=== PATIENT | male | born 1970 | race Caucasian/White ===

== ENCOUNTER 2017-01-24 04:00 | Emergency (ER) | payer MEDICARE ==
--- NOTE | 2017-01-24 04:51 | ER Document Report ---
ED Extremity Problem, Lower - General Chief Complaint: Knee Pain Stated Complaint: FALL/LEFT KNEE PAIN Time Seen by Provider: 01/24/17 04:47 Mode of Arrival: Wheelchair Information source: Patient Notes: 46 yo obese diabetic male slipped and fell 3 times on his left knee yesterday. Increased swelling and pain but able to walk on it. Hx gout in toe. No fever or generalized pain. Xray has been done and is negative. TRAVEL OUTSIDE OF THE [place] IN LAST 30 DAYS: No - Related Data Allergies/Adverse Reactions: Iodinated Contrast Media - Oral and [IV Dye, Iodine Containing] Allergy ( Verified 01/24/17 06:25) Anaphylaxis iodine Allergy (Verified 01/24/17 06:25) Shellfish * [Shellfish] Allergy (Verified 01/24/17 06:25) Past Medical History - General Information source: Patient - Social History Smoking Status: Current Every Day Smoker Frequency of alcohol use: None Drug Abuse: None Lives with: Spouse/Significant other Family History: Reviewed & Not Pertinent Patient has suicidal ideation: No Patient has homicidal ideation: No - Past Medical History Cardiac Medical History: Reports: Hx Atrial Fibrillation, Hx Congestive Heart Failure, Hx Coronary Artery Disease, Hx Heart Attack - 2013, Hx Hypercholesterolemia, Hx Hypertension Pulmonary Medical History: Denies: Hx Tuberculosis Neurological Medical History: Reports: Hx Migraine Endocrine Medical History: Reports: Hx Diabetes Mellitus Type 2 Renal/ Medical History: Reports: Hx Kidney Stones. Denies: Hx Peritoneal Dialysis Musculoskeltal Medical History: Reports Hx Arthritis, Reports Hx Musculoskeletal Deformity, Reports Hx Musculoskeletal Trauma Psychiatric Medical History: Reports: Hx Depression Traumatic Medical History: Reports: Hx Fractures Past Surgical History: Reports: Hx Cardiac Catheterization - x 10-12, Hx Cardiac Surgery - pacer/defib; stents x 2, Hx Internal Defibrillator, Hx Orthopedic Surgery - L knee x2; R knee x13, Hx Pacemaker - Immunizations Immunizations up to date: Yes Hx Diphtheria, Pertussis, Tetanus Vaccination: Yes Hx Pneumococcal Vaccination: 07/26/12 Review of Systems - Review of Systems Constitutional: No symptoms reported EENT: No symptoms reported Cardiovascular: No symptoms reported Respiratory: No symptoms reported Gastrointestinal: No symptoms reported Genitourinary: No symptoms reported Male Genitourinary: No symptoms reported Musculoskeletal: See HPI Skin: No symptoms reported Hematologic/Lymphatic: No symptoms reported Neurological/Psychological: No symptoms reported Physical Exam - Vital signs Vitals: Temp Pulse Resp BP Pulse Ox 98.5 F 102 H 16 126/87 H 97 01/24/17 04:03 01/24/17 04:03 01/24/17 04:03 01/24/17 04:03 01/24/17 04:03 Interpretation: Normal - General General appearance: Appears well, Alert - HEENT Head: Normocephalic, Atraumatic Eyes: Normal Pupils: PERRL Neck: Supple - Respiratory Respiratory status: No respiratory distress Chest status: Nontender Breath sounds: Normal Chest palpation: Normal - Cardiovascular Rhythm: Regular Heart sounds: Normal auscultation Murmur: No - Abdominal Inspection: Normal Distension: No distension Bowel sounds: Normal Tenderness: Nontender Organomegaly: No organomegaly - Back Back: Normal, Nontender - Extremities General upper extremity: Normal inspection, Nontender, Normal color, Normal ROM , Normal temperature General lower extremity: Normal inspection, Nontender, Normal color, Normal ROM , Normal temperature, Normal weight bearing. No: Ike's sign Knee: Tender - mild anterior left knee erythema, Joint effusion, Pain with ROM, Patellar tendon intact. No: Tender joint line, Unable to bear weight - Neurological Neuro grossly intact: Yes Cognition: Normal Orientation: AAOx4 [place] Coma Scale Eye Opening: Spontaneous [place] Coma Scale Verbal: Oriented [place] Coma Scale Motor: Obeys Commands [place] Coma Scale Total: 15 Speech: Normal Motor strength normal: LUE, RUE, LLE, RLE Sensory: Normal - Psychological Associated symptoms: Normal affect, Normal mood - Skin Skin Temperature: Warm Skin Moisture: Dry Skin Color: Normal Course - Re-evaluation Re-evalutation: 01/24/17 06:30 xray shows effusion, arthritis. - Vital Signs Vital signs: Temp Pulse Resp BP Pulse Ox 98.2 F 90 18 105/60 93 01/24/17 06:36 01/24/17 06:36 01/24/17 06:36 01/24/17 06:36 01/24/17 06:36 - Laboratory Result Diagrams: 01/24/17 05:30 01/24/17 05:30 Laboratory results interpreted by me: 01/24/17 01/24/17 05:30 05:30 WBC 14.8 H RDW 14.4 H Seg Neutrophils % 84.6 H Lymphocytes % 6.2 L Absolute Neutrophils 12.5 H Chloride 95 L Glucose 290 H Uric Acid 8.8 H Calcium 10.3 H Procedures - Immobilization Left Knee Time completed: 06:50 Pre-Proc Neuro Vasc Exam: Normal Immobilizer type: Chavez wrap Performed by: RN Post-Proc Neuro Vasc Exam: Normal Alignment checked and good: Yes Discharge - Discharge Clinical Impression: Swelling of left knee joint, Traumatic joint effusion, knee arthritis Gout Qualifiers: Gout site: knee Gout etiology: unspecified cause Chronicity: acute Laterality: left Qualified Code(s): M10.9 - Gout, unspecified Condition: Good Disposition: HOME, SELF-CARE Instructions: Use of Crutches ([facility]), Oral Narcotic Medication ([facility]), Gout ([facility]) , Gout Diet ([facility]), Knee Effusion ([facility]) Additional Instructions: elevate chavez wrap anti inflammatory medication pain medication see orthopedic doctor for follow up to er if worse watch your glucose closely Prescriptions: Oxycodone HCl/Acetaminophen [Percocet 5-325 mg Tablet] 1 - 2 tab PO ASDIR PRN # 15 tablet PRN Reason: Prednisone [Deltasone 10 mg Tablet] 10 mg PO ASDIR PRN #21 tablet PRN Reason: Referrals: RICHARD CARBALLO MD [ACTIVE STAFF] - Follow up as needed
[2017-01-24] MEDS ORDERED: OXYCODONE-ACETAMINOPHEN 5-325 MG TABLET PO ONE (04:52)
[2017-01-24] MEDS ORDERED: ONDANSETRON 4 MG TAB.RAPDIS PO ONE (04:52)
--- NOTE | 2017-01-24 05:42 | RADIOLOGY REPORT (SQ) ---
EXAM DESCRIPTION: KNEE LEFT 4 VIEW COMPLETED DATE/TIME: 01/24/2017 5:24 am REASON FOR STUDY: fall . The entire knee is swollen, pain worse medially. COMPARISON: Left knee x-ray 05/16/2012, 05/13/2010 NUMBER OF VIEWS: Four views. TECHNIQUE: AP, lateral, and both oblique radiographic images acquired of the left knee. LIMITATIONS: None. FINDINGS: MINERALIZATION: Normal. BONES: No acute fracture or dislocation. Tricompartmental degenerative changes are noted, worse at t he patellofemoral compartment. Postsurgical changes at the proximal tibia. JOINT: Moderate joint effusion. SOFT TISSUES: Soft tissue swelling at the medial aspect of the knee. No radiopaque foreign body. IMPRESSION: Soft tissue swelling and moderate joint effusion. No radiographic evidence for acute fr acture. Degenerative changes. TECHNICAL DOCUMENTATION: JOB ID: [id number] [employer]- All Rights Reserved
[2017-01-24 06:03] LABS: ABSOLUTE BASOPHILS # (AUTO) 0.1 10^3/uL (0.0-0.2); ABSOLUTE EOSINOPHILS # (AUTO) 0.1 10^3/uL (0.0-0.6); ABSOLUTE LYMPHOCYTES (AUTO) 0.9 10^3/uL (0.5-4.7); ABSOLUTE MONOCYTES (AUTO) 1.2 10^3/uL (0.1-1.4); ABSOLUTE NEUT (AUTO) 12.5 10^3/uL (1.7-8.2); BASOPHILS % (AUTO) 0.6 % (0-2); EOSINOPHILS % (AUTO) 0.4 % (0-6); HEMATOCRIT 47.5 % (37.9-51.0); HEMOGLOBIN 16.1 g/dL (13.5-17.0); HGB HCT DIFFERENCE 0.8; LYMPHOCYTES % (AUTO) 6.2 % (13-45); MEAN CORPUSCULAR HGB CONC 33.9 g/dL (32.0-36.0); MEAN CORPUSCULAR VOLUME 91 fl (80-97); MONOCYTES % (AUTO) 8.2 % (3-13); RED BLOOD COUNT 5.19 10^6/uL (4.35-5.55); RED CELL DISTRIBUTION WIDTH 14.4 % (11.5-14.0); SEGMENTED NEUTROPHILS % (AUTO) 84.6 % (42-78); WHITE BLOOD COUNT 14.8 10^3/uL (4.0-10.5)
[2017-01-24 06:14] LABS: ALANINE AMINOTRANSFERASE 28 U/L (21-72); ALBUMIN 4.7 g/dL (3.5-5.0); ALKALINE PHOSPHATASE 101 U/L (38-126); ANION GAP 18 (5-19); ASPARTATE AMINO TRANSFERASE 19 U/L (17-59); BILIRUBIN,DIRECT 0.3 mg/dL (0.0-0.4); BILIRUBIN,TOTAL 1.3 mg/dL (0.2-1.3); BLOOD UREA NITROGEN 15 mg/dL (7-20); CALCIUM 10.3 mg/dL (8.4-10.2); CARBON DIOXIDE 24 mmol/L (22-30); CHLORIDE 95 mmol/L (98-107); CREATININE RESULT 1.05 mg/dL (0.52-1.25); GLUCOSE 290 mg/dL (75-110); POTASSIUM 3.8 mmol/L (3.6-5.0); SODIUM 137.2 mmol/L (137-145); URIC ACID 8.8 mg/dL (3.5-8.5)
[2017-01-24] MEDS ORDERED: METHYLPREDNISOLONE INJ 125 MG/2 ML SDV IV ONE (06:27)
[2017-01-24 06:43] VITALS: BP 105/60
== END 2017-01-24 06:50 | disposition home or self-care (01) ==
LOC: ER 04:00
DX: M25.462 Effusion, left knee (principal); M17.12 Unilateral primary osteoarthritis, left knee; M10.9 Gout, unspecified; M25.562 Pain in left knee; W01.0XXA Fall on same level from slipping, tripping and stumbling without subsequent striking against object, initial encounter; F17.200 Nicotine dependence, unspecified, uncomplicated; E66.9 Obesity, unspecified; I48.91 Unspecified atrial fibrillation; I50.9 Heart failure, unspecified; I25.10 Atherosclerotic heart disease of native coronary artery without angina pectoris; I11.0 Hypertensive heart disease with heart failure; E78.00 Pure hypercholesterolemia, unspecified; Z91.013 Allergy to seafood; Z87.442 Personal history of urinary calculi; Z11.9 Encounter for screening for infectious and parasitic diseases, unspecified; Z95.810 Presence of automatic (implantable) cardiac defibrillator; I25.2 Old myocardial infarction
CPT/HCPCS: 99283; 96374; 36415; 87040; 84550; 85025; 80053; 73562; A9270 ×2; J2930; S0119

== ENCOUNTER 2017-05-17 18:17 | Emergency (ER) | payer MEDICARE ==
--- NOTE | 2017-05-17 18:24 | ER Document Report ---
ED Extremity Problem, Upper - General Stated Complaint: LEFT ARM PAIN AND SWELLING Time Seen by Provider: 05/17/17 18:18 Mode of Arrival: Wheelchair Information source: Patient TRAVEL OUTSIDE OF THE [place] IN LAST 30 DAYS: No - HPI Patient complains to provider of: Pain, Swelling, Left Onset: Yesterday Recent injury: No Quality of pain: Achy, Pressure Severity of pain: Moderate Pain Level: 3 Associated symptoms: Short of breath Exacerbated by: Movement Relieved by: Nothing Notes: Patient is a 47-year-old male who was sent to the emergency room by cardiothoracic surgery at [facility] for complaints of left arm swelling, patient has a history of coronary artery disease and diabetes, as well as gout, and is currently on the heart transplant wait list, Dr. Bowen the plumbing mechanic requested that upon arrival patient be transferred to [facility] for evaluation of his left upper extremity swelling because of concern of a possible DVT, patient reports that his symptoms started sometime yesterday, he saw his primary care provider who thought his symptoms were likely related to gout and he was started on tramadol, this is not touching his pain at all, patient does take Coumadin 7.5 mg daily with 11 mg on Tuesdays and , he denies any chest pain or shortness of breath, no injury or trauma - Related Data Allergies/Adverse Reactions: Iodinated Contrast- Oral and IV Dye [IV Dye, Iodine Containing] Allergy ( Verified 01/24/17 06:25) Anaphylaxis iodine Allergy (Verified 01/24/17 06:25) Shellfish * [Shellfish] Allergy (Verified 01/24/17 06:25) Home Medications: Current Home Medications Alprazolam 1 tab PO DAILY PRN 05/17/17 [History] Aspirin 1 tab PO DAILY 05/17/17 [History] Atorvastatin Calcium 1 tab PO DAILY 05/17/17 [History] Carvedilol 2 tab PO BID 05/17/17 [History] Diazepam 1 tab PO BID 05/17/17 [History] Furosemide [Lasix] 1 tab PO DAILY 05/17/17 [History] Glimepiride 1 tab PO DAILY 05/17/17 [History] Magnesium Oxide 1 tab PO DAILY 05/17/17 [History] Metformin HCl 1 tab PO BID 05/17/17 [History] Metolazone 1 tab PO DAILY 05/17/17 [History] Naproxen 1 tab PO BID 05/17/17 [History] Sacubitril/Valsartan [Entresto 49 mg-51 mg Tablet] 1 tab PO DAILY 05/17/17 [ History] Sertraline HCl 1 tab PO DAILY 05/17/17 [History] Spironolactone 0.5 tab PO BID 05/17/17 [History] Tramadol HCl 1 tab PO BID 05/17/17 [History] Warfarin Sodium 1 tab PO DAILY 05/17/17 [History] Zolpidem Tartrate [Zolpidem Tartrate] 1 tab PO DAILY 05/17/17 [History] Past Medical History - General Information source: Patient - Social History Smoking Status: Unknown if Ever Smoked Family History: Reviewed & Not Pertinent - Past Medical History Cardiac Medical History: Reports: Hx Atrial Fibrillation, Hx Congestive Heart Failure, Hx Coronary Artery Disease, Hx Heart Attack - 2013, Hx Hypercholesterolemia, Hx Hypertension Pulmonary Medical History: Denies: Hx Tuberculosis Neurological Medical History: Reports: Hx Migraine Endocrine Medical History: Reports: Hx Diabetes Mellitus Type 2 Renal/ Medical History: Reports: Hx Kidney Stones. Denies: Hx Peritoneal Dialysis Musculoskeltal Medical History: Reports Hx Arthritis, Reports Hx Musculoskeletal Deformity, Reports Hx Musculoskeletal Trauma Psychiatric Medical History: Reports: Hx Depression Traumatic Medical History: Reports: Hx Fractures Past Surgical History: Reports: Hx Cardiac Catheterization - x 10-12, Hx Cardiac Surgery - pacer/defib; stents x 2, Hx Internal Defibrillator, Hx Orthopedic Surgery - L knee x2; R knee x13, Hx Pacemaker - Immunizations Immunizations up to date: Yes Hx Diphtheria, Pertussis, Tetanus Vaccination: Yes Hx Pneumococcal Vaccination: 07/26/12 Review of Systems - Review of Systems Constitutional: No symptoms reported EENT: No symptoms reported Cardiovascular: No symptoms reported Respiratory: No symptoms reported Gastrointestinal: No symptoms reported Genitourinary: No symptoms reported Male Genitourinary: No symptoms reported Musculoskeletal: See HPI Skin: No symptoms reported Hematologic/Lymphatic: No symptoms reported Neurological/Psychological: No symptoms reported -: Yes All other systems reviewed and negative Physical Exam - Vital signs Vitals: Temp Pulse Resp BP Pulse Ox 98.0 F 76 18 140/84 H 94 05/17/17 18:30 05/17/17 18:30 05/17/17 18:30 05/17/17 18:30 05/17/17 18:30 Interpretation: Normal - General General appearance: Appears well, Alert - HEENT Head: Normocephalic, Atraumatic Eyes: Normal Pupils: PERRL - Respiratory Respiratory status: No respiratory distress Chest status: Nontender Breath sounds: Normal Chest palpation: Normal - Cardiovascular Rhythm: Regular Heart sounds: Normal auscultation Murmur: No - Abdominal Inspection: Normal, Morbidly Obese Distension: No distension Bowel sounds: Normal Tenderness: Nontender Organomegaly: No organomegaly - Back Back: Normal, Nontender - Extremities General lower extremity: Normal inspection, Nontender, Normal color, Normal ROM , Normal temperature, Normal weight bearing. No: Ike's sign Arm: Other - Patient's left arm is moderately swollen, there is mild diffuse erythema distally, distal sensation and motor is intact with 2+ radial pulses, there is slight increased warmth on the dorsal surface of the hand, no open wounds, no area of induration or fluctuance, brisk capillary refill - Neurological Neuro grossly intact: Yes Cognition: Normal Orientation: AAOx4 [place] Coma Scale Eye Opening: Spontaneous [place] Coma Scale Verbal: Oriented [place] Coma Scale Motor: Obeys Commands [place] Coma Scale Total: 15 Speech: Normal Motor strength normal: LUE, RUE, LLE, RLE Sensory: Normal - Psychological Associated symptoms: Normal affect, Normal mood - Skin Skin Temperature: Warm Skin Moisture: Dry Skin Color: Normal Course - Re-evaluation Re-evalutation: 751 I recieved a call from Dr Bowen, stating that patient was coming to this emergency room for complaints of left upper extremity swelling and he requested that patient basically be immediately transferred to ER to ER to [facility] for evaluation, I asked if any test should be performed here prior to transfer and he stated no that was not necessary that he would just like the patient to be transferred to their facility 05/17/17 18:27 Call was placed to [facility] transfer center, spoke with Floyd, who will call back with the cardiac transplant team 05/17/17 19:14 Patient was discussed with the CCU fellow, Dr TESSY Healy who discussed the patient with the on-call cardiac transplant attending, Dr. Bonner, who recommends that we worked the patient up in our emergency room with a upper extremity Doppler and any other appropriate tests and then call back with results, they do not accept patient for immediate transfer to their facility for evaluation at this point in time as was previously requested by Dr. Bowen Lab and imaging findings were discussed with patient at bedside which are unremarkable with no evidence of a DVT on upper extremity Doppler, symptoms likely related to gout, and tramadol is not really helping his pain at home, therefore patient was placed on Percocet, he was also notified that his INR was only 1.05, he was advised to take 1-1/2 tablets of his 7.5 mg Coumadin for the next 3 days and follow-up with his primary care provider on Saturday for repeat blood work, patient reports that he already has an appointment with his primary care provider on Saturday and agrees to follow-up appropriately, he was advised to return if symptoms worsen, patient and spouse at bedside acknowledge understanding and agreement with this plan - Vital Signs Vital signs: Temp Pulse Resp BP Pulse Ox 98.0 F 76 11 L 132/89 H 90 L 05/17/17 18:30 05/17/17 18:30 05/17/17 21:01 05/17/17 21:31 05/17/17 21:31 - Laboratory Result Diagrams: 05/17/17 19:12 05/17/17 19:12 Laboratory results interpreted by me: 05/17/17 05/17/17 05/17/17 19:12 19:12 19:12 WBC 12.5 H Seg Neutrophils % 78.3 H Lymphocytes % 11.1 L Absolute Neutrophils 9.8 H Sodium 133.8 L Chloride 93 L BUN 26 H Glucose 228 H NT-Pro-B Natriuret Pep 146 H - Diagnostic Test Radiology reviewed: Image reviewed, Reports reviewed Discharge - Discharge Clinical Impression: Left arm pain Condition: Stable Disposition: HOME, SELF-CARE Instructions: Arm Pain, Nonspecific ([facility]), Gout ([facility]) Additional Instructions: Take 1-1/2 tablets of your 7.5 mg Coumadin for the next 3 days. Follow up with your primary care provider on Saturday as scheduled. Return to the emergency room immediately if symptoms worsen or any additional concerns. Prescriptions: Oxycodone HCl/Acetaminophen [Percocet 5-325 mg Tablet] 1 - 2 tab PO ASDIR PRN # 20 tablet PRN Reason: Referrals: PAUL ROME MD [Primary Care Provider] - Follow up as needed
[2017-05-17] MEDS ORDERED: MORPHINE SULFATE 10 MG/ML INJ IV ONE ×2 (19:12→21:11)
[2017-05-17 19:27] LABS: ABSOLUTE BASOPHILS # (AUTO) 0.1 10^3/uL (0.0-0.2); ABSOLUTE EOSINOPHILS # (AUTO) 0.1 10^3/uL (0.0-0.6); ABSOLUTE LYMPHOCYTES (AUTO) 1.4 10^3/uL (0.5-4.7); ABSOLUTE MONOCYTES (AUTO) 1.1 10^3/uL (0.1-1.4); ABSOLUTE NEUT (AUTO) 9.8 10^3/uL (1.7-8.2); BASOPHILS % (AUTO) 0.7 % (0-2); EOSINOPHILS % (AUTO) 0.8 % (0-6); HEMATOCRIT 41.3 % (37.9-51.0); HEMOGLOBIN 14.6 g/dL (13.5-17.0); HGB HCT DIFFERENCE 2.5; LYMPHOCYTES % (AUTO) 11.1 % (13-45); MEAN CORPUSCULAR HEMOGLOBIN 31.5 pg (27.0-33.4); MEAN CORPUSCULAR HGB CONC 35.5 g/dL (32.0-36.0); MEAN CORPUSCULAR VOLUME 89 fl (80-97); MONOCYTES % (AUTO) 9.1 % (3-13); RED BLOOD COUNT 4.65 10^6/uL (4.35-5.55); RED CELL DISTRIBUTION WIDTH 13.9 % (11.5-14.0); SEGMENTED NEUTROPHILS % (AUTO) 78.3 % (42-78); WHITE BLOOD COUNT 12.5 10^3/uL (4.0-10.5)
[2017-05-17 19:31] LABS: PROTHROMBIN TIME 14.4 SEC (11.4-15.4)
[2017-05-17 19:32] LABS: PARTIAL THROMBOPLASTIN TIME 32.9 SEC (23.5-35.8)
[2017-05-17 19:38] LABS: ANION GAP 14 (5-19); BLOOD UREA NITROGEN 26 mg/dL (7-20); CALCIUM 9.5 mg/dL (8.4-10.2); CARBON DIOXIDE 27 mmol/L (22-30); CHLORIDE 93 mmol/L (98-107); CREATININE RESULT 0.98 mg/dL (0.52-1.25); GLUCOSE 228 mg/dL (75-110); POTASSIUM 3.6 mmol/L (3.6-5.0); SODIUM 133.8 mmol/L (137-145)
[2017-05-17 19:47] LABS: D-DIMER < 0.27 ug/mL (0.00-0.50)
[2017-05-17] MEDS ORDERED: HYDROCODONE/ACETAMINOPHEN 5-325 MG 6 TAB/DSPK PO PRN (21:13)
[2017-05-17 21:55] VITALS: BP 132/89
--- NOTE | 2017-05-18 10:44 | XCELERA REPORT ---
[address] [address] Upper Extremity Venous Evaluation Name: KEAGAN RODARTE Age: 47 yrs Gender: Male : 1970 Patient Status: Emergency Patient Location: ER Study Date: 05/17/2017 08:35 PM Procedure: Unilateral duplex scan of the left upper extremity veins was performed, including responses to compression and other maneuvers. Reason For Study: left arm swelling Ordering Physician: BETSY ESTRADA Performed By: Jeferson Alcala Left Sided Venous Evaluation Normal vessel filling wall to wall, compression and augmentation as well as Colour flow down to the forearm veins. Interpretation Summary Normal compression, patency, spontaneous and phasic flow of the left upper extremity veins. : BETSY ESTRADA > Rashaad Zamora
== END 2017-05-17 21:55 | disposition home or self-care (01) ==
LOC: ER 18:17
DX: M79.602 Pain in left arm (principal); M79.89 Other specified soft tissue disorders; L53.9 Erythematous condition, unspecified; I25.10 Atherosclerotic heart disease of native coronary artery without angina pectoris; I48.91 Unspecified atrial fibrillation; I25.2 Old myocardial infarction; I10 Essential (primary) hypertension; E11.9 Type 2 diabetes mellitus without complications; R06.02 Shortness of breath; Z87.39 Personal history of other diseases of the musculoskeletal system and connective tissue; Z79.01 Long term (current) use of anticoagulants; Z91.041 Radiographic dye allergy status; Z91.013 Allergy to seafood; Z95.810 Presence of automatic (implantable) cardiac defibrillator
CPT/HCPCS: 96376; 99284; 96374; 36415; 85025; 85610; 85730; 80048; 84484; 85379; 83880; 93971 ×2; J2270; A9270

== ENCOUNTER 2017-05-22 10:27 | Emergency (ER) | payer MEDICARE ==
--- NOTE | 2017-05-22 10:50 | ER Document Report ---
ED Medical Screen (RME) - General Chief Complaint: Arm Pain Stated Complaint: LEFT ARM PAIN Time Seen by Provider: 05/22/17 10:34 Notes: Patient presents with left arm pain. He states he was seen here this past Saturday and diagnosed with gout in the left wrist. He states the arm was ultrasound but was negative for DVT. He states he has a history of gout and usually when he takes prednisone the pain disappears. He states the pain currently is actually gotten worse despite the steroids. He states that he was given Percocet but he does not like them so he does not take them. He states the pain is now moving up the arm and going into his chest. He is currently on the list for heart transplant at [place]. TRAVEL OUTSIDE OF THE [place].S. IN LAST 30 DAYS: No - Related Data Allergies/Adverse Reactions: Iodinated Contrast- Oral and IV Dye [IV Dye, Iodine Containing] Allergy ( Verified 05/22/17 10:33) Anaphylaxis iodine Allergy (Verified 05/22/17 10:33) Shellfish * [Shellfish] Allergy (Verified 05/22/17 10:33) Past Medical History - Social History Chew tobacco use (# tins/day): Yes - 0.5 Frequency of alcohol use: None Drug Abuse: None Family history: CAD, DM, Hyperlipidemia, Hypertension, Malignancy - Past Medical History Cardiac Medical History: Reports: Hx Atrial Fibrillation, Hx Congestive Heart Failure, Hx Coronary Artery Disease, Hx Heart Attack - 2013, Hx Hypercholesterolemia, Hx Hypertension Pulmonary Medical History: Denies: Hx Tuberculosis Neurological Medical History: Reports: Hx Migraine Endocrine Medical History: Reports: Hx Diabetes Mellitus Type 2 Renal/ Medical History: Reports: Hx Kidney Stones. Denies: Hx Peritoneal Dialysis Musculoskeltal Medical History: Reports Hx Arthritis, Reports Hx Musculoskeletal Deformity, Reports Hx Musculoskeletal Trauma Psychiatric Medical History: Reports: Hx Depression Traumatic Medical History: Reports: Hx Fractures Past Surgical History: Reports: Hx Cardiac Catheterization - x 10-12, Hx Cardiac Surgery - pacer/defib; stents x 2, Hx Internal Defibrillator, Hx Orthopedic Surgery - L knee x2; R knee x13, Hx Pacemaker - Immunizations Immunizations up to date: Yes Hx Diphtheria, Pertussis, Tetanus Vaccination: Yes Physical Exam - Vital signs Vitals: Temp Pulse Resp BP Pulse Ox 97.8 F 68 20 131/90 H 98 05/22/17 10:30 05/22/17 10:30 05/22/17 10:30 05/22/17 10:30 05/22/17 10:30 Course - Vital Signs Vital signs: Temp Pulse Resp BP Pulse Ox 97.8 F 68 20 131/90 H 98 05/22/17 10:30 05/22/17 10:30 05/22/17 10:30 05/22/17 10:30 05/22/17 10:30
[2017-05-22 11:08] LABS: ABSOLUTE BASOPHILS # (AUTO) 0.1 10^3/uL (0.0-0.2); ABSOLUTE EOSINOPHILS # (AUTO) 0.1 10^3/uL (0.0-0.6); ABSOLUTE MONOCYTES (AUTO) 0.6 10^3/uL (0.1-1.4); ABSOLUTE NEUT (AUTO) 5.3 10^3/uL (1.7-8.2); BASOPHILS % (AUTO) 1.1 % (0-2); EOSINOPHILS % (AUTO) 1.5 % (0-6); HEMATOCRIT 42.1 % (37.9-51.0); HEMOGLOBIN 14.9 g/dL (13.5-17.0); HGB HCT DIFFERENCE 2.6; LYMPHOCYTES % (AUTO) 24.2 % (13-45); MEAN CORPUSCULAR HEMOGLOBIN 31.4 pg (27.0-33.4); MEAN CORPUSCULAR HGB CONC 35.5 g/dL (32.0-36.0); MEAN CORPUSCULAR VOLUME 89 fl (80-97); MONOCYTES % (AUTO) 7.5 % (3-13); RED BLOOD COUNT 4.75 10^6/uL (4.35-5.55); RED CELL DISTRIBUTION WIDTH 13.7 % (11.5-14.0); SEGMENTED NEUTROPHILS % (AUTO) 65.7 % (42-78); WHITE BLOOD COUNT 8.1 10^3/uL (4.0-10.5)
--- NOTE | 2017-05-22 11:29 | RADIOLOGY REPORT (SQ) ---
EXAM DESCRIPTION: CHEST SINGLE VIEW COMPLETED DATE/TIME: 05/22/2017 11:09 am REASON FOR STUDY: cp COMPARISON: April 2016 EXAM PARAMETERS: NUMBER OF VIEWS: One view. TECHNIQUE: Single frontal radiographic view of the chest acquired. RADIATION DOSE: NA LIMITATIONS: None. FINDINGS: LUNGS AND PLEURA: No opacities, masses or pneumothorax. No pleural effusion. MEDIASTINUM AND HILAR STRUCTURES: No masses. Contour normal. HEART AND VASCULAR STRUCTURES: Heart normal in size. Normal vasculature. BONES: No acute findings. HARDWARE: AICD device is unchanged in position. OTHER: No other significant finding. IMPRESSION: NO ACUTE RADIOGRAPHIC FINDING IN THE CHEST. TECHNICAL DOCUMENTATION: JOB ID: [id number]
[2017-05-22 11:33] LABS: ALANINE AMINOTRANSFERASE 33 U/L (21-72); ALBUMIN 4.2 g/dL (3.5-5.0); ALKALINE PHOSPHATASE 91 U/L (38-126); ANION GAP 12 (5-19); ASPARTATE AMINO TRANSFERASE 20 U/L (17-59); BILIRUBIN,DIRECT 0.4 mg/dL (0.0-0.4); BILIRUBIN,TOTAL 0.8 mg/dL (0.2-1.3); BLOOD UREA NITROGEN 24 mg/dL (7-20); CALCIUM 9.9 mg/dL (8.4-10.2); CARBON DIOXIDE 31 mmol/L (22-30); CHLORIDE 97 mmol/L (98-107); CREATININE RESULT 0.83 mg/dL (0.52-1.25); GLUCOSE 208 mg/dL (75-110); POTASSIUM 3.8 mmol/L (3.6-5.0); SODIUM 140.2 mmol/L (137-145); TOTAL PROTEIN 7.3 g/dL (6.3-8.2)
[2017-05-22] MEDS ORDERED: MORPHINE SULFATE 10 MG/ML INJ IV ONE ×2 (12:07→14:46)
--- NOTE | 2017-05-22 12:24 | EKG REPORT ---
SEVERITY:- ABNORMAL ECG - SINUS RHYTHM IVCD, CONSIDER ATYPICAL LBBB : Confirmed by: Felisha Levy MD 22-May-2017 12:23:42
--- NOTE | 2017-05-22 13:03 | RADIOLOGY REPORT (SQ) ---
EXAM DESCRIPTION: FOREARM LEFT COMPLETED DATE/TIME: 05/22/2017 12:39 pm REASON FOR STUDY: arm pain COMPARISON: None. NUMBER OF VIEWS: Three views TECHNIQUE: 3 radiographic images acquired of the left forearm, including elbow and wrist in at least one projection. LIMITATIONS: None. FINDINGS: MINERALIZATION: Normal. BONES: No acute fracture or dislocation is seen. There is some bony deformity of the distal ulna wit h a well corticated ununited bone fragment at the level of the ulnar styloid process presumably relat ed to previous trauma. SOFT TISSUES: A radiopaque density is identified projected in the soft tissues at the level of the di stal ulna anteriorly which could conceivably represent a radiopaque foreign body or calcification alt devora this may be external to the patient. Clinical correlation is recommended OTHER: No other significant finding. IMPRESSION: No acute fracture or dislocation. Bony deformity of the distal ulna as noted above most consistent with previous trauma. Other findings as noted TECHNICAL DOCUMENTATION: JOB ID: [id number] [employer]- All Rights Reserved
--- NOTE | 2017-05-22 14:10 | ER Document Report ---
ED General - General Chief Complaint: Arm Pain Stated Complaint: LEFT ARM PAIN Time Seen by Provider: 05/22/17 10:34 Mode of Arrival: Ambulatory Information source: Patient Notes: 47-year-old male presents with left wrist pain. Patient has a history of gout is on cardiac transplant list. Pt notes last week he had pain in the wrist with swelling, doppler was negative, pt started on low dose prednisone with some relief as the swelling resolved then started to hurt again TRAVEL OUTSIDE OF THE [place] IN LAST 30 DAYS: No - HPI Onset: Last week Onset/Duration: Intermittent Quality of pain: Achy Severity: Moderate Pain Level: 3 Associated symptoms: Other Exacerbated by: Denies Relieved by: Other - prednsione Similar symptoms previously: Yes Recently seen / treated by doctor: Yes - Related Data Allergies/Adverse Reactions: Iodinated Contrast- Oral and IV Dye [IV Dye, Iodine Containing] Allergy ( Verified 05/22/17 10:33) Anaphylaxis iodine Allergy (Verified 05/22/17 10:33) Shellfish * [Shellfish] Allergy (Verified 05/22/17 10:33) Past Medical History - Social History Smoking Status: Never Smoker Cigarette use (# per day): No Chew tobacco use (# tins/day): Yes - 0.5 Smoking Education Provided: No Frequency of alcohol use: None Drug Abuse: None Family History: Reviewed & Not Pertinent - Past Medical History Cardiac Medical History: Reports: Hx Atrial Fibrillation, Hx Congestive Heart Failure, Hx Coronary Artery Disease, Hx Heart Attack - 2013, Hx Hypercholesterolemia, Hx Hypertension Pulmonary Medical History: Denies: Hx Tuberculosis Neurological Medical History: Reports: Hx Migraine Endocrine Medical History: Reports: Hx Diabetes Mellitus Type 2 Renal/ Medical History: Reports: Hx Kidney Stones. Denies: Hx Peritoneal Dialysis Musculoskeltal Medical History: Reports Hx Arthritis, Reports Hx Musculoskeletal Deformity, Reports Hx Musculoskeletal Trauma Psychiatric Medical History: Reports: Hx Depression Traumatic Medical History: Reports: Hx Fractures Past Surgical History: Reports: Hx Cardiac Catheterization - x 10-12, Hx Cardiac Surgery - pacer/defib; stents x 2, Hx Internal Defibrillator, Hx Orthopedic Surgery - L knee x2; R knee x13, Hx Pacemaker - Immunizations Immunizations up to date: Yes Hx Diphtheria, Pertussis, Tetanus Vaccination: Yes Hx Pneumococcal Vaccination: 07/26/12 Review of Systems - Review of Systems Notes: REVIEW OF SYSTEMS: CONSTITUTIONAL : Denies fever, chills, or sweats. Denies recent illness. EENT: Denies eye, ear, throat, or mouth pain or symptoms. Denies nasal or sinus congestion or discharge. Denies throat, tongue, or mouth swelling or difficulty swallowing. CARDIOVASCULAR: Denies chest pain. Denies palpitations or racing or irregular heart beat. Denies ankle edema. RESPIRATORY: Denies cough, cold, or chest congestion. Denies shortness of breath, difficulty breathing, or wheezing. GASTROINTESTINAL: Denies abdominal pain or distention. Denies nausea, vomiting , or diarrhea. Denies blood in vomitus, stools, or per rectum. Denies black, tarry stools. Denies constipation. GENITOURINARY: Denies difficulty urinating, painful urination, burning, frequency, blood in urine, or discharge. MUSCULOSKELETAL: admits to left wrist pain swelling SKIN: Denies rash, lesions or sores. HEMATOLOGIC : Denies easy bruising or bleeding. LYMPHATIC: Denies swollen, enlarged glands. NEUROLOGICAL: Denies confusion or altered mental status. Denies passing out or loss of consciousness. Denies dizziness or lightheadedness. Denies headache. Denies weakness or paralysis or loss of use of either side. Denies problems with gait or speech. Denies sensory loss, numbness, or tingling. Denies seizures. PSYCHIATRIC: Denies anxiety or stress. Denies depression, suicidal ideation, or homicidal ideation. ALL OTHER SYSTEMS REVIEWED AND NEGATIVE. Dictation was performed using [employer] voice recognition software PHYSICAL EXAMINATION: GENERAL: Well-appearing, well-nourished and in no acute distress. HEAD: Atraumatic, normocephalic. EYES: Pupils equal round and reactive to light, extraocular movements intact, sclera anicteric, conjunctiva are normal. ENT: Nares patent, oropharynx clear without exudates. Moist mucous membranes. NECK: Normal range of motion, supple without lymphadenopathy LUNGS: Breath sounds clear to auscultation bilaterally and equal. No wheezes rales or rhonchi. HEART: Regular rate and rhythm without murmurs ABDOMEN: Soft, nontender, nondistended abdomen. No guarding, no rebound. No masses appreciated. Musculoskeletal: Normal range of motion, no pitting or edema. No cyanosis. NEUROLOGICAL: Cranial nerves grossly intact. Normal speech, normal gait. Normal sensory, motor exams PSYCH: Normal mood, normal affect. SKIN: tenderness at the left wrist Physical Exam - Vital signs Vitals: Temp Pulse Resp BP Pulse Ox 97.8 F 68 20 131/90 H 98 05/22/17 10:30 05/22/17 10:30 05/22/17 10:30 05/22/17 10:30 05/22/17 10:30 Course - Re-evaluation Re-evalutation: 05/22/17 16:07 Given the patient's symptoms come and go were better with steroids and since worsened I do believe it is gout related as the patient does have gout-like symptoms in the past as well x-ray noted no abnormality patient will be started on high-dose prednisone and understands risks and benefits associated with this medication given that he is diabetic After performing a Medical Screening Examination, I estimate there is LOW risk for RUPTURED ESOPHAGUS, PNEUMOTHORAX, PULMONARY EMBOLISM, ACUTE CORONARY SYNDROME, OR THORACIC AORTIC DISSECTION, thus I consider the discharge disposition reasonable. I have reevaluated this patient multiple times and no significant life threatening changes are noted. The patient and I have discussed the diagnosis and risks, and we agree with discharging home with close follow-up. We also discussed returning to the Emergency Department immediately if new or worsening symptoms occur. We have discussed the symptoms which are most concerning (e.g., bloody sputum, worsening pain or shortness of breath) that necessitate immediate return. - Vital Signs Vital signs: Temp Pulse Resp BP Pulse Ox 98.1 F 51 L 20 107/70 94 05/22/17 14:54 05/22/17 14:54 05/22/17 14:54 05/22/17 14:54 05/22/17 14:54 - Laboratory Result Diagrams: 05/22/17 10:56 05/22/17 10:56 Laboratory results interpreted by me: 05/22/17 10:56 Chloride 97 L Carbon Dioxide 31 H BUN 24 H Glucose 208 H - Diagnostic Test Radiology reviewed: Image reviewed, Reports reviewed - chronic deformity ulnar Discharge - Discharge Clinical Impression: Left arm pain Gout Qualifiers: Gout site: wrist Gout etiology: unspecified cause Chronicity: acute Laterality : left Qualified Code(s): M10.9 - Gout, unspecified Condition: Stable Disposition: HOME, SELF-CARE Instructions: Gout ([facility]), Gout Diet ([facility]) Prescriptions: Oxycodone HCl [Oxycodone HCl 10 MG Tablet] 1 - 2 tab PO Q6H PRN #15 tablet PRN Reason: PAIN Prednisone [Deltasone 20 mg Tablet] 3 tab PO DAILY 5 Days tablet Referrals: PAUL ROME MD [Primary Care Provider] - Follow up as needed
[2017-05-22 15:02] VITALS: BP 107/70
== END 2017-05-22 14:52 | disposition home or self-care (01) ==
LOC: ER 10:27
DX: M10.9 Gout, unspecified (principal); M25.532 Pain in left wrist; E11.9 Type 2 diabetes mellitus without complications; I25.10 Atherosclerotic heart disease of native coronary artery without angina pectoris; I25.2 Old myocardial infarction; I10 Essential (primary) hypertension; I48.91 Unspecified atrial fibrillation; Z95.810 Presence of automatic (implantable) cardiac defibrillator; Z95.5 Presence of coronary angioplasty implant and graft; Z91.013 Allergy to seafood; Z91.040 Latex allergy status; Z72.0 Tobacco use
CPT/HCPCS: 93005; 99284; 96374; 36415; 85025; 80053; 84484; 71010; 73090; 93010; J2270

== ENCOUNTER 2017-06-04 04:21 | Emergency (ER) | payer MEDICARE ==
[2017-06-04] MEDS ORDERED: ASPIRIN 81 MG TABLET, CHEWABLE PO ONE (04:26)
[2017-06-04 07:24] LABS: ABSOLUTE BASOPHILS # (AUTO) 0.1 10^3/uL (0.0-0.2); ABSOLUTE LYMPHOCYTES (AUTO) 1.1 10^3/uL (0.5-4.7); ABSOLUTE MONOCYTES (AUTO) 1.4 10^3/uL (0.1-1.4); ABSOLUTE NEUT (AUTO) 12.7 10^3/uL (1.7-8.2); BASOPHILS % (AUTO) 0.5 % (0-2); EOSINOPHILS % (AUTO) 0.2 % (0-6); HEMATOCRIT 42.4 % (37.9-51.0); HEMOGLOBIN 14.6 g/dL (13.5-17.0); HGB HCT DIFFERENCE 1.4; LYMPHOCYTES % (AUTO) 7.4 % (13-45); MEAN CORPUSCULAR HEMOGLOBIN 30.8 pg (27.0-33.4); MEAN CORPUSCULAR HGB CONC 34.4 g/dL (32.0-36.0); MEAN CORPUSCULAR VOLUME 90 fl (80-97); MONOCYTES % (AUTO) 9.2 % (3-13); RED BLOOD COUNT 4.74 10^6/uL (4.35-5.55); RED CELL DISTRIBUTION WIDTH 13.9 % (11.5-14.0); SEGMENTED NEUTROPHILS % (AUTO) 82.7 % (42-78); WHITE BLOOD COUNT 15.3 10^3/uL (4.0-10.5)
--- NOTE | 2017-06-04 07:41 | RADIOLOGY REPORT (SQ) ---
EXAM DESCRIPTION: CHEST SINGLE VIEW COMPLETED DATE/TIME: 06/04/2017 7:19 am REASON FOR STUDY: cp COMPARISON: 05/17/2016, 08/30/2015, 11/28/2012 chest films EXAM PARAMETERS: NUMBER OF VIEWS: One view. TECHNIQUE: Single frontal radiographic view of the chest acquired. RADIATION DOSE: NA LIMITATIONS: None. FINDINGS: LUNGS AND PLEURA: No opacities, masses or pneumothorax. No pleural effusion. MEDIASTINUM AND HILAR STRUCTURES: No masses. Contour normal. HEART AND VASCULAR STRUCTURES: Heart normal in size. Normal vasculature. BONES: No acute findings. HARDWARE: Left-sided dual lead pacemaker unchanged OTHER: No other significant finding. IMPRESSION: No acute findings TECHNICAL DOCUMENTATION: JOB ID: [id number]
[2017-06-04 07:42] LABS: ALANINE AMINOTRANSFERASE 35 U/L (21-72); ALBUMIN 4.6 g/dL (3.5-5.0); ALKALINE PHOSPHATASE 85 U/L (38-126); ANION GAP 16 (5-19); ASPARTATE AMINO TRANSFERASE 12 U/L (17-59); BILIRUBIN,DIRECT 0.6 mg/dL (0.0-0.4); BILIRUBIN,TOTAL 2.5 mg/dL (0.2-1.3); BLOOD UREA NITROGEN 19 mg/dL (7-20); CALCIUM 9.8 mg/dL (8.4-10.2); CARBON DIOXIDE 28 mmol/L (22-30); CHLORIDE 91 mmol/L (98-107); CREATINE KINASE 29 U/L (55-170); CREATININE RESULT 1.16 mg/dL (0.52-1.25); GLUCOSE 316 mg/dL (75-110); POTASSIUM 4.3 mmol/L (3.6-5.0); SODIUM 135.3 mmol/L (137-145); TOTAL PROTEIN 7.7 g/dL (6.3-8.2)
[2017-06-04 07:53] LABS: CREATINE KINASE MB 0.43 ng/mL (<4.55); TROPONIN I 0.02 ng/mL
[2017-06-04] MEDS ORDERED: HYDROMORPHONE HCL INJ/PF 2 MG/ML AMPULE IM ONE (07:57)
--- NOTE | 2017-06-04 08:15 | EKG REPORT ---
SEVERITY:- ABNORMAL ECG - SINUS RHYTHM NONSPECIFIC INTRAVENTRICULAR CONDUCTION DELAY MINIMAL ST DEPRESSION, LATERAL LEADS : Confirmed by: Herbert Justice MD 04-Jun-2017 08:14:47
--- NOTE | 2017-06-04 08:23 | ER Document Report ---
ED General - General Chief Complaint: Arm Pain Stated Complaint: CHEST PAIN Time Seen by Provider: 06/04/17 07:33 Mode of Arrival: Wheelchair Information source: Patient Notes: 47-year-old male recent diagnosis of gout in the past presents with complaints of symptoms improving with the steroids but has not since worsened. Patient denies any fevers or chills notes he is a diabetic. Patient now notes that he has pain in both ankles TRAVEL OUTSIDE OF THE [place] IN LAST 30 DAYS: No - HPI Onset: Other Onset/Duration: Intermittent, Waxing and waning Quality of pain: Achy Severity: Mild Pain Level: 2 Associated symptoms: Other Exacerbated by: Walking Relieved by: Other - Steroids Similar symptoms previously: Yes Recently seen / treated by doctor: Yes - Related Data Allergies/Adverse Reactions: Iodinated Contrast- Oral and IV Dye [IV Dye, Iodine Containing] Allergy ( Verified 05/22/17 10:33) Anaphylaxis iodine Allergy (Verified 05/22/17 10:33) Shellfish * [Shellfish] Allergy (Verified 05/22/17 10:33) Past Medical History - Social History Smoking Status: Never Smoker Cigarette use (# per day): No Chew tobacco use (# tins/day): No Smoking Education Provided: No Family History: Reviewed & Not Pertinent Patient has suicidal ideation: No Patient has homicidal ideation: No - Past Medical History Cardiac Medical History: Reports: Hx Atrial Fibrillation, Hx Congestive Heart Failure, Hx Coronary Artery Disease, Hx Heart Attack - 2014, Hx Hypercholesterolemia, Hx Hypertension Pulmonary Medical History: Denies: Hx Tuberculosis Neurological Medical History: Reports: Hx Migraine Endocrine Medical History: Reports: Hx Diabetes Mellitus Type 2 Renal/ Medical History: Reports: Hx Kidney Stones. Denies: Hx Peritoneal Dialysis Musculoskeltal Medical History: Reports Hx Arthritis, Reports Hx Musculoskeletal Deformity, Reports Hx Musculoskeletal Trauma Psychiatric Medical History: Reports: Hx Depression Traumatic Medical History: Reports: Hx Fractures Past Surgical History: Reports: Hx Cardiac Catheterization - x 10-12, Hx Cardiac Surgery - pacer/defib; stents x 2, Hx Internal Defibrillator, Hx Orthopedic Surgery - L knee x2; R knee x13, Hx Pacemaker - Immunizations Immunizations up to date: Yes Hx Diphtheria, Pertussis, Tetanus Vaccination: Yes Hx Pneumococcal Vaccination: 07/26/12 Review of Systems - Review of Systems Notes: REVIEW OF SYSTEMS: CONSTITUTIONAL : Denies fever, chills, or sweats. Denies recent illness. EENT: Denies eye, ear, throat, or mouth pain or symptoms. Denies nasal or sinus congestion or discharge. Denies throat, tongue, or mouth swelling or difficulty swallowing. CARDIOVASCULAR: Denies chest pain. Denies palpitations or racing or irregular heart beat. Denies ankle edema. RESPIRATORY: Denies cough, cold, or chest congestion. Denies shortness of breath, difficulty breathing, or wheezing. GASTROINTESTINAL: Denies abdominal pain or distention. Denies nausea, vomiting , or diarrhea. Denies blood in vomitus, stools, or per rectum. Denies black, tarry stools. Denies constipation. GENITOURINARY: Denies difficulty urinating, painful urination, burning, frequency, blood in urine, or discharge. MUSCULOSKELETAL: Admits left wrist pain bilateral ankle pain SKIN: Denies rash, lesions or sores. HEMATOLOGIC : Denies easy bruising or bleeding. LYMPHATIC: Denies swollen, enlarged glands. NEUROLOGICAL: Denies confusion or altered mental status. Denies passing out or loss of consciousness. Denies dizziness or lightheadedness. Denies headache. Denies weakness or paralysis or loss of use of either side. Denies problems with gait or speech. Denies sensory loss, numbness, or tingling. Denies seizures. PSYCHIATRIC: Denies anxiety or stress. Denies depression, suicidal ideation, or homicidal ideation. ALL OTHER SYSTEMS REVIEWED AND NEGATIVE. Dictation was performed using [employer] voice recognition software PHYSICAL EXAMINATION: GENERAL: Well-appearing, well-nourished and in no acute distress. HEAD: Atraumatic, normocephalic. EYES: Pupils equal round and reactive to light, extraocular movements intact, sclera anicteric, conjunctiva are normal. ENT: Nares patent, oropharynx clear without exudates. Moist mucous membranes. NECK: Normal range of motion, supple without lymphadenopathy LUNGS: Breath sounds clear to auscultation bilaterally and equal. No wheezes rales or rhonchi. HEART: Regular rate and rhythm without murmurs ABDOMEN: Soft, nontender, nondistended abdomen. No guarding, no rebound. No masses appreciated. Musculoskeletal: Normal range of motion, no pitting or edema. No cyanosis. NEUROLOGICAL: Cranial nerves grossly intact. Normal speech, normal gait. Normal sensory, motor exams PSYCH: Normal mood, normal affect. SKIN: Mild edema noted of left wrist bilateral ankles Physical Exam - Vital signs Vitals: Temp Pulse Resp BP Pulse Ox 98.9 F 86 18 108/72 96 06/04/17 04:43 06/04/17 04:43 06/04/17 04:43 06/04/17 04:43 06/04/17 04:43 Course - Re-evaluation Re-evalutation: 06/04/17 08:21 Patient will be treated with steroids pain control otherwise is well-appearing. Lab work noted no significant abnormality. Patient has been counseled regarding his steroid use and blood sugar After performing a Medical Screening Examination, I estimate there is LOW risk for OPEN FRACTURE, COMPARTMENT SYNDROME, TENDON RUPTURE, ACUTE NEUROVASCULAR INJURY, or RETAINED FOREIGN BODY, thus I consider the discharge disposition reasonable. Also, there is no evidence or peritonitis, sepsis, or toxicity. I have reevaluated this patient multiple times and no significant life threatening changes are noted. The patient and I have discussed the diagnosis and risks, and we agree with discharging home with close follow-up with the understanding that symptoms and presentations can change. We also discussed returning to the Emergency Department immediately if new or worsening symptoms occur. We have discussed the symptoms which are most concerning (e.g., changing or worsening pain, fever, numbness, weakness, cool or painful digits) that necessitate immediate return. - Vital Signs Vital signs: Temp Pulse Resp BP Pulse Ox 98.9 F 86 18 108/72 96 06/04/17 04:43 06/04/17 04:43 06/04/17 04:43 06/04/17 04:43 06/04/17 04:43 - Laboratory Result Diagrams: 06/04/17 07:05 06/04/17 07:05 Laboratory results interpreted by me: 06/04/17 06/04/17 07:05 07:05 WBC 15.3 H Seg Neutrophils % 82.7 H Lymphocytes % 7.4 L Absolute Neutrophils 12.7 H Sodium 135.3 L Chloride 91 L Glucose 316 H Total Bilirubin 2.5 H Direct Bilirubin 0.6 H AST 12 L Creatine Kinase 29 L - Diagnostic Test Radiology reviewed: Image reviewed, Reports reviewed Discharge - Discharge Clinical Impression: Gout Qualifiers: Gout site: multiple sites Gout etiology: unspecified cause Chronicity: acute Qualified Code(s): M10.9 - Gout, unspecified Diabetes Qualifiers: Diabetes mellitus type: type 2 Diabetes mellitus complication status: without complication Diabetes mellitus prison insulin use: with meterman use Qualified Code(s): E11.9 - Type 2 diabetes mellitus without complications; Z79.4 - nursing home (current) use of insulin; Z79.4 - intermediate accountant (current) use of insulin; Z79.4 - intermediate accountant (current) use of insulin; Z79.4 - intermediate accountant (current ) use of insulin Condition: Stable Disposition: HOME, SELF-CARE Instructions: Gout ([facility]), Gout Diet ([facility]) Additional Instructions: Please call Ms. mancia today to set up appointment with rheumatology Prescriptions: Morphine Sulfate [Morphine Ir 15 Mg Tablet] 15 mg PO Q8 #14 tablet Prednisone 60 mg PO ASDIR PRN #15 tablet PRN Reason:
[2017-06-04 08:59] VITALS: BP 116/71
== END 2017-06-04 08:45 | disposition home or self-care (01) ==
LOC: ER 04:21
DX: M10.9 Gout, unspecified (principal); E11.9 Type 2 diabetes mellitus without complications; Z79.4 Long term (current) use of insulin; I25.10 Atherosclerotic heart disease of native coronary artery without angina pectoris; I25.2 Old myocardial infarction; I10 Essential (primary) hypertension; I48.91 Unspecified atrial fibrillation; Z95.810 Presence of automatic (implantable) cardiac defibrillator; Z91.013 Allergy to seafood; Z87.892 Personal history of anaphylaxis; Z91.041 Radiographic dye allergy status
CPT/HCPCS: 93005; 99284; 36415; 82553; 82550; 85025; 80053; 84484; 71010; 93010; J1170

== ENCOUNTER 2017-08-06 12:17 | Emergency (ER) | payer MEDICARE ==
--- NOTE | 2017-08-06 12:41 | ER Document Report ---
ED Medical Screen (RME) - General Chief Complaint: Chest Pain Stated Complaint: CHEST PAIN Time Seen by Provider: 08/06/17 12:36 Notes: 47-year-old male patient past history diabetes, coronary artery disease, chronic atrial fibrillation on Coumadin, has an EF of 18%, on transplant waiting list [place], last [place] in 2013. Reports onset of dizziness shortness of breath at 12:10 PM today, chest pain followed at 12:20 PM. I have greeted and performed a rapid initial assessment of this patient. A comprehensive ED assessment and evaluation of the patient, analysis of test results and completion of the medical decision making process will be conducted by additional ED providers. TRAVEL OUTSIDE OF THE [place] IN LAST 30 DAYS: No - Related Data Allergies/Adverse Reactions: Iodinated Contrast- Oral and IV Dye [IV Dye, Iodine Containing] Allergy ( Verified 08/06/17 12:37) Anaphylaxis iodine Allergy (Verified 08/06/17 12:37) Shellfish * [Shellfish] Allergy (Verified 08/06/17 12:37) Past Medical History - Social History Family history: CAD, DM, Hyperlipidemia, Hypertension, Malignancy - Past Medical History Cardiac Medical History: Reports: Hx Atrial Fibrillation, Hx Congestive Heart Failure, Hx Coronary Artery Disease, Hx Heart Attack - 2013, Hx Hypercholesterolemia, Hx Hypertension Pulmonary Medical History: Denies: Hx Tuberculosis Neurological Medical History: Reports: Hx Migraine Endocrine Medical History: Reports: Hx Diabetes Mellitus Type 2 Renal/ Medical History: Reports: Hx Kidney Stones. Denies: Hx Peritoneal Dialysis Musculoskeltal Medical History: Reports Hx Arthritis, Reports Hx Musculoskeletal Deformity, Reports Hx Musculoskeletal Trauma Psychiatric Medical History: Reports: Hx Depression Traumatic Medical History: Reports: Hx Fractures Past Surgical History: Reports: Hx Cardiac Catheterization - x -12, Hx Cardiac Surgery - pacer/defib; stents x 2, Hx Internal Defibrillator, Hx Orthopedic Surgery - L knee x2; R knee x13, Hx Pacemaker - Immunizations Immunizations up to date: Yes Hx Diphtheria, Pertussis, Tetanus Vaccination: Yes Physical Exam - Vital signs Vitals: Temp Pulse Resp BP Pulse Ox 97.9 F 86 18 109/76 95 08/06/17 12:34 08/06/17 12:34 08/06/17 12:34 08/06/17 12:34 08/06/17 12:34 Course - Vital Signs Vital signs: Temp Pulse Resp BP Pulse Ox 97.9 F 86 18 109/76 95 08/06/17 12:34 08/06/17 12:34 08/06/17 12:34 08/06/17 12:34 08/06/17 12:34
--- NOTE | 2017-08-06 12:47 | EKG REPORT ---
SEVERITY:- ABNORMAL ECG - ATRIAL FIBRILLATION, V-RATE 82-122 INCOMPLETE LEFT BUNDLE BRANCH BLOCK : Confirmed by: Caryn lBackman 06-Aug-2017 12:46:45
--- NOTE | 2017-08-06 13:16 | ER Document Report ---
ED Cardiac - General Chief Complaint: Chest Pain Stated Complaint: CHEST PAIN Time Seen by Provider: 08/06/17 12:36 TRAVEL OUTSIDE OF THE [place] IN LAST 30 DAYS: No - HPI Patient complains to provider of: Chest pain Notes: 47-year-old male patient with past history diabetes, congenital left ventricular dysfunction, coronary artery disease, chronic atrial fibrillation on Coumadin and aspirin, who has an EF of 18%, on transplant waiting list [place], last WY in 2013 with 2 prior stents since this last WY. The patient reports onset of dizziness, palpitations, dry mouth and shortness of breath beginning approximately 12:10 PM today, this was followed by burning type and aching chest pain at 12:20 PM. Patient reports the pain is across his chest above his nipple line diffusely radiating across his shoulder blades and down his left arm. This is somewhat similar with his prior cardiac pain. He does have an ICD /pacemaker. He does have some associated shortness of breath and nausea as well. No pleuritic component. He has not used nitroglycerin as reports he must have morphine with it because nitroglycerin causes a paradoxical hypertension. Normal blood pressure is low 100s systolic. He has had no medication changes since his last visit except for being on allopurinol. Denies other alleviating symptoms. His symptoms are more mild but are still persisting at this point. Patient reports some chronic chest pain but this seems more to be associated where his defibrillator/pacer is located in the left chest. - Related Data Allergies/Adverse Reactions: Iodinated Contrast- Oral and IV Dye [IV Dye, Iodine Containing] Allergy ( Verified 08/06/17 12:37) Anaphylaxis iodine Allergy (Verified 08/06/17 12:37) Shellfish * [Shellfish] Allergy (Verified 08/06/17 12:37) Past Medical History - Social History Smoking Status: Never Smoker Chew tobacco use (# tins/day): Yes Frequency of alcohol use: None Drug Abuse: None Family History: Reviewed & Not Pertinent Patient has suicidal ideation: No Patient has homicidal ideation: No - Past Medical History Cardiac Medical History: Reports: Hx Atrial Fibrillation, Hx Congestive Heart Failure, Hx Coronary Artery Disease, Hx Heart Attack - 2013, Hx Hypercholesterolemia, Hx Hypertension Pulmonary Medical History: Denies: Hx Tuberculosis Neurological Medical History: Reports: Hx Migraine Endocrine Medical History: Reports: Hx Diabetes Mellitus Type 2 Renal/ Medical History: Reports: Hx Kidney Stones. Denies: Hx Peritoneal Dialysis Musculoskeltal Medical History: Reports Hx Arthritis, Reports Hx Musculoskeletal Deformity, Reports Hx Musculoskeletal Trauma Psychiatric Medical History: Reports: Hx Depression Traumatic Medical History: Reports: Hx Fractures Past Surgical History: Reports: Hx Cardiac Catheterization - x 10-12, Hx Cardiac Surgery - pacer/defib; stents x 2, Hx Internal Defibrillator, Hx Orthopedic Surgery - L knee x2; R knee x13, Hx Pacemaker - Immunizations Immunizations up to date: Yes Hx Diphtheria, Pertussis, Tetanus Vaccination: Yes Hx Pneumococcal Vaccination: 07/26/12 Review of Systems - Review of Systems -: Yes All other systems reviewed and negative Physical Exam - Vital signs Vitals: Temp Pulse Resp BP Pulse Ox 97.9 F 86 18 109/76 95 08/06/17 12:34 08/06/17 12:34 08/06/17 12:34 08/06/17 12:34 08/06/17 12:34 Interpretation: Normal - Borderline hypotension, normal for patient though - Notes Notes: Physical Exam: GENERAL: VS as per nursing doc. Well-appearing, well-nourished and in no acute distress. HEAD: Atraumatic, normocephalic. EYES: Pupils equal round and reactive to light, extraocular movements intact, sclera anicteric, no conjunctival injection or discharge. ENT: Nares patent, oropharynx clear without exudates. Moist mucous membranes. NECK: Large, nontender neck which is supple without lymphadenopathy. No JVD LUNGS: Breath sounds clear to auscultation bilaterally and equal. No wheezes rales or rhonchi. HEART: Tachycardic, irregularly irregular without murmurs. Equal peripheral pulses. ABDOMEN: Soft, non-tender. EXTREMITIES: Normal range of motion. No calf tenderness. + edema. NEUROLOGICAL: Normal speech. Normal sensory and motor exams. PSYCH: Normal mood, normal affect. SKIN: Warm, dry, no cyanosis, no splinter hemorrhages. Cap refill < 2 sec. Course - Re-evaluation Re-evalutation: 08/06/17 18:37 Patient's pain is at baseline. He does have extensive cardiac history offered him transfer to [facility] for further cardiac evaluation. He refuses after risk discussion. He does agree to see his cathode maker and will call first thing in the morning. He will return if his pain seems to be recurring. His tachycardia from earlier which was worse prior to him coming in the hospital has actually improved overall and he is running in the 80s-90s at this point. Blood pressures remained stable in the 90s-100 systolic range which he states is normal. I did discuss with him the 2 troponin levels and the significance of this. He denies having any diarrhea or other reason to have further loss of his magnesium. He is on diuretics. He states he has been taking his magnesium oxide 800 mg daily but patient will increase to 2 pills a day for the next 3 days and get a recheck. He states he is out of his pain medication and this seems to make things somewhat worse as well. Patient understands that this very well could be an anginal equivalent as he had had similar symptoms with his WY in the past. Again he defers transfer with all risks understood but does agree for close follow-up as noted above. 08/06/17 18:[address] here with no further discomfort and maximum heart rate of 116 with activity which quickly returned to the 80s. - Vital Signs Vital signs: Temp Pulse Resp BP Pulse Ox 99.1 F 108 H 17 102/65 96 08/06/17 18:42 08/06/17 13:00 08/06/17 18:01 08/06/17 18:01 08/06/17 18:01 - Laboratory Result Diagrams: 08/06/17 12:56 08/06/17 12:56 Laboratory results interpreted by me: 08/06/17 08/06/17 12:56 12:56 WBC 11.1 H RDW 14.8 H Seg Neutrophils % 83.7 H Lymphocytes % 8.6 L Absolute Neutrophils 9.3 H Glucose 238 H Magnesium 1.0 L* Creatine Kinase 34 L - Diagnostic Test Radiology reviewed: Image reviewed, Reports reviewed - No acute process noted. - EKG Interpretation by Me Rhythm: A.Fib - Atrial fibrillation with variable rate from the 80s-120s. Incomplete left bundle branch block. Compared with June 04, 2017, EKG appears consistent with similar ST and T-wave abnormalities Discharge - Discharge Clinical Impression: Chest pain, Atrial fibrillation with rapid ventricular response Condition: Good Disposition: HOME, SELF-CARE Additional Instructions: Please make sure you contact her cathode maker first thing in the morning to arrange close follow-up. Please return if you feel you are worsening otherwise or are getting recurrence of pain that is similar/other chest pain. Prescriptions: Oxycodone HCl [Oxycodone HCl 10 MG Tablet] 1 tab PO Q6H PRN #15 tablet PRN Reason: PAIN Referrals: STEPHANIA REDMAN PA-C [Primary Care Provider] - Follow up tomorrow
[2017-08-06] MEDS ORDERED: MORPHINE SULFATE 10 MG/ML INJ IV ONE ×2 (13:21→15:28)
[2017-08-06 13:22] LABS: PROTHROMBIN TIME 13.1 SEC (11.4-15.4)
[2017-08-06 13:28] LABS: ABSOLUTE BASOPHILS # (AUTO) 0.1 10^3/uL (0.0-0.2); ABSOLUTE EOSINOPHILS # (AUTO) 0.1 10^3/uL (0.0-0.6); ABSOLUTE MONOCYTES (AUTO) 0.7 10^3/uL (0.1-1.4); ABSOLUTE NEUT (AUTO) 9.3 10^3/uL (1.7-8.2); BASOPHILS % (AUTO) 0.6 % (0-2); EOSINOPHILS % (AUTO) 0.8 % (0-6); HEMATOCRIT 41.8 % (37.9-51.0); HEMOGLOBIN 14.7 g/dL (13.5-17.0); HGB HCT DIFFERENCE 2.3; LYMPHOCYTES % (AUTO) 8.6 % (13-45); MEAN CORPUSCULAR HGB CONC 35.1 g/dL (32.0-36.0); MEAN CORPUSCULAR VOLUME 88 fl (80-97); MONOCYTES % (AUTO) 6.3 % (3-13); RED BLOOD COUNT 4.74 10^6/uL (4.35-5.55); RED CELL DISTRIBUTION WIDTH 14.8 % (11.5-14.0); SEGMENTED NEUTROPHILS % (AUTO) 83.7 % (42-78); WHITE BLOOD COUNT 11.1 10^3/uL (4.0-10.5)
[2017-08-06 13:41] LABS: ALANINE AMINOTRANSFERASE 28 U/L (21-72); ALBUMIN 4.3 g/dL (3.5-5.0); ALKALINE PHOSPHATASE 78 U/L (38-126); ANION GAP 16 (5-19); ASPARTATE AMINO TRANSFERASE 17 U/L (17-59); BILIRUBIN,DIRECT 0.3 mg/dL (0.0-0.4); BILIRUBIN,TOTAL 1.2 mg/dL (0.2-1.3); BLOOD UREA NITROGEN 18 mg/dL (7-20); CALCIUM 9.9 mg/dL (8.4-10.2); CARBON DIOXIDE 25 mmol/L (22-30); CHLORIDE 98 mmol/L (98-107); CREATINE KINASE 34 U/L (55-170); CREATININE RESULT 0.95 mg/dL (0.52-1.25); GLUCOSE 238 mg/dL (75-110); SODIUM 139.3 mmol/L (137-145); TOTAL PROTEIN 7.1 g/dL (6.3-8.2)
[2017-08-06 13:52] LABS: CREATINE KINASE MB 0.66 ng/mL (<4.55); TROPONIN I 0.019 ng/mL
[2017-08-06] MEDS: MAGNESIUM SULFATE/D5W 1 GM/100 ML RTUPB IV SCH ×2 (14:23→16:13)
--- NOTE | 2017-08-06 14:33 | RADIOLOGY REPORT (SQ) ---
EXAM DESCRIPTION: CHEST SINGLE VIEW COMPLETED DATE/TIME: 08/06/2017 2:21 pm REASON FOR STUDY: Chest pain COMPARISON: 06/04/2017 EXAM PARAMETERS: NUMBER OF VIEWS: One view. TECHNIQUE: Single frontal radiographic view of the chest acquired. RADIATION DOSE: NA LIMITATIONS: None. FINDINGS: LUNGS AND PLEURA: No opacities, masses or pneumothorax. No pleural effusion. MEDIASTINUM AND HILAR STRUCTURES: No masses. Contour normal. HEART AND VASCULAR STRUCTURES: Heart normal in size. Normal vasculature. BONES: No acute findings. HARDWARE: Pacemaker/defibrillator. OTHER: No other significant finding. IMPRESSION: NO ACUTE RADIOGRAPHIC FINDING IN THE CHEST. TECHNICAL DOCUMENTATION: JOB ID: [id number] [employer]- All Rights Reserved
[2017-08-06 18:28] VITALS: BP 102/65
== END 2017-08-06 18:55 | disposition home or self-care (01) ==
LOC: ER 12:17
DX: I48.2 Chronic atrial fibrillation (principal); Z95.810 Presence of automatic (implantable) cardiac defibrillator; Z79.01 Long term (current) use of anticoagulants; I25.10 Atherosclerotic heart disease of native coronary artery without angina pectoris; Z95.5 Presence of coronary angioplasty implant and graft; I11.0 Hypertensive heart disease with heart failure; I50.9 Heart failure, unspecified; I25.2 Old myocardial infarction; R00.0 Tachycardia, unspecified; R42 Dizziness and giddiness; R06.02 Shortness of breath; R07.9 Chest pain, unspecified; R68.2 Dry mouth, unspecified; E11.9 Type 2 diabetes mellitus without complications; R11.0 Nausea; Z91.041 Radiographic dye allergy status; Z91.013 Allergy to seafood; Z79.899 Other long term (current) drug therapy
CPT/HCPCS: 93005; 96376; 99285; 96375; 96365; 96366; 36415; 82553; 82550; 83735; 85025; 85610; 80053; 84484; 71010; 93010; J2270; J3475

== ENCOUNTER 2017-08-21 14:12 | Emergency (ER) | payer MEDICARE ==
--- NOTE | 2017-08-21 14:49 | ER Document Report ---
ED General - General Mode of Arrival: Ambulatory Information source: Patient TRAVEL OUTSIDE OF THE U.[place]. IN LAST 30 DAYS: No - HPI Patient complains to provider of: Gout and Chest pain Onset: Other - see notes above Associated symptoms: Other - see notes above <ZENIA CEJA - Last Filed: 08/21/17 19:25> <[email or web address] - Last Filed: 08/21/17 20:05> - General Chief Complaint: Palpitations Stated Complaint: HEART PALPATATION Time Seen by Provider: 08/21/17 14:30 Notes: 47 year old male with history of diabetes mellitus, [place] (2013), hypertension, and hyperlipidemia presents to the ED complaining of having a gout attack that started 3 months ago and chest pain that started today. Patient reports that he is not allowed to lift anything greater than 15 lbs with his left hand because his pacer/defib unit has shifted secondary to weight loss. Patient has been using a walker to get to the bathroom, and believes that putting stress on his left hand is exacerbating his cardiac symptoms. Patient reports dizziness, racing heart, and shortness of breath which is worsened when walking. Patient had a low magnesium level the last time he was here and is concerned about said count today. Patient is additionally complaining of severe left foot, knee, and hand pain secondary to gout (treated with Prednisone for 1 month). Patient has a pacer/defibrillator in place with his most recent heart cath in May 2017 which showed that his prior stents were still functioning. Most recent ejection fraction: 18%. Medication: Warfarin, Lantus (20 units per day), Metformin (1000mg bid), and Glimepiride. PCP: Stephania Garza Bus Van Driver: Dr. Hunter Cabrales at [place] (ZENIA CEJA) - Related Data Allergies/Adverse Reactions: Iodinated Contrast- Oral and IV Dye [IV Dye, Iodine Containing] Allergy ( Verified 08/21/17 14:47) Anaphylaxis iodine Allergy (Verified 08/21/17 14:47) Shellfish * [Shellfish] Allergy (Verified 08/21/17 14:47) Past Medical History - General Information source: Patient - Social History Smoking Status: Never Smoker Chew tobacco use (# tins/day): Yes Frequency of alcohol use: None Drug Abuse: None Family History: CAD - significant family history of CAD, Other - Father: SC and CHF; Brother: heart disease; CHF - Past Medical History Cardiac Medical History: Reports: Hx Atrial Fibrillation, Hx Congestive Heart Failure, Hx Coronary Artery Disease, Hx Heart Attack - 2014, Hx Hypercholesterolemia, Hx Hypertension Pulmonary Medical History: Denies: Hx Tuberculosis Neurological Medical History: Reports: Hx Migraine Endocrine Medical History: Reports: Hx Diabetes Mellitus Type 2 Renal/ Medical History: Reports: Hx Kidney Stones. Denies: Hx Peritoneal Dialysis Musculoskeltal Medical History: Reports Hx Arthritis, Reports Hx Musculoskeletal Deformity, Reports Hx Musculoskeletal Trauma Psychiatric Medical History: Reports: Hx Depression Traumatic Medical History: Reports: Hx Fractures Past Surgical History: Reports: Hx Cardiac Catheterization - x 10-12, Hx Cardiac Surgery - pacer/defib; stents x 2, Hx Internal Defibrillator, Hx Orthopedic Surgery - L knee x2; R knee x13, Hx Pacemaker - Immunizations Immunizations up to date: Yes Hx Diphtheria, Pertussis, Tetanus Vaccination: Yes Hx Pneumococcal Vaccination: 07/26/12 <ZENIA CEJA - Last Filed: 08/21/17 19:25> Review of Systems - Review of Systems Constitutional: No symptoms reported EENT: No symptoms reported Cardiovascular: See HPI, Chest pain, Heart racing, Dizziness Respiratory: See HPI, Short of breath Gastrointestinal: No symptoms reported Genitourinary: No symptoms reported Male Genitourinary: No symptoms reported Musculoskeletal: See HPI, Gout, Other - Left ankle, knee, and hand pain Skin: No symptoms reported Hematologic/Lymphatic: No symptoms reported Neurological/Psychological: No symptoms reported -: Yes All other systems reviewed and negative <ZENIA CEJA - Last Filed: 08/21/17 19:25> Physical Exam <ZENIA CEJA - Last Filed: 08/21/17 19:25> <DAVID HAYES - Last Filed: 08/21/17 20:05> - Vital signs Vitals: Pulse Ox 95 08/21/17 14:40 - Notes Notes: GENERAL: Alert, interacts well. No acute distress. HEAD: Normocephalic, atraumatic. EYES: Pupils equal, round, and reactive to light. Extraocular movements intact. ENT: Oral mucosa moist, tongue midline. NECK: Full range of motion. Supple. Trachea midline. LUNGS: Clear to auscultation bilaterally, no wheezes, rales, or rhonchi. No respiratory distress. HEART: Irregular tachycardia when sitting up. No murmurs, gallops, or rubs. ABDOMEN: Soft, non-tender. Non-distended. Bowel sounds present in all 4 quadrants. EXTREMITIES: Radial and dorsalis pedis pulses 2/4 bilaterally. No cyanosis. Swelling and erythema to the left foot. Most of the erythema is localized over the 2nd and 3rd toes with swelling over the medial malleolus and dorsal aspect of the left foot. Scattered areas of erythema consistent with gout. 2+ pitting edema to the left leg. Trace pitting edema to the right leg. Left knee is erythematous with no swelling. Erythema to the left elbow and 2nd and 3rd MCP joints of the left hand. Tenderness to palpation over the distal ulna. NEUROLOGICAL: Alert and oriented x3. Normal speech. PSYCH: Normal affect, normal mood. SKIN: Warm and dry. (ZENIA CEJA) Course - Laboratory Result Diagrams: 08/21/17 14:50 08/21/17 14:50 <ZENIA CEJA - Last Filed: 08/21/17 19:25> - Laboratory Result Diagrams: 08/21/17 14:50 08/21/17 14:50 <DAVID HAYES - Last Filed: 08/21/17 20:05> - Re-evaluation Re-evalutation: 08/21/17 19:58 Repeat cardiac enzymes are improved after 3 hour delta. Troponin is now 0.016. Presentation is consistent with gout, mild leukocytosis consistent with using steroids, elevated ESR and CRP again more consistent with gout than systemic infection. No evidence of osteo-myelitis at this time, magnesium was replaced IV. Patient has chronic anemia. Chest x-ray shows no acute process nor does the foot x-ray show any evidence of osteomyelitis. Review of pacemaker after being interrogated shows intermittent atrial fibrillation, patient has actually been in atrial fibrillation almost 100% of the time since it was last interrogated in May, [employer] applications sales representative states that he rarely goes above the 120s-130s, has not been shocked in several months. States the actually increased at the shocking threshold from 180-207 bpm sustained for 10- 15 seconds. [employer] sales representative is Royce Laird. Discussed with patient the importance of following up with primary care physician, making dietary changes and continuing to take medications as prescribed. Discussed that he will have to continue following up with pain management for further control of his pain from his gout. He did agree to give him 6 tablets of oxycodone to help control his pain tomorrow but he will have to follow-up with his primary care physician or pain management for further control as an outpatient. (DAVID HAYES) - Vital Signs Vital signs: Temp Pulse Resp BP Pulse Ox 19 134/97 H 95 08/21/17 19:00 08/21/17 14:42 08/21/17 19:00 - Laboratory Laboratory results interpreted by me: 08/21/17 08/21/17 08/21/17 14:50 14:50 18:09 WBC 11.0 H RBC 4.05 L Hgb 11.9 L Hct 35.5 L RDW 14.2 H Seg Neuts % (Manual) 90 H Lymphocytes % (Manual) 8 L Monocytes % (Manual) 0 L Abs Neuts (Manual) 9.9 H Abs Monocytes (Manual) 0.0 L ESR 92 H Glucose 253 H Magnesium 1.4 L AST 12 L Creatine Kinase 29 L 30 L C-Reactive Protein 72.0 H Total Protein 6.0 L Albumin 3.2 L - EKG Interpretation by Me Additional EKG results interpreted by me: 08/21/17 20:00 EKG shows A. fib RVR at a rate of 116, left axis deviation, left bundle branch block, no ST segment elevations or depressions, no significant changes from prior EKG on 08/06/2017 per my interpretation. 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 insulin use: with equipment operator intermodal yard use Qualified Code(s): E11.65 - Type 2 diabetes mellitus with hyperglycemia; Z79.4 - MCC (current) use of insulin; Z79.4 - terminal system operator (current) use of insulin ; Z79.4 - MCC (current) use of insulin; Z79.4 - terminal system operator (current) use of insulin Cardiomyopathy Qualifiers: Cardiomyopathy type: unspecified Qualified Code(s): I42.9 - Cardiomyopathy, unspecified Hypertension Qualifiers: Hypertension type: essential hypertension Qualified Code(s): I10 - Essential ( primary) hypertension Condition: Stable Disposition: HOME, SELF-CARE Additional Instructions: Gout Diet Changing your diet can decrease the uric acid in your blood. High levels of uric acid cause gouty arthritis and uric acid kidney stones. If you have gout , you should avoid meats that are high in purine. Meat products to avoid include liver, kidneys, and brains. In general, poultry is better than red meats. Seafoods to avoid include anchovies, sardines, escalona, mackerel, and scallops. Avoid ham and pierre. In addition to limiting purine-rich foods, people with gout should limit protein intake to 10-15% of total calories. Carbohydrate intake should be around 50% of total daily calories. Limit fat intake to 30% of total daily calories. Cholesterol intake should be less than 300 mg/day. Maintain or achieve a healthy body weight. Weight loss should be gradual. Rapid weight loss can actually increase uric acid levels temporarily. Alcohol, especially beer, should be avoided. Get plenty of fluids. This dilutes urinary uric acid, and helps prevent uric acid kidney stones. Drink eight to twelve cups of water daily. Prescriptions: Oxycodone HCl 5 mg PO Q6HP PRN #8 capsule PRN Reason: Forms: Elevated Blood Pressure Referrals: STEPHANIA GARZA PA-C [Primary Care Provider] - Follow up in 1 week Scribe Attestation: 08/21/17 20:05 I personally performed the services described in the documentation, reviewed and edited the documentation which was dictated to the scribe in my presence, and it accurately records my words and actions. (DAVID HAYES) Scribe Documentation - Scribe Written by Scribe:: Jw Peguero, 08/21/2017 [id number] acting as scribe for :: Yareli <ZENIA CEJA - Last Filed: 08/21/17 19:25>
[2017-08-21] MEDS ORDERED: NITROGLYCERIN 0.4 MG/TAB 25 TAB/BOTTLE SL PRN (14:52)
[2017-08-21] MEDS ORDERED: ASPIRIN 81 MG TABLET, CHEWABLE PO ONE (14:52)
[2017-08-21] MEDS ORDERED: MORPHINE SULFATE 10 MG/ML INJ IV ONE ×2 (14:52→20:05)
[2017-08-21 15:07] LABS: HEMATOCRIT 35.5 % (37.9-51.0); HEMOGLOBIN 11.9 g/dL (13.5-17.0); MEAN CORPUSCULAR HEMOGLOBIN 29.4 pg (27.0-33.4); MEAN CORPUSCULAR HGB CONC 33.6 g/dL (32.0-36.0); MEAN CORPUSCULAR VOLUME 88 fl (80-97); PLATELET COUNT 306 10^3/uL (150-450); RED BLOOD COUNT 4.05 10^6/uL (4.35-5.55); RED CELL DISTRIBUTION WIDTH 14.2 % (11.5-14.0)
[2017-08-21 15:19] LABS: ALANINE AMINOTRANSFERASE 23 U/L (21-72); ALBUMIN 3.2 g/dL (3.5-5.0); ALKALINE PHOSPHATASE 70 U/L (38-126); ANION GAP 10 (5-19); ASPARTATE AMINO TRANSFERASE 12 U/L (17-59); BILIRUBIN,DIRECT 0.2 mg/dL (0.0-0.4); BILIRUBIN,TOTAL 0.6 mg/dL (0.2-1.3); BLOOD UREA NITROGEN 14 mg/dL (7-20); CALCIUM 9.2 mg/dL (8.4-10.2); CARBON DIOXIDE 27 mmol/L (22-30); CHLORIDE 102 mmol/L (98-107); CREATINE KINASE 29 U/L (55-170); GLUCOSE 253 mg/dL (75-110); MAGNESIUM 1.4 mg/dL (1.6-2.3); POTASSIUM 4.7 mmol/L (3.6-5.0); SODIUM 138.7 mmol/L (137-145)
[2017-08-21 15:27] LABS: CREATINE KINASE MB 0.41 ng/mL (<4.55); TROPONIN I 0.02 ng/mL
[2017-08-21 15:33] LABS: ABSOLUTE LYMPHOCYTES# (MANUAL) 0.9 10^3/uL (0.5-4.7); ABSOLUTE NEUTROPHILS# (MANUAL) 9.9 10^3/uL (1.7-8.2); BASOPHILS % (MANUAL) 1 % (0-2); EOSINOPHILS % (MANUAL) 1 % (0-6); LYMPHOCYTES % (MANUAL) 8 % (13-45); MONOCYTES % (MANUAL) 0 % (3-13); SEGMENTED NEUTROPHILS % (MAN) 90 % (42-78); TOTAL CELLS COUNTED 100
[2017-08-21 15:37] LABS: ANISOCYTOSIS SLIGHT; PLATELET CLUMPS PRESENT; PLATELET COMMENT ADEQUATE; PLATELET GIANT PRESENT; PLATELET LARGE PRESENT; POLYCHROMASIA SLIGHT
[2017-08-21 15:45] LABS: ERYTHROCYTE SEDIMENTATION RATE 92 mm/hr (0-15)
--- NOTE | 2017-08-21 15:46 | RADIOLOGY REPORT (SQ) ---
EXAM DESCRIPTION: CHEST SINGLE VIEW COMPLETED DATE/TIME: 08/21/2017 3:31 pm REASON FOR STUDY: chest pain, palpitations COMPARISON: 08/06/2017. EXAM PARAMETERS: NUMBER OF VIEWS: One view. TECHNIQUE: Single frontal radiographic view of the chest acquired. RADIATION DOSE: NA LIMITATIONS: None. FINDINGS: LUNGS AND PLEURA: No opacities, masses or pneumothorax. No pleural effusion. MEDIASTINUM AND HILAR STRUCTURES: No masses. Contour normal. HEART AND VASCULAR STRUCTURES: Heart upper limits of normal in size. Normal vasculature. BONES: No acute findings. HARDWARE: Defibrillator. OTHER: No other significant finding. IMPRESSION: NO ACUTE RADIOGRAPHIC FINDING IN THE CHEST. TECHNICAL DOCUMENTATION: JOB ID: [id number] [employer]- All Rights Reserved
--- NOTE | 2017-08-21 15:48 | RADIOLOGY REPORT (SQ) ---
EXAM DESCRIPTION: FOOT LEFT COMPLETE COMPLETED DATE/TIME: 08/21/2017 3:31 pm REASON FOR STUDY: redness, swelling, gout vs osteo L toes / COMPARISON: 05/13/2010. NUMBER OF VIEWS: Three views. TECHNIQUE: AP, lateral and oblique radiographic images acquired of the left foot. LIMITATIONS: None. FINDINGS: MINERALIZATION: Normal. BONES: No acute fracture or dislocation. Degenerative changes in the midfoot with osteophytes. Prom inent heel spur. Erosive changes at the base of the 1st metatarsal and at the head of the 1st metata rsal. No worrisome bone lesions. JOINTS: No effusions. SOFT TISSUES: No soft tissue swelling. No foreign body. OTHER: No other significant finding. IMPRESSION: CHRONIC DEGENERATIVE CHANGES DESCRIBED. NO ACUTE FINDINGS. TECHNICAL DOCUMENTATION: JOB ID: [id number] [employer]- All Rights Reserved
[2017-08-21] MEDS ORDERED: MAGNESIUM SULFATE/D5W 1 GM/100 ML RTUPB IV ONE (16:53)
[2017-08-21 19:49] LABS: CREATINE KINASE MB 0.38 ng/mL (<4.55); TROPONIN I 0.016 ng/mL
[2017-08-21 20:34] VITALS: BP 133/99
== END 2017-08-21 20:34 | disposition home or self-care (01) ==
LOC: ER 14:12
DX: M10.9 Gout, unspecified (principal); I48.0 Paroxysmal atrial fibrillation; R07.9 Chest pain, unspecified; E11.65 Type 2 diabetes mellitus with hyperglycemia; Z79.4 Long term (current) use of insulin; I42.9 Cardiomyopathy, unspecified; I10 Essential (primary) hypertension; Z91.013 Allergy to seafood; I25.2 Old myocardial infarction; Z95.810 Presence of automatic (implantable) cardiac defibrillator; Z79.02 Long term (current) use of antithrombotics/antiplatelets
CPT/HCPCS: 99285; 96372; 96365; 36415; 87040; 82553; 82550; 83735; 85025; 85652; 86140; 80053; 84484; 82330; 71010; 73630; J2270; J3475

== ENCOUNTER 2017-08-26 16:17 | Emergency (ER) | payer MEDICARE ==
[2017-08-26] MEDS ORDERED: PREDNISONE 20 MG TABLET PO ONE (16:46)
[2017-08-26] MEDS ORDERED: OXYCODONE-ACETAMINOPHEN 5-325 MG TABLET PO ONE (16:46)
--- NOTE | 2017-08-26 16:54 | ER Document Report ---
ED Medical Screen (RME) - General Chief Complaint: Foot Pain Stated Complaint: GOUT Time Seen by Provider: 08/26/17 16:38 Notes: This 47-year-old male patient comes emergency room complaining of severe pain in his left foot, ankle, wrist, elbow. He has had gout for quite some time. He had his allopurinol increased from 100 mg a day to 100 mg twice a day only 3 days ago. He would likely benefit from being on 300 mg to 600 mg daily if there are no contraindications. He reports being on prednisone many times over the last few months. He does not take colchicine or Colcrys. He is on heart transplant list and does have diabetes. He is on an angiotensin receptor blocking drug. A warning on allopurinol is increased hypersensitivity in patients taking MICHAEL inhibitors. I do not know if that is why he has been on such a low dose of allopurinol despite such severe symptoms. He should have seen a helicopter technician a long time ago for this and coordinate with his cardiac doctors about medications he can and cannot take adequate doses. By history this seems to be managed by his primary care provider who is either a nurse practitioner or PA. I have greeted and performed a rapid initial assessment of this patient. A comprehensive ED assessment and evaluation of the patient, analysis of test results and completion of the medical decision making process will be conducted by additional ED providers. TRAVEL OUTSIDE OF THE [place] IN LAST 30 DAYS: No - Related Data Allergies/Adverse Reactions: Iodinated Contrast- Oral and IV Dye [IV Dye, Iodine Containing] Allergy ( Verified 08/21/17 14:47) Anaphylaxis iodine Allergy (Verified 08/21/17 14:47) Shellfish * [Shellfish] Allergy (Verified 08/21/17 14:47) Past Medical History - Social History Chew tobacco use (# tins/day): Yes Frequency of alcohol use: None Drug Abuse: None Family history: CAD, DM, Hyperlipidemia, Hypertension, Malignancy - Past Medical History Cardiac Medical History: Reports: Hx Atrial Fibrillation, Hx Congestive Heart Failure, Hx Coronary Artery Disease, Hx Heart Attack - 2014, Hx Hypercholesterolemia, Hx Hypertension Pulmonary Medical History: Denies: Hx Tuberculosis Neurological Medical History: Reports: Hx Migraine Endocrine Medical History: Reports: Hx Diabetes Mellitus Type 2 Renal/ Medical History: Reports: Hx Kidney Stones. Denies: Hx Peritoneal Dialysis Musculoskeltal Medical History: Reports Hx Arthritis, Reports Hx Musculoskeletal Deformity, Reports Hx Musculoskeletal Trauma Psychiatric Medical History: Reports: Hx Depression Traumatic Medical History: Reports: Hx Fractures Past Surgical History: Reports: Hx Cardiac Catheterization - x 10-12, Hx Cardiac Surgery - pacer/defib; stents x 2, Hx Internal Defibrillator, Hx Orthopedic Surgery - L knee x2; R knee x13, Hx Pacemaker - Immunizations Immunizations up to date: Yes Hx Diphtheria, Pertussis, Tetanus Vaccination: Yes Physical Exam - Vital signs Vitals: Temp Pulse Resp BP Pulse Ox 97.7 F 108 H 16 132/91 H 93 08/26/17 16:25 08/26/17 16:25 08/26/17 16:25 08/26/17 16:25 08/26/17 16:25 Course - Vital Signs Vital signs: Temp Pulse Resp BP Pulse Ox 97.7 F 108 H 16 132/91 H 93 08/26/17 16:25 08/26/17 16:25 08/26/17 16:25 08/26/17 16:25 08/26/17 16:25
[2017-08-26 17:14] LABS: ABSOLUTE BASOPHILS # (AUTO) 0.1 10^3/uL (0.0-0.2); ABSOLUTE LYMPHOCYTES (AUTO) 1.8 10^3/uL (0.5-4.7); ABSOLUTE MONOCYTES (AUTO) 0.9 10^3/uL (0.1-1.4); ABSOLUTE NEUT (AUTO) 10.8 10^3/uL (1.7-8.2); BASOPHILS % (AUTO) 0.9 % (0-2); EOSINOPHILS % (AUTO) 0.3 % (0-6); HEMATOCRIT 40.6 % (37.9-51.0); HEMOGLOBIN 13.7 g/dL (13.5-17.0); LYMPHOCYTES % (AUTO) 13.3 % (13-45); MEAN CORPUSCULAR HEMOGLOBIN 29.2 pg (27.0-33.4); MEAN CORPUSCULAR HGB CONC 33.7 g/dL (32.0-36.0); MEAN CORPUSCULAR VOLUME 87 fl (80-97); MONOCYTES % (AUTO) 6.4 % (3-13); PLATELET COUNT 401 10^3/uL (150-450); RED BLOOD COUNT 4.69 10^6/uL (4.35-5.55); RED CELL DISTRIBUTION WIDTH 14.7 % (11.5-14.0); SEGMENTED NEUTROPHILS % (AUTO) 79.1 % (42-78); TOTAL CELLS COUNTED % (AUTO) 100 %; WHITE BLOOD COUNT 13.6 10^3/uL (4.0-10.5)
[2017-08-26 17:30] LABS: ALANINE AMINOTRANSFERASE 25 U/L (21-72); ALBUMIN 3.8 g/dL (3.5-5.0); ALKALINE PHOSPHATASE 72 U/L (38-126); ANION GAP 12 (5-19); ASPARTATE AMINO TRANSFERASE 12 U/L (17-59); BILIRUBIN,DIRECT 0.2 mg/dL (0.0-0.4); BILIRUBIN,TOTAL 1.5 mg/dL (0.2-1.3); BLOOD UREA NITROGEN 14 mg/dL (7-20); CALCIUM 10.3 mg/dL (8.4-10.2); CARBON DIOXIDE 33 mmol/L (22-30); CHLORIDE 90 mmol/L (98-107); GLUCOSE 196 mg/dL (75-110); POTASSIUM 4.1 mmol/L (3.6-5.0); TOTAL PROTEIN 6.7 g/dL (6.3-8.2); URIC ACID 5.9 mg/dL (3.5-8.5)
[2017-08-26 17:54] LABS: ERYTHROCYTE SEDIMENTATION RATE 72 mm/hr (0-15)
[2017-08-26] MEDS ORDERED: HYDROMORPHONE HCL INJ/PF 2 MG/ML AMPULE IM ONE (19:44)
[2017-08-26] MEDS ORDERED: PROMETHAZINE HCL 25 MG TABLET PO ONE (19:44)
[2017-08-26] MEDS ORDERED: HYDROCODONE/ACETAMINOPHEN 5-325 MG (6 TAB/ER DISP) PO PRN (19:44)
[2017-08-26 19:45] VITALS: BP 138/92
--- NOTE | 2017-08-26 19:47 | ER Document Report ---
ED General - General Chief Complaint: Foot Pain Stated Complaint: GOUT Time Seen by Provider: 08/26/17 16:38 Notes: Patient is a 47-year-old male with a past medical history of cardiomyopathy, ejection fraction 18%, chronic polyarthritic gout, who presents with progressively worsening pain in his left elbow, left wrist, left ankle, left knee and left foot. Patient reports that he has had this pain for the past 3-4 months, has been treated repeatedly with steroids without resolution. He states he saw his primary care doctor regarding this concern several days ago was started on a renewed course of prednisone but has not yet resulted in improvement of his pain. He describes the pain as being worse than the left ankle versus all the other joints that are involved. He states the pain is so severe he is unable to walk on the ankle. Nothing improves or worsens his pain. He is scheduled to follow-up with a assurance auditor at [facility] in the coming days for this problem. He does continue to take high doses of Lasix and metolazone for his congestive heart failure. TRAVEL OUTSIDE OF THE [place] IN LAST 30 DAYS: No - Related Data Allergies/Adverse Reactions: Iodinated Contrast- Oral and IV Dye [IV Dye, Iodine Containing] Allergy ( Verified 08/21/17 14:47) Anaphylaxis iodine Allergy (Verified 08/21/17 14:47) Shellfish * [Shellfish] Allergy (Verified 08/21/17 14:47) Past Medical History - General Information source: Patient - Social History Smoking Status: Never Smoker Chew tobacco use (# tins/day): Yes Frequency of alcohol use: None Drug Abuse: None Lives with: Spouse/Significant other Family History: CAD - significant family history of CAD, Other - Father: [place] and CHF; Brother: heart disease; CHF Patient has suicidal ideation: No Patient has homicidal ideation: No - Past Medical History Cardiac Medical History: Reports: Hx Atrial Fibrillation, Hx Congestive Heart Failure, Hx Coronary Artery Disease, Hx Heart Attack - 2014, Hx Hypercholesterolemia, Hx Hypertension Pulmonary Medical History: Denies: Hx Tuberculosis Neurological Medical History: Reports: Hx Migraine Endocrine Medical History: Reports: Hx Diabetes Mellitus Type 2 Renal/ Medical History: Reports: Hx Kidney Stones. Denies: Hx Peritoneal Dialysis Musculoskeltal Medical History: Reports Hx Arthritis, Reports Hx Musculoskeletal Deformity, Reports Hx Musculoskeletal Trauma Psychiatric Medical History: Reports: Hx Depression Traumatic Medical History: Reports: Hx Fractures Past Surgical History: Reports: Hx Cardiac Catheterization - x 10-12, Hx Cardiac Surgery - pacer/defib; stents x 2, Hx Internal Defibrillator, Hx Orthopedic Surgery - L knee x2; R knee x13, Hx Pacemaker - Immunizations Immunizations up to date: Yes Hx Diphtheria, Pertussis, Tetanus Vaccination: Yes Hx Pneumococcal Vaccination: 07/26/12 Review of Systems - Review of Systems Notes: Constitutional: Negative for fever. HENT: Negative for sore throat. Eyes: Negative for visual changes. Cardiovascular: Negative for chest pain. Respiratory: Negative for shortness of breath. Gastrointestinal: Negative for abdominal pain, vomiting or diarrhea. Genitourinary: Negative for dysuria. Musculoskeletal: Positive for joint pain in multiple locations Skin: Negative for rash. Neurological: Negative for headaches, weakness or numbness. 10 point ROS negative except as marked above and in HPI. Physical Exam - Vital signs Vitals: Temp Pulse Resp BP Pulse Ox 97.7 F 108 H 16 132/91 H 93 08/26/17 16:25 08/26/17 16:25 08/26/17 16:25 08/26/17 16:25 08/26/17 16:25 Interpretation: Tachycardic Notes: PHYSICAL EXAMINATION: GENERAL: Chronically ill in appearance but in no acute distress HEAD: Atraumatic, normocephalic. EYES: Pupils equal round and reactive to light, extraocular movements intact, sclera anicteric, conjunctiva are normal. ENT: nares patent, oropharynx clear without exudates. Moderately dry mucous membranes. NECK: Normal range of motion, supple without lymphadenopathy LUNGS: Breath sounds clear to auscultation bilaterally and equal. No wheezes rales or rhonchi. HEART: Regular rate and rhythm without murmurs ABDOMEN: Soft, nontender, normoactive bowel sounds. No guarding, no rebound. No masses appreciated. EXTREMITIES: Normal range of motion, including in the affected joints, warm, erythematous swelling to the left ankle, the dorsum of the left foot, left elbow and left knee. NEUROLOGICAL: No focal neurological deficits. Moves all extremities spontaneously and on command. PSYCH: Normal mood, normal affect. SKIN: Warm, Dry, normal turgor, no rashes or lesions noted. Course - Re-evaluation Re-evalutation: 08/26/17 19:44 Patient presents with multiple joint sites with gout. Patient has obvious swelling and pain to the left ankle and foot as well as the left elbow. His symptoms been ongoing for 3 months and are overall unchanged with the exception of the left ankle which he states is gotten more painful in the last several days. He is ready on oral steroids as an outpatient and this is not improving his condition. He is not a candidate for colchicine or NSAIDs given his history of CHF with an EF of 18% as well as a component of chronic kidney disease. He has discontinued allopurinol appropriately given his ongoing flare and I have instructed him to restart this medication was the flare has resolved. However I think the most urgent issue is that his lead manufacturing engineer and assurance auditor need to discuss his diuretic regimen which is almost certainly exacerbating and propagating his gout. I will provide analgesia for a short outpatient course but I have explained to the patient and his significant other at length of the bedside the need for long-term care by specialists given his complex medical history. I do not suspect an acute septic joint given labs, history, and duration of symptoms. He has no complaints of suggest an acute CHF exacerbation alternative life-threatening pathology today. At this time will discharge with return precautions and follow-up recommendations. Verbal discharge instructions given a the bedside and opportunity for questions given. Medication warnings reviewed. Patient is in agreement with this plan and has verbalized understanding of return precautions and the need for primary care follow-up in the next 24-72 hours. - Vital Signs Vital signs: Temp Pulse Resp BP Pulse Ox 99.0 F 103 H 19 138/92 H 94 08/26/17 19:43 08/26/17 19:43 08/26/17 19:43 08/26/17 19:43 08/26/17 19:43 - Laboratory Result Diagrams: 08/26/17 17:00 08/26/17 17:00 Laboratory results interpreted by me: 08/26/17 08/26/17 17:00 17:00 WBC 13.6 H RDW 14.7 H Seg Neutrophils % 79.1 H Absolute Neutrophils 10.8 H ESR 72 H Sodium 135.0 L Chloride 90 L Carbon Dioxide 33 H Glucose 196 H Calcium 10.3 H Total Bilirubin 1.5 H AST 12 L Discharge - Discharge Clinical Impression: Polyarticular gout Cardiomyopathy Qualifiers: Cardiomyopathy type: unspecified Qualified Code(s): I42.9 - Cardiomyopathy, unspecified Condition: Stable Disposition: HOME, SELF-CARE Additional Instructions: Please take oral morphine tablets that have been prescribed 1-2 tablets every 4 hours as needed for severe pain. Please follow-up with your lead manufacturing engineer as well as a assurance auditor for definitive management of your diuretic regiment in the context of having severe gout. Return if you develop fevers greater than 100.4F, develop persistent vomiting, pass out, or have any other symptoms that are worrisome to you. Prescriptions: Morphine Sulfate [Morphine Ir 15 mg Tablet] 15 - 30 mg PO Q4HP PRN #20 tablet PRN Reason: Promethazine HCl [Phenergan 25 mg Tablet] 1 - 2 tab PO Q6H PRN #20 tablet PRN Reason:
== END 2017-08-26 20:12 | disposition home or self-care (01) ==
LOC: ER 16:17
DX: M1A.9XX0 Chronic gout, unspecified, without tophus (tophi) (principal); I42.9 Cardiomyopathy, unspecified; I10 Essential (primary) hypertension; I25.10 Atherosclerotic heart disease of native coronary artery without angina pectoris; I25.2 Old myocardial infarction; E11.9 Type 2 diabetes mellitus without complications; Z95.810 Presence of automatic (implantable) cardiac defibrillator
CPT/HCPCS: 99283; 96372; 36415; 84550; 85025; 85652; 80053; A9270 ×4; J1170; J7512

== ENCOUNTER 2017-12-12 13:53 | Inpatient (IN) | payer MEDICARE ==
[2017-12-12] MEDS ORDERED: NORMAL SALINE 1000 ML 1,000 ML IV ONE ×2 (14:09→16:32)
--- NOTE | 2017-12-12 14:09 | ER Document Report ---
ED General - General Mode of Arrival: Medic Information source: Patient TRAVEL OUTSIDE OF THE [place] IN LAST 30 DAYS: No <JOSEPH BAZZI - Last Filed: 12/12/17 20:10> <FAIZA COUCH - Last Filed: 12/12/17 22:48> - General Chief Complaint: Dizziness Stated Complaint: DIZZINESS Time Seen by Provider: 12/12/17 13:58 Notes: Patient is a 47 year old male with a history of diabetes, cardiomyopathy and gout presents to the emergency department from doctors office complaining of dizziness. Patient states he was sitting at his doctors office when he began to feel light headed and dizzy and was sent to the emergency department. Patient states his diuretics has doubled in dosage due to him recently gaining weight in fluid. Patient also complains of chest pain and nausea. Patient denies increased urination, bloody stool or dyspnea. Patient is currently on Coumadin. He denies taking his diuretic medication or having urinated today. (JOSEPH BAZZI) 47-year-old male patient with chronic A. fib, pacemaker defibrillator, on Coumadin, with diabetes, cardiomyopathy, hyperlipidemia was sitting in his truck waiting on a relative in her doctor's office. He became dizzy lightheaded. The doctor came out to check his blood pressure and is quite low so 911 was called. He was seen here recently for gout flareup and put on prednisone. He states that caused him to retain quite a bit of fluid and he has an appointment with his gun fitter soon and did not want to go there with the edema. He doubled his diuretic dosing to try to remove the fluid over the past week. He admits that he has not drunk much fluids today although he has eaten. He admits that he has not urinated today. He does admit that his mouth does feel quite dry. EMS gave about 800 mL's of normal saline prior to arrival, his blood pressure still remains quite low with systolic of 67. He does seem to tolerate this quite well lying down with his head only slightly elevated. He does report some chest pain, however this is reproducible and is actually around his xiphoid and epigastric region. (FAIZA COUCH) - Related Data Allergies/Adverse Reactions: Iodinated Contrast- Oral and IV Dye [IV Dye, Iodine Containing] Allergy ( Verified 08/21/17 14:47) Anaphylaxis iodine Allergy (Verified 08/21/17 14:47) Shellfish * [Shellfish] Allergy (Verified 08/21/17 14:47) Past Medical History - General Information source: Patient - Social History Smoking Status: Unknown if Ever Smoked Family History: CAD - significant family history of CAD, Other - Father: [place] and CHF; Brother: heart disease; CHF - Past Medical History Cardiac Medical History: Reports: Hx Atrial Fibrillation, Hx Congestive Heart Failure, Hx Coronary Artery Disease, Hx Heart Attack - 2013, Hx Hypercholesterolemia, Hx Hypertension Neurological Medical History: Reports: Hx Migraine Endocrine Medical History: Reports: Hx Diabetes Mellitus Type 2 Renal/ Medical History: Reports: Hx Kidney Stones Musculoskeltal Medical History: Reports Hx Arthritis, Reports Hx Musculoskeletal Deformity, Reports Hx Musculoskeletal Trauma Psychiatric Medical History: Reports: Hx Depression Traumatic Medical History: Reports: Hx Fractures Past Surgical History: Reports: Hx Cardiac Catheterization - x -12, Hx Cardiac Surgery - pacer/defib; stents x 2, Hx Internal Defibrillator, Hx Orthopedic Surgery - L knee x2; R knee x13, Hx Pacemaker - Immunizations Immunizations up to date: Yes Hx Diphtheria, Pertussis, Tetanus Vaccination: Yes Hx Pneumococcal Vaccination: 07/26/12 <JOSEPH BAZZI - Last Filed: 12/12/17 20:10> Review of Systems - Review of Systems Constitutional: See HPI, Weight gain EENT: No symptoms reported Cardiovascular: See HPI, Chest pain, Dizziness, Lightheaded Respiratory: No symptoms reported Gastrointestinal: See HPI, Nausea Genitourinary: No symptoms reported Male Genitourinary: No symptoms reported Musculoskeletal: No symptoms reported Skin: No symptoms reported Hematologic/Lymphatic: No symptoms reported Neurological/Psychological: No symptoms reported -: Yes All other systems reviewed and negative <JOSEPH BAZZI - Last Filed: 12/12/17 20:10> Physical Exam - General General appearance: Appears well, Alert In distress: None - HEENT Head: Normocephalic Eyes: Normal Conjunctiva: Other - pale Pupils: PERRL Mucous membranes: Dry Neck: Normal - Respiratory Respiratory status: No respiratory distress Chest status: Nontender Breath sounds: Normal Chest palpation: Normal - Cardiovascular Rhythm: Regular Heart sounds: Normal auscultation Murmur: No Friction rub: No Gallop: None auscultated - Abdominal Inspection: Morbidly Obese Distension: No distension Bowel sounds: Normal Tenderness: Tender - Epigastrically, xiphoid process - Extremities General upper extremity: Normal inspection, Normal strength General lower extremity: Normal inspection, Normal strength - Neurological Neuro grossly intact: Yes Cognition: Normal Orientation: AAOx4 [place] Coma Scale Eye Opening: Spontaneous [place] Coma Scale Verbal: Oriented [place] Coma Scale Motor: Obeys Commands [place] Coma Scale Total: 15 Speech: Normal Sensory: Normal - Psychological Associated symptoms: Normal affect, Normal mood - Skin Skin Temperature: Warm Skin Moisture: Dry Skin Color: Pale <JOSEPH BAZZI - Last Filed: 12/12/17 20:10> <FAIZA COUCH - Last Filed: 12/12/17 22:48> - Vital signs Vitals: Pulse Ox 95 12/12/17 14:03 - Cardiovascular Notes: weak pulses (JOSEPH BAZZI) Course - Laboratory Result Diagrams: 12/12/17 14:06 12/12/17 14:06 <JOSEPH BAZZI - Last Filed: 12/12/17 20:10> - Laboratory Result Diagrams: 12/12/17 14:06 12/12/17 14:06 - Diagnostic Test Radiology reviewed: Image reviewed, Reports reviewed - Chest x-ray does not show acute process specifically there is no heart failure. - EKG Interpretation by Me EKG shows normal: [place], Intervals, ST-T Waves. abnormal: QRS Complexes Rate: Normal - 73 Rhythm: A.Fib [place]/QRS: LBBB When compared to previous EKG there are: No significant change - Consults Dr. Nieves Time consulted: 17:25 Consulted provider: will come to ER <FAIZA COUCH - Last Filed: 12/12/17 22:48> - Re-evaluation Re-evalutation: 12/12/17 15:01 Patient was complaining of nausea, Zofran was ordered. When the nurse went to give it he stated Zofran does not work for him only Phenergan. We informed him we do not use Phenergan IV any longer so he will be given an oral dose. (FAIZA COUCH) - Vital Signs Vital signs: Temp Pulse Resp BP Pulse Ox 97.2 F 18 92/41 L 97 12/12/17 14:15 12/12/17 22:21 12/12/17 22:21 12/12/17 22:21 - Laboratory Laboratory results interpreted by me: 12/12/17 12/12/17 12/12/17 14:06 14:06 14:06 RBC 4.30 L Hgb 12.7 L Hct 37.2 L RDW 17.0 H BUN 24 H Creatinine 1.37 H Est GFR (Non-Af Amer) 56 L Glucose 309 H Calcium 8.3 L Creatine Kinase 33 L NT-Pro-B Natriuret Pep 1450 H Total Protein 5.7 L Albumin 3.3 L Urine Protein Urine Glucose (UA) Urine Urobilinogen 12/12/17 17:35 RBC Hgb Hct RDW BUN Creatinine Est GFR (Non-Af Amer) Glucose Calcium Creatine Kinase NT-Pro-B Natriuret Pep Total Protein Albumin Urine Protein 100 H Urine Glucose (UA) 50 H Urine Urobilinogen 4.0 H Critical Care Note - Critical Care Note Total time excluding time spent on procedures (mins): 40 <FAIZA COUCH - Last Filed: 12/12/17 22:48> Discharge <JOSEPH BAZZI - Last Filed: 12/12/17 20:10> - Discharge Admitting Provider: Hospitalist Unit Admitted: ICU <FAIZA COUCH - Last Filed: 12/12/17 22:48> - Discharge Clinical Impression: Dehydration, Inadequate anticoagulation, Chronic atrial fibrillation Hypotension Qualifiers: Hypotension type: unspecified hypotension type Qualified Code(s): I95.9 - Hypotension, unspecified Cardiomyopathy Qualifiers: Cardiomyopathy type: unspecified Qualified Code(s): I42.9 - Cardiomyopathy, unspecified Condition: Fair Disposition: ADMITTED INPATIENT Scribe Attestation: 12/12/17 22:48 I personally performed the services described in the documentation, reviewed and edited the documentation which was dictated to the scribe in my presence, and it accurately records my words and actions. (FAIZA COUCH) Scribe Documentation - Scribe Written by Jw:: Jw Coto, 12/12/2017 14:20 acting as scribe for :: Demetrius <JOSEPH BAZZI - Last Filed: 12/12/17 20:10>
[2017-12-12 14:17] LABS: ABSOLUTE BASOPHILS # (AUTO) 0.1 10^3/uL (0.0-0.2); ABSOLUTE EOSINOPHILS # (AUTO) 0.1 10^3/uL (0.0-0.6); ABSOLUTE LYMPHOCYTES (AUTO) 1.7 10^3/uL (0.5-4.7); ABSOLUTE MONOCYTES (AUTO) 0.8 10^3/uL (0.1-1.4); ABSOLUTE NEUT (AUTO) 6.9 10^3/uL (1.7-8.2); BASOPHILS % (AUTO) 0.9 % (0-2); EOSINOPHILS % (AUTO) 1.2 % (0-6); HEMATOCRIT 37.2 % (37.9-51.0); HEMOGLOBIN 12.7 g/dL (13.5-17.0); LYMPHOCYTES % (AUTO) 17.4 % (13-45); MEAN CORPUSCULAR HEMOGLOBIN 29.5 pg (27.0-33.4); MEAN CORPUSCULAR HGB CONC 34.1 g/dL (32.0-36.0); MEAN CORPUSCULAR VOLUME 87 fl (80-97); PLATELET COUNT 182 10^3/uL (150-450); SEGMENTED NEUTROPHILS % (AUTO) 72.5 % (42-78); TOTAL CELLS COUNTED % (AUTO) 100 %; WHITE BLOOD COUNT 9.6 10^3/uL (4.0-10.5)
[2017-12-12 14:24] LABS: INTERNATIONAL RATION (INR) 1.06; PROTHROMBIN TIME 14.3 SEC (11.4-15.4)
[2017-12-12 14:37] LABS: ALANINE AMINOTRANSFERASE 30 U/L (21-72); ALBUMIN 3.3 g/dL (3.5-5.0); ALKALINE PHOSPHATASE 51 U/L (38-126); ANION GAP 13 (5-19); ASPARTATE AMINO TRANSFERASE 20 U/L (17-59); BILIRUBIN,DIRECT 0.3 mg/dL (0.0-0.4); BILIRUBIN,TOTAL 0.8 mg/dL (0.2-1.3); BLOOD UREA NITROGEN 24 mg/dL (7-20); CALCIUM 8.3 mg/dL (8.4-10.2); CARBON DIOXIDE 26 mmol/L (22-30); CHLORIDE 101 mmol/L (98-107); CREATINE KINASE 33 U/L (55-170); GLUCOSE 309 mg/dL (75-110); POTASSIUM 3.6 mmol/L (3.6-5.0); SODIUM 139.5 mmol/L (137-145); TOTAL PROTEIN 5.7 g/dL (6.3-8.2)
[2017-12-12] MEDS ORDERED: ONDANSETRON HCL INJ/PF 4 MG/2 ML SDV IV ONE (14:52)
[2017-12-12] MEDS ORDERED: PROMETHAZINE HCL 25 MG TABLET PO ONE (15:01)
--- NOTE | 2017-12-12 15:18 | RADIOLOGY REPORT (SQ) ---
EXAM DESCRIPTION: CHEST SINGLE VIEW COMPLETED DATE/TIME: 12/12/2017 2:57 pm REASON FOR STUDY: hypotension, dizzy COMPARISON: 08/21/2017 EXAM PARAMETERS: NUMBER OF VIEWS: One view. TECHNIQUE: Single frontal radiographic view of the chest acquired. RADIATION DOSE: NA LIMITATIONS: None. FINDINGS: LUNGS AND PLEURA: No opacities, masses or pneumothorax. No pleural effusion. MEDIASTINUM AND HILAR STRUCTURES: No masses. Contour normal. HEART AND VASCULAR STRUCTURES: Stable heart size. BONES: No acute findings. HARDWARE: Defibrillator. OTHER: No other significant finding. IMPRESSION: NO ACUTE RADIOGRAPHIC FINDING IN THE CHEST. TECHNICAL DOCUMENTATION: JOB ID: [id number] [employer]- All Rights Reserved Reading location - IP/workstation name: [email or web address]
[2017-12-12] MEDS ORDERED: NORMAL SALINE 1000 ML 1,000 ML IV PRN (17:55)
[2017-12-12 18:01] LABS: APPEARANCE,URINE SLIGHTLY-CLOUDY; BILIRUBIN,URINE NEGATIVE (NEGATIVE); GLUCOSE, URINE 50 mg/dL (NEGATIVE); KETONES,URINE NEGATIVE (NEGATIVE); LEUKOCYTE ESTERASE,URINE NEGATIVE (NEGATIVE); NITRITE,URINE NEGATIVE (NEGATIVE); PROTEIN,URINE 100 mg/dL (NEGATIVE); URINE SPECIFIC GRAVITY 1.019
[2017-12-12 18:04] LABS: COLOR,URINE YELLOW
--- NOTE | 2017-12-12 18:21 | PDOC H&P ---
History of Present Illness Admission Date/PCP: 12/12/17 17:51 STEPHANIA REDMAN PA-C Patient complains of: dizziness , lightheadedness History of Present Illness: KEAGAN RODARTE is a 47 year old male with a known history of cardiomyopathy with an EF of 17%, chronic atrial fibrillation , Chronic anticoagulation on Coumadin hyperlipidemia,, diabetes mellitus, status post pacer defibrillator who was in the doctor's office when he felt dizzy lightheaded Patient had doubled his diuretics over the past week as he was extremely fluid overloaded. Upon evaluation in the ED he was found hypotensive with a blood pressure systolic of 70-80 He was given 2000 mL of fluid bolus and hospitalist was called for admission Patient did not have any complaints of chest pain in the emergency room Initial workup showed an EKG with A. fib left bundle branch block at the rate of 70-80/min; initial troponins are in the intermediate range Creatinine is increased to 1.3 -it was 1 in August 2017- Chest x-ray does not show any fluid overload Past Medical History Cardiac Medical History: Reports: Atrial Fibrillation, Congestive Heart Failure , Coronary Artery Disease, Myocardial Infarction - 2013, Hyperlipidema, Hypertension Pulmonary Medical History: Denies: Tuberculosis Neurological Medical History: Reports: Migraine Endocrine Medical History: Reports: Diabetes Mellitus Type 2 Musculoskeltal Medical History: Reports: Arthritis Psychiatric Medical History: Reports: Depression Past Surgical History Past Surgical History: Reports: Cardiac Catheterization - x 10-12, Internal Defibrillator, Orthopedic Surgery - L knee x2; R knee x13, Pacemaker Social History Information Source: Patient Smoking Status: Never Smoker Frequency of Alcohol Use: Rare Hx Recreational Drug Use: No Drugs: None Hx Prescription Drug Abuse: No - Advance Directive Resuscitation Status: Full Code Surrogate healthcare decision maker:: His Lili Family History Family History: CAD - significant family history of CAD, Other - Father: MT and CHF; Brother: heart disease; CHF Parental Family History Reviewed: Yes Children Family History Reviewed: Yes Sibling(s) Family History Reviewed.: Yes Medication/Allergy Home Medications: Alprazolam 1 mg PO DAILYP PRN 12/12/17 Aspirin [Aspirin 81 mg Chewable Tablet] 81 mg PO DAILY 12/12/17 Atorvastatin Calcium [Lipitor 40 mg Tablet] 40 mg PO QHS 12/12/17 Carvedilol [Coreg 25 mg Tablet] 25 mg PO Q12 12/12/17 Diazepam [Valium] 10 mg PO BIDP PRN 12/12/17 Furosemide [Lasix 80 mg Tablet] 80 mg PO QAM 12/12/17 Glimepiride [Amaryl 4 mg Tablet] 4 mg PO BID 12/12/17 Lisinopril 20 mg PO DAILY 12/12/17 Magnesium Oxide [Mag-Ox 400 mg Tablet] 400 mg PO DAILY 12/12/17 Metformin HCl [Glucophage] 1,000 mg PO BIDACBS 12/12/17 Metolazone [Zaroxolyn 2.5 Mg Tablet] 2.5 mg PO TUWETH@1000 12/12/17 Morphine Sulfate [Morphine Ir 15 Mg Tablet] 15 mg PO BIDP PRN 12/12/17 Sertraline HCl [Zoloft 50 mg Tablet] 50 mg PO DAILY 12/12/17 Spironolactone [Aldactone 25 mg Tablet] 25 mg PO DAILY 12/12/17 Warfarin Sodium [Coumadin 7.5 mg Tablet] 7.5 mg PO QHS 12/12/17 Allergies/Adverse Reactions: Iodinated Contrast- Oral and IV Dye [IV Dye, Iodine Containing] Allergy ( Verified 08/21/17 14:47) Anaphylaxis iodine Allergy (Verified 08/21/17 14:47) Shellfish * [Shellfish] Allergy (Verified 08/21/17 14:47) Review of Systems Constitutional: PRESENT: weakness. ABSENT: chills, fever(s), headache(s), weight gain, weight loss Cardiovascular: ABSENT: chest pain, dyspnea on exertion, edema, orthropnea, palpitations Respiratory: ABSENT: cough, hemoptysis Gastrointestinal: ABSENT: abdominal pain, constipation, diarrhea, hematemesis, hematochezia, nausea, vomiting Genitourinary: ABSENT: dysuria, hematuria Musculoskeletal: ABSENT: joint swelling Neurological: PRESENT: dizziness, weakness, other - Lightheadedness. ABSENT: abnormal gait, abnormal speech, confusion, focal weakness, syncope Psychiatric: ABSENT: anxiety, depression, homidical ideation, suicidal ideation Endocrine: ABSENT: cold intolerance, heat intolerance, polydipsia, polyuria Hematologic/Lymphatic: ABSENT: easy bleeding, easy bruising Physical Exam Vital Signs: Temp Pulse Resp BP Pulse Ox 97.2 F 16 80/41 L 97 12/12/17 14:15 12/12/17 17:41 12/12/17 17:41 12/12/17 17:20 General appearance: PRESENT: no acute distress, cooperative, morbidly obese Head exam: PRESENT: atraumatic, normocephalic Eye exam: PRESENT: conjunctiva pink, EOMI, PERRLA. ABSENT: scleral icterus Neck exam: ABSENT: carotid bruit, JVD, lymphadenopathy, thyromegaly Respiratory exam: PRESENT: clear to auscultation meena. ABSENT: rales, rhonchi, wheezes Cardiovascular exam: PRESENT: irregular rhythm. ABSENT: diastolic murmur, rubs , systolic murmur Pulses: PRESENT: normal dorsalis pedis pul GI/Abdominal exam: PRESENT: normal bowel sounds, soft. ABSENT: distended, guarding, mass, organolmegaly, rebound, tenderness Rectal exam: PRESENT: deferred Extremities exam: PRESENT: full ROM. ABSENT: calf tenderness, clubbing, pedal edema Musculoskeletal exam: ABSENT: ambulatory, deformity, dislocation, full ROM, normal inspection, tenderness, other Neurological exam: PRESENT: alert, awake, oriented to person, oriented to place , oriented to time, oriented to situation, CN II-XII grossly intact. ABSENT: motor sensory deficit Psychiatric exam: PRESENT: appropriate affect, normal mood Skin exam: PRESENT: dry, intact, warm. ABSENT: cyanosis, rash Results Laboratory Results: 12/12/17 12/12/17 12/12/17 14:06 14:06 14:06 WBC 9.6 Hgb 12.7 L Hct 37.2 L Plt Count 182 Sodium 139.5 Potassium 3.6 BUN 24 H Creatinine 1.37 H Glucose 309 H Troponin I 0.072 NT-Pro-B Natriuret Pep 12/12/17 14:06 WBC Hgb Hct Plt Count Sodium Potassium BUN Creatinine Glucose Troponin I NT-Pro-B Natriuret Pep 1450 H EKG Comments: [AFIB] . ATRIAL FIBRILLATION, V-RATE 64-83 [ABCS] . ABERRANT COMPLEX, POSSIBLY SUPRAVENTRICULAR [LBBB] . LEFT BUNDLE BRANCH BLOCK Impressions: Chest X-Ray 12/12/17 14:09 IMPRESSION: NO ACUTE RADIOGRAPHIC FINDING IN THE CHEST. Assessment & Plan - Diagnosis (1) Cardiomyopathy Qualifiers: Cardiomyopathy type: unspecified Qualified Code(s): I42.9 - Cardiomyopathy , unspecified Is this a current diagnosis for this admission?: Yes (2) Chronic atrial fibrillation Is this a current diagnosis for this admission?: Yes Plan: Rate controlled (3) Dehydration Is this a current diagnosis for this admission?: Yes Plan: Continue hydration We will infuse 75 mL/h normal saline Discussed case with Dr. Blackman cardiology Will initiate midodrine p.o. 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 Hunter Cabrales at [facility] (5) Inadequate anticoagulation Is this a current diagnosis for this admission?: Yes Plan: Patient states he is on Coumadin INR is not therapeutic Review of prior labs in the past year INR is never in therapeutic range We will resume prior dose of Coumadin after medications have been confirmed Lovenox prophylaxis - Time Time Spent: 50 to 70 Minutes - Inpatient Certification Based on my medical assessment, after consideration of the patient's comorbidities, presenting symptoms, or acuity I expect that the services needed warrant INPATIENT care.: Yes I certify that my determination is in accordance with my understanding of Medicare's requirements for reasonable and necessary INPATIENT services [42 CFR 412.3e].: Yes Medical Necessity: Need For IV Fluids, Need For Continuous Telemetry Monitoring , Risk of Complication if Not Cared For in Hospital
[2017-12-12] MEDS ORDERED: MIDODRINE HCL 5 MG TABLET PO ONE (18:30)
[2017-12-12] MEDS ORDERED: ENOXAPARIN SODIUM INJ 40 MG/0.4 ML DISP.SYRIN SUBCUT ONE (19:00)
[2017-12-12] MEDS: APIXABAN 5 MG TABLET PO SCH (21:26)
[2017-12-12] MEDS: FAMOTIDINE INJ/PF 20 MG/2 ML SDV IV SCH (21:27)
[2017-12-12] MEDS ORDERED: DEXTROSE 40% GEL 15 GM TUBE PO PRN (22:45)
[2017-12-12] MEDS ORDERED: DEXTROSE 50%-WATER SYRINGE 25 GM/50 ML DOSE IV PRN (22:45)
[2017-12-12] MEDS ORDERED: DEXTROSE 50%-WATER SYRINGE 12.5 GM/25 ML DOSE IV PRN (22:45)
[2017-12-12] MEDS ORDERED: GLUCAGON,HUMAN RECOMB 1 MG INJ IM PRN (22:45)
[2017-12-12] MEDS ORDERED: DEXTROSE 40% GEL 15 GM TUBE X 2 PO PRN (22:45)
[2017-12-12] MEDS: PROMETHAZINE HCL INJ 25 MG/1 ML VIAL IV PRN (23:03)
[2017-12-12] MEDS: INSULIN LISPRO 100 UNIT/ML 3 ML VIAL SUBCUT PRN (23:04)
--- NOTE | 2017-12-12 23:20 | EKG REPORT ---
SEVERITY:- ABNORMAL ECG - ATRIAL FIBRILLATION, V-RATE 64-83 ABERRANT COMPLEX, POSSIBLY SUPRAVENTRICULAR LEFT BUNDLE BRANCH BLOCK V PACED BEATS : Confirmed by: Caryn Blackman 12-Dec-2017 23:19:52
[2017-12-13 03:47] LABS: HEMATOCRIT 38.5 % (37.9-51.0); HEMOGLOBIN 12.8 g/dL (13.5-17.0); MEAN CORPUSCULAR HEMOGLOBIN 28.9 pg (27.0-33.4); MEAN CORPUSCULAR HGB CONC 33.1 g/dL (32.0-36.0); MEAN CORPUSCULAR VOLUME 87 fl (80-97); PLATELET COUNT 190 10^3/uL (150-450); RED BLOOD COUNT 4.41 10^6/uL (4.35-5.55); WHITE BLOOD COUNT 9.3 10^3/uL (4.0-10.5)
[2017-12-13 04:03] LABS: BLOOD UREA NITROGEN 30 mg/dL (7-20); CALCIUM 8.2 mg/dL (8.4-10.2); GLUCOSE 163 mg/dL (75-110)
[2017-12-13 04:04] LABS: ALANINE AMINOTRANSFERASE 31 U/L (21-72); ALBUMIN 3.2 g/dL (3.5-5.0); ALKALINE PHOSPHATASE 52 U/L (38-126); ANION GAP 11 (5-19); ASPARTATE AMINO TRANSFERASE 18 U/L (17-59); BILIRUBIN,DIRECT 0.4 mg/dL (0.0-0.4); BILIRUBIN,TOTAL 0.5 mg/dL (0.2-1.3); CARBON DIOXIDE 25 mmol/L (22-30); CHLORIDE 107 mmol/L (98-107); POTASSIUM 3.8 mmol/L (3.6-5.0); SODIUM 142.8 mmol/L (137-145); TOTAL PROTEIN 5.9 g/dL (6.3-8.2)
[2017-12-13 04:17] LABS: TROPONIN I 0.058 ng/mL
[2017-12-13 04:21] LABS: FREE T4 (FREE THYROXINE) 0.99 ng/dL (0.78-2.19)
[2017-12-13 04:35] LABS: THYROID STIMULATING HORMONE 0.38 uIU/mL (0.47-4.68)
[2017-12-13] MEDS ORDERED: MIDODRINE HCL 5 MG TABLET PO SCH (07:00)
[2017-12-13] MEDS ORDERED: MIDODRINE HCL 5 MG TABLET PO ONE (08:30)
[2017-12-13] MEDS ORDERED: DIAZEPAM 5 MG TABLET PO PRN ×2 (09:41→09:51)
[2017-12-13] MEDS ORDERED: ENOXAPARIN SODIUM INJ 40 MG/0.4 ML DISP.SYRIN SUBCUT SCH (10:00)
[2017-12-13] MEDS ORDERED: (PENDING PHARMACY ID) (Lisinopril [Lisinopril] 20 MG) PO SCH (10:00)
[2017-12-13] MEDS ORDERED: LISINOPRIL 10 MG TABLET PO SCH ×2 (10:00)
[2017-12-13] MEDS ORDERED: CARVEDILOL 12.5 MG TABLET PO SCH ×2 (10:00)
--- NOTE | 2017-12-13 10:27 | EKG REPORT ---
SEVERITY:- ABNORMAL ECG - ATRIAL FIBRILLATION LEFT BUNDLE BRANCH BLOCK : Confirmed by: Caryn Blackman 13-Dec-2017 10:26:40
[2017-12-13] MEDS: MAGNESIUM OXIDE 400 MG TABLET PO SCH (10:33)
[2017-12-13] MEDS: APIXABAN 5 MG TABLET PO SCH ×2 (10:34→21:04)
[2017-12-13] MEDS: ASPIRIN 81 MG TABLET, CHEWABLE PO SCH (10:34)
[2017-12-13] MEDS: GLIMEPIRIDE 4 MG TABLET PO SCH ×2 (10:35→17:19)
[2017-12-13] MEDS: FAMOTIDINE INJ/PF 20 MG/2 ML SDV IV SCH ×2 (10:35→21:03)
[2017-12-13] MEDS: SERTRALINE HCL 50 MG TABLET PO SCH (10:36)
[2017-12-13] MEDS: MIDODRINE HCL 5 MG TABLET PO SCH ×2 (10:37→14:37)
[2017-12-13] MEDS: INSULIN LISPRO 100 UNIT/ML 3 ML VIAL SUBCUT PRN ×2 (10:57→17:19)
[2017-12-13] MEDS: PROMETHAZINE HCL INJ 25 MG/1 ML VIAL IV PRN ×2 (10:59→20:05)
--- NOTE | 2017-12-13 13:14 | PDOC PROGRESS REPORT ---
Subjective Progress Note for:: 12/13/17 Subjective:: Patient was seen yesterday in the late afternoon. He was noted to be hypotensive. He was felt to be volume depleted as patient had increased his diuretic intake. Overnight patient blood pressure has improved. He was also placed on Midodrin. However he was noted to have more frequent ventricular paced beats and possibly slow V. tach. Patient now also complaining of some intermittent chest pain. These are short lasting only about 1-2 minutes. Patient does have known history of coronary artery disease. Patient has a history of severely depressed LVEF. Patient also has history of 2 stents in his heart. I did review his chest x-ray and also pacemaker card. It seems patient just has right atrial and right ventricular lead and does not have the LV lead. Reason For Visit: HYPOTENSION, CARDIOMYOPATHY Physical Exam Vital Signs: Temp Pulse Resp BP Pulse Ox 97.9 F 87 17 99/72 L 93 12/13/17 12:00 12/13/17 12:00 12/13/17 12:00 12/13/17 12:00 12/13/17 12:00 Intake & Output 12/12/17 12/13/17 12/14/17 06:59 06:59 06:59 Intake Total 100 Balance 100 Exam: GENERAL: well-nourished and in no acute distress. Alert and oriented x3 HEAD: Atraumatic, normocephalic. EYES: Pupils equal round and reactive to light, extraocular movements intact, sclera anicteric, conjunctiva are normal. ENT: TMs normal, nares patent, oropharynx clear without exudates. Moist mucous membranes. No oral ulcerations or bleeding gums noted NECK: supple without lymphadenopathy. Trachea is central. No cervical or axillary lymphadenopathy noted. Carotids are 2+, JVD WNL LUNGS: Respiration seems nonlabored, no significant accessory muscle action noted. Breath sounds clear to auscultation bilaterally and equal noted. No wheezes rales or rhonchi noted. No significant dullness noted on percussion. CHEST: Palpation of the chest wall shows no significant chest wall tenderness. 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 ABDOMEN: Soft, no significant tenderness appreciated, normoactive bowel sounds. No guarding, no rebound. No rigidity noted . No masses appreciated. EXTREMITIES: Pedal pulses are 1-2+, no calf tenderness noted. No clubbing or cyanosis. 1+ pedal edema noted NEUROLOGICAL: Focused neurological exam showed no significant neurologic deficit. Normal speech, no focal weakness appreciated. PSYCH: Normal mood, normal affect. Judgment and insight within normal limits. SKIN: No significant ecchymosis, skin is noted to be warm. MUSCULOSKELETAL EXAM: No significant acute joint swelling noted. Results Laboratory Results: 12/13/17 03:39 12/13/17 03:39 12/13/17 12/13/17 12/13/17 03:39 03:39 03:39 WBC 9.3 RBC 4.41 Hgb 12.8 L Hct 38.5 MCV 87 MCH 28.9 MCHC 33.1 RDW 17.0 H Plt Count 190 Sodium 142.8 Potassium 3.8 Chloride 107 Carbon Dioxide 25 Anion Gap 11 BUN 30 H Creatinine 1.07 Est GFR ( Amer) > 60 Est GFR (Non-Af Amer) > 60 Glucose 163 H Calcium 8.2 L Magnesium Total Bilirubin 0.5 AST 18 ALT 31 Alkaline Phosphatase 52 Total Protein 5.9 L Albumin 3.2 L TSH 0.38 L Free T4 0.99 12/13/17 03:39 WBC RBC Hgb Hct MCV MCH MCHC RDW Plt Count Sodium Potassium Chloride Carbon Dioxide Anion Gap BUN Creatinine Est GFR ( Amer) Est GFR (Non-Af Amer) Glucose Calcium Magnesium 1.7 Total Bilirubin AST ALT Alkaline Phosphatase Total Protein Albumin TSH Free T4 12/12/17 12/13/17 12/13/17 21:20 03:39 09:37 Troponin I 0.060 0.058 0.043 NT-Pro-B Natriuret Pep 708 H EKG Comments: Telemetry strip shows atrial fibrillation with controlled ventricular response Impressions: Chest X-Ray 12/12/17 14:09 IMPRESSION: NO ACUTE RADIOGRAPHIC FINDING IN THE CHEST. Assessment & Plan - Diagnosis (1) Hypotension Qualifiers: Hypotension type: unspecified hypotension type Qualified Code(s): I95.9 - Hypotension, unspecified Is this a current diagnosis for this admission?: Yes (2) Chest pain Qualifiers: Chest pain type: unspecified Qualified Code(s): R07.9 - Chest pain, unspecified Is this a current diagnosis for this admission?: Yes (3) Cardiomyopathy Qualifiers: Cardiomyopathy type: unspecified Qualified Code(s): I42.9 - Cardiomyopathy , unspecified Is this a current diagnosis for this admission?: Yes (4) Chronic atrial fibrillation Is this a current diagnosis for this admission?: Yes (5) Inadequate anticoagulation Is this a current diagnosis for this admission?: Yes (6) Diabetes Qualifiers: Diabetes mellitus type: type 2 Diabetes mellitus predatory animal exterminator insulin use: with mcc use Diabetes mellitus complication status: with hyperglycemia Qualified Code(s): E11.65 - Type 2 diabetes mellitus with hyperglycemia; Z79.4 - longterm (current) use of insulin; Z79.4 - terminal supervisor (current) use of insulin; Z79.4 - terminal supervisor (current) use of insulin; Z79.4 - terminal supervisor (current ) use of insulin Is this a current diagnosis for this admission?: Yes (7) Sleep apnea syndrome Qualifiers: Sleep apnea type: unspecified type Qualified Code(s): G47.30 - Sleep apnea , unspecified Is this a current diagnosis for this admission?: Yes (8) Status post internal cardiac defibrillator procedure Is this a current diagnosis for this admission?: Yes (9) CHF (congestive heart failure) Qualifiers: Qualified Code(s): I50.9 - Heart failure, unspecified Is this a current diagnosis for this admission?: No (10) Coronary artery disease Qualifiers: Coronary Disease-Associated Artery/Lesion type: [place] artery [place] vs. transplanted heart: [place] heart Associated angina: angina presence unspecified Qualified Code(s): I25.10 - Atherosclerotic heart disease of [place] coronary artery without angina pectoris Is this a current diagnosis for this admission?: Yes - Notes Notes: Hypotension: This is resolved. Patient was on IV fluids. IV fluids to be discontinued. Recommend restarting patient's held medication. Continue with her current therapy. Chest pain: Patient complains of chest pain. Patient has severely depressed LVEF and also has coronary stents. Feel that patient will benefit from heart catheterization. Recommend tertiary care transfer Cardiomyopathy: Patient has severe dilated cardiomyopathy. Currently being followed at [facility]. Patient has initiated a call himself to get himself transferred. Patient will benefit from upgrade of his defibrillator to a biventricular defibrillator. It seems that patient does seem to place a whole lot., And seems to base with a white left bundle branch block pattern. Sleep apnea syndrome: Discussed that he will benefit from treatment of underlying sleep apnea syndrome. Currently claims claustrophobia but he would benefit from desensitization. Coronary artery disease: Please see note under chest pain. CHF: Currently compensated. May need to resume his baseline diuretic therapy on discharge. Inadequate anticoagulation: Because of CHF, anticoagulation with Coumadin would be difficult and possibly inadequate therefore will recommend newer oral anticoagulant. Patient will benefit from Eliquis therapy. Obesity: Patient will benefit from weight loss. Status post defibrillator placement: Patient will benefit from upgrade to biventricular defibrillator. This was repaired advised to the patient. - Time Time with patient: Greater than 35 minutes - CODE STATUS was discussed, patient remains full code. Surrogate decision-maker patient's /girlfriend. Multiple medical problems were addressed. More than 50% of the time spent coordinating care, discussing management plans with involved caregivers. Management plans discussed with involved personnels. Medical decision making was of moderate to high complexity, patient's has multiple comorbidities. Medications reviewed and adjusted accordingly: Yes
--- NOTE | 2017-12-13 15:28 | PDOC PROGRESS REPORT ---
Subjective Progress Note for:: 12/13/17 Subjective:: Patient states she is feeling better overall less dizzy lightheaded He still has some mild discomfort in the chest that he grades at 1/10 Patient has been hydrated through the night was normal saline at 75 mL/h Is diuretics were held He was prescribed midodrine for his blood pressure His blood pressure today is stable at 95/70 Patient did rule out with troponins in the intermediate range Nursing staff from ER reported episodes of V. tach nonsustained during which she was asymptomatic Tracings reviewed in IMCU are consistent with paced beats Reason For Visit: HYPOTENSION, CARDIOMYOPATHY Physical Exam Vital Signs: Temp Pulse Resp BP Pulse Ox 97.9 F 87 17 99/72 L 93 12/13/17 12:00 12/13/17 12:00 12/13/17 12:00 12/13/17 12:00 12/13/17 12:00 Intake & Output 12/12/17 12/13/17 12/14/17 00:59 00:59 00:59 Intake Total 100 Balance 100 Constitutional: PRESENT: weakness. ABSENT: chills, fever(s), headache(s), weight gain, weight loss Cardiovascular: ABSENT: chest pain, dyspnea on exertion, edema, orthropnea, palpitations Respiratory: ABSENT: cough, hemoptysis Gastrointestinal: ABSENT: abdominal pain, constipation, diarrhea, hematemesis, hematochezia, nausea, vomiting Genitourinary: ABSENT: dysuria, hematuria Musculoskeletal: ABSENT: joint swelling Neurological: PRESENT: dizziness, weakness, other - Lightheadedness. ABSENT: abnormal gait, abnormal speech, confusion, focal weakness, syncope Psychiatric: ABSENT: anxiety, depression, homidical ideation, suicidal ideation Endocrine: ABSENT: cold intolerance, heat intolerance, polydipsia, polyuria Hematologic/Lymphatic: ABSENT: easy bleeding, easy bruising Results Laboratory Results: 12/13/17 03:39 12/13/17 03:39 12/13/17 12/13/17 12/13/17 03:39 03:39 03:39 WBC 9.3 RBC 4.41 Hgb 12.8 L Hct 38.5 MCV 87 MCH 28.9 MCHC 33.1 RDW 17.0 H Plt Count 190 Sodium 142.8 Potassium 3.8 Chloride 107 Carbon Dioxide 25 Anion Gap 11 BUN 30 H Creatinine 1.07 Est GFR ( Amer) > 60 Est GFR (Non-Af Amer) > 60 Glucose 163 H Calcium 8.2 L Magnesium Total Bilirubin 0.5 AST 18 ALT 31 Alkaline Phosphatase 52 Total Protein 5.9 L Albumin 3.2 L TSH 0.38 L Free T4 0.99 12/13/17 03:39 WBC RBC Hgb Hct MCV MCH MCHC RDW Plt Count Sodium Potassium Chloride Carbon Dioxide Anion Gap BUN Creatinine Est GFR ( Amer) Est GFR (Non-Af Amer) Glucose Calcium Magnesium 1.7 Total Bilirubin AST ALT Alkaline Phosphatase Total Protein Albumin TSH Free T4 12/12/17 12/13/17 12/13/17 21:20 03:39 09:37 Troponin I 0.060 0.058 0.043 NT-Pro-B Natriuret Pep 708 H Impressions: Chest X-Ray 12/12/17 14:09 IMPRESSION: NO ACUTE RADIOGRAPHIC FINDING IN THE CHEST. Assessment & Plan - Diagnosis (1) Cardiomyopathy Qualifiers: Cardiomyopathy type: unspecified Qualified Code(s): I42.9 - Cardiomyopathy , unspecified Is this a current diagnosis for this admission?: Yes (2) Chronic atrial fibrillation Is this a current diagnosis for this admission?: Yes Plan: Rate controlled (3) Dehydration Is this a current diagnosis for this admission?: Yes (4) Hypotension Qualifiers: Hypotension type: unspecified hypotension type Qualified Code(s): I95.9 - Hypotension, unspecified Is this a current diagnosis for this admission?: Yes Plan: Hypotension likely secondary to fluid loss and hypovolemia Patient responded overnight to fluid resuscitation and midodrine We will discontinue IV fluids at this time (5) Inadequate anticoagulation Is this a current diagnosis for this admission?: Yes Plan: Patient was not adequately anticoagulated on Coumadin we initiated Eliquis 5 mg p.o. twice daily (6) Chest pain Qualifiers: Chest pain type: unspecified Qualified Code(s): R07.9 - Chest pain, unspecified Is this a current diagnosis for this admission?: Yes Plan: Patient has chest pain still discomfort at 09/04 We discussed the case at length with Dr. Soliz from [facility] covering for Dr. Hunter Soliz states that patient had a recent cardiac catheterization with no significant coronary artery disease The troponins are in intermediate range Patient is unlikely to have an acute coronary syndrome Dr. Soliz feels that patient had likely cardiac ischemia secondary to the hypotension He recommends that we treat patient symptomatically and does not feel that the patient the patient needs to be transferred to [place] at this time. Dr. Soliz also suggest that Coreg be decreased to 6.25 twice daily DC midodrine DC IV fluids DC lisinopril DC Aldactone DC metolazone Resume Lasix tomorrow - Time Time Spent with patient: We will keep patient overnight The patient to be discharged tomorrow if still stable Patient will be followed Saturday or Saturday at the cardiology clinic at [facility] They will call the patient for an appointment Time Spent with patient: 25-34 minutes
[2017-12-13] MEDS ORDERED: METFORMIN HCL 500 MG TABLET PO SCH ×2 (16:00)
--- NOTE | 2017-12-13 19:00 | XCELERA REPORT ---
[address] [address] Transthoracic Echocardiogram Report Name: KEAGAN RODARTE Age: 47 yrs Gender: Male : 1970 Patient Status: Inpatient Patient Location: [address] [place] [address] Study Date: 12/13/2017 09:16 AM Height: 75 in Weight: 381 lb BSA: 2.9 m2 Procedure: A complete two-dimensional transthoracic echocardiogram was performed (2D, M-mode, spectral and color flow Doppler). The study was technically difficult with many images being suboptimal in quality. Reason For Study: Cardiomyopathy, hypertension Ordering Physician: CARYN CAVAZOS Performed By: Luanne Gilbert Interpretation Summary LV EF is 20% Left ventricular systolic function is severely reduced. Doppler measurements suggest reversible restrictive left ventricular relaxation, which is associated with grade III/IV or moderate diastolic dysfunction The left ventricle is moderately dilated. There is borderline concentric left ventricular hypertrophy. There is severe global hypokinesis of the left ventricle. The right ventricular systolic function is normal. The left atrial size is normal. The right atrium is normal. There is a trace to mild amount of mitral regurgitation There is no mitral valve stenosis. No aortic regurgitation is present. There is no aortic valve stenosis There is a trace or physiologic amount of tricuspid regurgitation Tricuspid regurgitation jet envelope not well defined to measure RV systolic pressure accurately. The aortic root is not well visualized. The inferior vena cava appeared normal and decreased < 50% with respiration (RAP 10-15 mmHg) There is no pericardial effusion. MMode/2D Measurements & Calculations RVDd: 3.4 cm LVIDd: 7.5 cm FS: 12.3 % EPSS: 2.3 cm IVSd: 0.95 cm LVIDs: 6.6 cm EDV(Teich): 301.3 ml LVPWd: 0.90 cm ESV(Teich): 224.0 ml EF(Teich): 25.7 % Ao root diam: 2.9 cm Ao root area: 6.5 cm2 LA dimension: 5.8 cm Doppler Measurements & Calculations MV E max morenita: MV P1/2t max morenita: Ao V2 max: LV V1 max P.8 cm/sec 90.3 cm/sec 117.6 cm/sec 4.1 mmHg MV A max morenita: MV P1/2t: 28.7 msec Ao max PG: LV V1 max: 31.6 cm/sec MVA(P1/2t): 7.7 cm2 5.5 mmHg 101.7 cm/sec MV E/A: 2.9 MV dec slope: 921.2 cm/sec2 MV dec time: 0.12 sec PA V2 max: TR max morenita: 75.0 cm/sec 264.7 cm/sec PA max PG: TR max P.0 mmHg 2.3 mmHg Left Ventricle The left ventricle is moderately dilated. There is borderline concentric left ventricular hypertrophy. Left ventricular systolic function is severely reduced. LV EF is 20%. Doppler measurements suggest reversible restrictive left ventricular relaxation, which is associated with grade III/IV or moderate diastolic dysfunction. There is severe global hypokinesis of the left ventricle. Right Ventricle The right ventricle is grossly normal size. There is normal right ventricular wall thickness. The right ventricular systolic function is normal. Atria The right atrium is normal. The left atrial size is normal. Interarterial septum not well visualized and not well dopplered. Cannot comment on ASD/PFO presence. Mitral Valve The mitral valve is grossly normal. There is no mitral valve stenosis. There is a trace to mild amount of mitral regurgitation. Aortic Valve The aortic valve is not well visualized secondary to technical limitations. There is no aortic valve stenosis. No aortic regurgitation is present. Tricuspid Valve The tricuspid valve is not well visualized secondary to technical limitations. There is no tricuspid stenosis. There is a trace or physiologic amount of tricuspid regurgitation. Tricuspid regurgitation jet envelope not well defined to measure RV systolic pressure accurately. Pulmonic Valve The pulmonic valve is not well visualized. Great Vessels The aortic root is not well visualized. The inferior vena cava appeared normal and decreased < 50% with respiration (RAP 10-15 mmHg). Effusions There is no pericardial effusion. : CARYN CAVAZOS > Caryn Cavazos
--- NOTE | 2017-12-13 19:59 | PDOC CONSULTATION ---
Consultation Consult Date: 12/12/17 Attending physician:: RADHA JACKSON Consult reason:: Hypotension and cardiomyopathy History of Present Illness Admission Date/PCP: 12/12/17 17:51 STEPHANIA REDMAN PA-C Patient complains of: Low blood pressure. History of Present Illness: KEAGAN RODARTE is a 47 year old male with a known history of cardiomyopathy with an EF of 17%, chronic atrial fibrillation , Chronic anticoagulation on Coumadin hyperlipidemia,, diabetes mellitus, status post pacer defibrillator who was in the doctor's office when he felt dizzy lightheaded Patient had doubled his diuretics over the past week as he was extremely fluid overloaded. Upon evaluation in the ED he was found hypotensive with a blood pressure systolic of 70-80 He was given 2000 mL of fluid bolus and hospitalist was called for admission Patient did not have any complaints of chest pain in the emergency room Initial workup showed an EKG with A. fib left bundle branch block at the rate of 70-80/min; initial troponins are in the intermediate range Creatinine is increased to 1.3 -it was 1 in August 2017- Chest x-ray does not show any fluid overload. This history was reviewed and confirmed. Patient on repeated questioning denied any chest pain. He does have shortness of breath but currently at baseline. He has intermittent pedal edema. Patient denied any nausea vomiting. Patient denied any internal bleeding. Patient denied any history of blood clots in the legs are in the lungs. Patient claims that he is regularly followed at [facility] cardiology department with Dr. Cabrales. In fact he has a follow-up appointment early next week. Patient denied any recent defibrillator shocks but does claim that he has noted defibrillator pacing him. Patient claims this is a second defibrillator. Patient claims that he is currently not on the transplant list but is on the LVAD list. Once he get on the LVAD list, he will then get on the transplant list. Patient describes history of coronary stent placement in the past but he could not show me any card regarding this. Past Medical History Cardiac Medical History: Reports: Atrial Fibrillation, Congestive Heart Failure , Coronary Artery Disease, Myocardial Infarction - 2014, Hyperlipidema, Hypertension Pulmonary Medical History: Denies: Tuberculosis Neurological Medical History: Reports: Migraine Endocrine Medical History: Reports: Diabetes Mellitus Type 2 Musculoskeltal Medical History: Reports: Arthritis Psychiatric Medical History: Reports: Depression Past Surgical History Past Surgical History: Reports: Cardiac Catheterization - x -12, Internal Defibrillator, Orthopedic Surgery - L knee x2; R knee x13, Pacemaker Social History Information Source: Patient Smoking Status: Unknown if Ever Smoked Frequency of Alcohol Use: Rare Hx Recreational Drug Use: No Drugs: None Hx Prescription Drug Abuse: No - Advance Directive Resuscitation Status: Full Code Surrogate healthcare decision maker:: Patient's is the surrogate decision-maker Family History Family History: CAD - significant family history of CAD, Other - Father: GA and CHF; Brother: heart disease; CHF Parental Family History Reviewed: Yes Children Family History Reviewed: Yes Sibling(s) Family History Reviewed.: Yes Medication/Allergy Home Medications: Alprazolam 1 mg PO DAILYP PRN 12/12/17 Aspirin [Aspirin 81 mg Chewable Tablet] 81 mg PO DAILY 12/12/17 Atorvastatin Calcium [Lipitor 40 mg Tablet] 40 mg PO QHS 12/12/17 Carvedilol [Coreg 25 mg Tablet] 25 mg PO Q12 12/12/17 Diazepam [Valium] 10 mg PO BIDP PRN 12/12/17 Furosemide [Lasix 80 mg Tablet] 80 mg PO QAM 12/12/17 Glimepiride [Amaryl 4 mg Tablet] 4 mg PO BID 12/12/17 Lisinopril 20 mg PO DAILY 12/12/17 Magnesium Oxide [Mag-Ox 400 mg Tablet] 400 mg PO DAILY 12/12/17 Metformin HCl [Glucophage] 1,000 mg PO BIDACBS 12/12/17 Metolazone [Zaroxolyn 2.5 Mg Tablet] 2.5 mg PO TUWETH@1000 12/12/17 Morphine Sulfate [Morphine Ir 15 Mg Tablet] 15 mg PO BIDP PRN 12/12/17 Sertraline HCl [Zoloft 50 mg Tablet] 50 mg PO DAILY 12/12/17 Spironolactone [Aldactone 25 mg Tablet] 25 mg PO DAILY 12/12/17 Warfarin Sodium [Coumadin 7.5 mg Tablet] 7.5 mg PO QHS 12/12/17 Allergies/Adverse Reactions: Iodinated Contrast- Oral and IV Dye [IV Dye, Iodine Containing] Allergy ( Verified 08/21/17 14:47) Anaphylaxis iodine Allergy (Verified 08/21/17 14:47) Shellfish * [Shellfish] Allergy (Verified 08/21/17 14:47) Review of Systems Review of Systems: Please see history of present illness and past medical history as wall. Constitutional: No fever or chills reported. Head : No recent chronic headaches, recent head injury. Eyes: No recent eye pain, diplopia, redness, discharge, acute visual changes. Ears: No recent chronic ear pain, acute hearing loss, ear discharge. Oral cavity: No recent ulcerations, bleeding, oral cavity discomfort. Neck: No recent acute neck pain reported. Hematologic: No recent easy bruising or bleeding or hematologic malignancy reported. Lymphatic: No recent lymphatic malignancy, chronic lymphadenopathy reported yet Cardiovascular system review: See history of present illness. Respiratory system review: No recent chronic cough, hemoptysis, blood clots in the lungs reported. Mild Shortness of breath on exertion Gastrointestinal system review: Negative for any recent acute or chronic abdominal pain, hematemesis, melena, recent change in bowel habits. Genitourinary system review: No recent acute or chronic hematuria, flank pain, UTI etc. reported. Skin system review: Negative for any recent abnormal bruising, no rash, no pruritus reported. Neurologic: No prior history of strokes, mini strokes, seizure disorder. Describes dizziness but no seizures Psychologic: No history of major psychosis or major depression reported. Musculoskeletal: Minor aches and pains reported. No acute joint swelling reported. Endocrine: No recent polyuria, polydipsia, recent heat or cold intolerance. Physical Exam Vital Signs: Temp Pulse Resp BP Pulse Ox 97.2 F 16 96/73 L 96 12/12/17 14:15 12/12/17 20:10 12/12/17 20:10 12/12/17 20:04 Exam: GENERAL: well-nourished and in no acute distress. Alert and oriented x3 HEAD: Atraumatic, normocephalic. EYES: Pupils equal round and reactive to light, extraocular movements intact, sclera anicteric, conjunctiva are normal. ENT: TMs normal, nares patent, oropharynx clear without exudates. Moist mucous membranes. No oral ulcerations or bleeding gums noted NECK: supple without lymphadenopathy. Trachea is central. No cervical or axillary lymphadenopathy noted. Carotids are 2+, JVD WNL LUNGS: Respiration seems nonlabored, no significant accessory muscle action noted. Breath sounds clear to auscultation bilaterally and equal noted. No wheezes rales or rhonchi noted. No significant dullness noted on percussion. CHEST: Palpation of the chest wall shows no significant chest wall tenderness. Defibrillator noted left-sided chest. 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 ABDOMEN: Soft, no significant tenderness appreciated, normoactive bowel sounds. No guarding, no rebound. No rigidity noted . No masses appreciated. EXTREMITIES: Pedal pulses are 1-2+, no calf tenderness noted. No clubbing or cyanosis. Trace to 1+ pedal edema noted NEUROLOGICAL: Focused neurological exam showed no significant neurologic deficit. Normal speech, no focal weakness appreciated. PSYCH: Normal mood, normal affect. Judgment and insight within normal limits. SKIN: No significant ecchymosis, skin is noted to be warm. MUSCULOSKELETAL EXAM: No significant acute joint swelling noted. Results EKG Comments: Atrial fibrillation, intermittent ventricular paced beats, minor nonspecific ST- T wave changes Impressions: Chest X-Ray 12/12/17 14:09 IMPRESSION: NO ACUTE RADIOGRAPHIC FINDING IN THE CHEST. Assessment & Plan - Diagnosis (1) Hypotension Qualifiers: Hypotension type: unspecified hypotension type Qualified Code(s): I95.9 - Hypotension, unspecified Is this a current diagnosis for this admission?: Yes (2) Cardiomyopathy Qualifiers: Cardiomyopathy type: unspecified Qualified Code(s): I42.9 - Cardiomyopathy , unspecified Is this a current diagnosis for this admission?: Yes (3) Chronic atrial fibrillation Is this a current diagnosis for this admission?: Yes (4) Coronary artery disease Qualifiers: Coronary Disease-Associated Artery/Lesion type: [place] artery [place] vs. transplanted heart: [place] heart Associated angina: angina presence unspecified Qualified Code(s): I25.10 - Atherosclerotic heart disease of [place] coronary artery without angina pectoris Is this a current diagnosis for this admission?: Yes (5) Inadequate anticoagulation Is this a current diagnosis for this admission?: Yes (6) Sleep apnea syndrome Qualifiers: Sleep apnea type: unspecified type Qualified Code(s): G47.30 - Sleep apnea , unspecified Is this a current diagnosis for this admission?: Yes (7) Status post internal cardiac defibrillator procedure Is this a current diagnosis for this admission?: Yes (8) CHF (congestive heart failure) Is this a current diagnosis for this admission?: No - Notes Notes: Hypotension: This is resolved. Patient was on IV fluids. Reduce IV fluid rate since blood pressure is stable. Start Midodrin. If blood pressure is a problem , transferred to the unit and start patient on vasopressin drip referred otherwise dopamine. Cardiomyopathy: Patient has severe dilated cardiomyopathy. Currently being followed at [facility]. Patient has initiated a call himself to get himself transferred. Patient will benefit from upgrade of his defibrillator to a biventricular defibrillator. It seems that patient does seem to pace a whole lot., And seems to pace with a wide left bundle branch block pattern. A left ventricular lead addition may help. Sleep apnea syndrome: Discussed that he will benefit from treatment of underlying sleep apnea syndrome. Currently claims claustrophobia but he would benefit from desensitization. Coronary artery disease: Currently chest pain-free. Patient to report any recurrence of chest pain. CHF: Currently compensated. May need to resume his baseline diuretic therapy on discharge. Inadequate anticoagulation: Because of CHF, anticoagulation with Coumadin would be difficult and possibly inadequate therefore will recommend newer oral anticoagulant. Patient will benefit from Eliquis therapy. Obesity: Patient will benefit from weight loss. Status post defibrillator placement: Patient will benefit from upgrade to biventricular defibrillator. This was repaired advised to the patient. - Time Time Spent: 50 to 70 Minutes - CODE STATUS was discussed, patient remains full code. Surrogate decision-maker unchanged. Multiple medical problems were addressed. More than 50% of the time spent coordinating care, discussing management plans with involved caregivers. Management plans discussed with involved personnels. Medical decision making was of moderate to high complexity , patient's has multiple comorbidities. Medications reviewed and adjusted accordingly: Yes
[2017-12-13] MEDS: ATORVASTATIN CALCIUM 40 MG TABLET PO SCH (21:02)
[2017-12-13] MEDS: CARVEDILOL 6.25 MG TABLET PO SCH (21:02)
[2017-12-14] MEDS: INSULIN LISPRO 100 UNIT/ML 3 ML VIAL SUBCUT PRN ×2 (08:30→17:56)
[2017-12-14] MEDS: MORPHINE SULFATE IR 15 MG TABLET PO PRN ×2 (08:56→19:59)
[2017-12-14] MEDS: PROMETHAZINE HCL INJ 25 MG/1 ML VIAL IV PRN (09:20)
--- NOTE | 2017-12-14 09:25 | EKG REPORT ---
SEVERITY:- ABNORMAL ECG - ATRIAL FIBRILLATION LEFT BUNDLE BRANCH BLOCK : Confirmed by: Caryn Blackman 14-Dec-2017 09:24:49
[2017-12-14] MEDS: CARVEDILOL 6.25 MG TABLET PO SCH ×2 (10:15→21:17)
[2017-12-14] MEDS: GLIMEPIRIDE 4 MG TABLET PO SCH ×2 (10:15→17:56)
[2017-12-14] MEDS: SERTRALINE HCL 50 MG TABLET PO SCH (10:15)
[2017-12-14] MEDS: MAGNESIUM OXIDE 400 MG TABLET PO SCH (10:15)
[2017-12-14] MEDS: APIXABAN 5 MG TABLET PO SCH ×2 (10:15→21:17)
[2017-12-14] MEDS: FAMOTIDINE INJ/PF 20 MG/2 ML SDV IV SCH ×2 (10:16→21:18)
[2017-12-14] MEDS: ASPIRIN 81 MG TABLET, CHEWABLE PO SCH (10:16)
--- NOTE | 2017-12-14 14:01 | PDOC PROGRESS REPORT ---
Subjective Progress Note for:: 12/14/17 Subjective:: Patient continues to have intermittent chest pain. They are somewhat longer in duration. Patient quite vague about this. Upon and I is now gone up. Patient does have known history of coronary artery disease. Patient has a history of severely depressed LVEF. Patient also has history of 2 stents in his heart. I did review his chest x-ray and also pacemaker card. It seems patient just has right atrial and right ventricular lead and does not have the LV lead. Reason For Visit: HYPOTENSION, CARDIOMYOPATHY Physical Exam Vital Signs: Temp Pulse Resp BP Pulse Ox 98.9 F 88 20 118/77 94 12/14/17 11:14 12/14/17 11:14 12/14/17 11:14 12/14/17 11:14 12/14/17 11:14 Intake & Output 12/13/17 12/14/17 12/15/17 06:59 06:59 06:59 Intake Total 1084 0 Output Total 1175 900 Balance -91 -900 Exam: GENERAL: well-nourished and in no acute distress. Alert and oriented x3 HEAD: Atraumatic, normocephalic. EYES: Pupils equal round and reactive to light, extraocular movements intact, sclera anicteric, conjunctiva are normal. ENT: TMs normal, nares patent, oropharynx clear without exudates. Moist mucous membranes. No oral ulcerations or bleeding gums noted NECK: supple without lymphadenopathy. Trachea is central. No cervical or axillary lymphadenopathy noted. Carotids are 2+, JVD WNL LUNGS: Respiration seems nonlabored, no significant accessory muscle action noted. Breath sounds clear to auscultation bilaterally and equal noted. No wheezes rales or rhonchi noted. No significant dullness noted on percussion. CHEST: Palpation of the chest wall shows no significant chest wall tenderness. 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 ABDOMEN: Soft, no significant tenderness appreciated, normoactive bowel sounds. No guarding, no rebound. No rigidity noted . No masses appreciated. EXTREMITIES: Pedal pulses are 1-2+, no calf tenderness noted. No clubbing or cyanosis. negative pedal edema noted NEUROLOGICAL: Focused neurological exam showed no significant neurologic deficit. Normal speech, no focal weakness appreciated. PSYCH: Normal mood, normal affect. Judgment and insight within normal limits. SKIN: No significant ecchymosis, skin is noted to be warm. MUSCULOSKELETAL EXAM: No significant acute joint swelling noted. Results Laboratory Results: 12/13/17 03:39 12/13/17 03:39 12/12/17 12/13/17 12/13/17 21:20 03:39 09:37 Troponin I 0.060 0.058 0.043 NT-Pro-B Natriuret Pep 708 H 12/14/17 12/14/17 05:12 10:42 Troponin I 1.070 1.070 NT-Pro-B Natriuret Pep EKG Comments: Twelve-lead EKG shows atrial fibrillation with nonspecific T-wave inversions. Impressions: Chest X-Ray 12/12/17 14:09 IMPRESSION: NO ACUTE RADIOGRAPHIC FINDING IN THE CHEST. Assessment & Plan - Diagnosis (1) Hypotension Qualifiers: Hypotension type: unspecified hypotension type Qualified Code(s): I95.9 - Hypotension, unspecified Is this a current diagnosis for this admission?: Yes (2) Cardiomyopathy Qualifiers: Cardiomyopathy type: unspecified Qualified Code(s): I42.9 - Cardiomyopathy , unspecified Is this a current diagnosis for this admission?: Yes (3) Chronic atrial fibrillation Is this a current diagnosis for this admission?: Yes (4) Coronary artery disease Qualifiers: Coronary Disease-Associated Artery/Lesion type: [place] artery [place] vs. transplanted heart: [place] heart Associated angina: angina presence unspecified Qualified Code(s): I25.10 - Atherosclerotic heart disease of [place] coronary artery without angina pectoris Is this a current diagnosis for this admission?: Yes (5) Inadequate anticoagulation Is this a current diagnosis for this admission?: Yes (6) Sleep apnea syndrome Qualifiers: Sleep apnea type: unspecified type Qualified Code(s): G47.30 - Sleep apnea , unspecified Is this a current diagnosis for this admission?: Yes (7) Status post internal cardiac defibrillator procedure Is this a current diagnosis for this admission?: Yes (8) CHF (congestive heart failure) Is this a current diagnosis for this admission?: No - Notes Notes: Patient still having some chest pain intermittently. Enzymes are now somewhat more abnormal. Feel that due to his severe cardiomyopathy, patient would benefit from tertiary care transfer for a heart catheterization. Patient has been followed up at [facility] in fact has an appointment with his primary care floor press operator on Saturday. Have discussed this with the hospitalist. She is going to arrange the transfer. Hypotension: This is resolved. Patient was on IV fluids. Reduce IV fluid rate since blood pressure is stable. Start Midodrin. If blood pressure is a problem , transferred to the unit and start patient on vasopressin drip referred otherwise dopamine. Cardiomyopathy: Patient has severe dilated cardiomyopathy. Currently being followed at [facility]. Patient has initiated a call himself to get himself transferred. Patient will benefit from upgrade of his defibrillator to a biventricular defibrillator. It seems that patient does seem to pace a whole lot., And seems to pace with a wide left bundle branch block pattern. A left ventricular lead addition may help. Sleep apnea syndrome: Discussed that he will benefit from treatment of underlying sleep apnea syndrome. Currently claims claustrophobia but he would benefit from desensitization. Coronary artery disease: Currently chest pain-free. Patient to report any recurrence of chest pain. CHF: Currently compensated. May need to resume his baseline diuretic therapy on discharge. Inadequate anticoagulation: Because of CHF, anticoagulation with Coumadin would be difficult and possibly inadequate therefore will recommend newer oral anticoagulant. Patient will benefit from Eliquis therapy. Obesity: Patient will benefit from weight loss. Status post defibrillator placement: Patient will benefit from upgrade to biventricular defibrillator. This was repaired advised to the patient. - Time Time with patient: Greater than 35 minutes - CODE STATUS was discussed, patient remains full code. Surrogate decision-maker unchanged. Multiple medical problems were addressed. More than 50% of the time spent coordinating care, discussing management plans with involved caregivers. Management plans discussed with involved personnels. Medical decision making was of moderate to high complexity, patient's has multiple comorbidities. Medications reviewed and adjusted accordingly: Yes
[2017-12-14] MEDS ORDERED: FUROSEMIDE INJ/PF 20 MG/2 ML SDV IV ONE (14:30)
[2017-12-14] MEDS ORDERED: LORAZEPAM INJ 2 MG/1 ML VIAL ONE (15:30)
[2017-12-14] MEDS ORDERED: MORPHINE SULFATE 10 MG/ML INJ ONE (15:30)
[2017-12-14] MEDS ORDERED: LORAZEPAM INJ 2 MG/1 ML VIAL IV ONE (16:00)
[2017-12-14] MEDS ORDERED: MORPHINE SULFATE 10 MG/ML INJ IV ONE (16:00)
[2017-12-14 16:10] LABS: CREATINE KINASE MB 2.12 ng/mL (<4.55)
[2017-12-14 16:14] LABS: TROPONIN I 0.782 ng/mL
--- NOTE | 2017-12-14 16:57 | PDOC TRANSFER SUMMARY ---
General Admission Date/PCP: 12/12/17 17:51 STEPHANIA REDMAN PA-C Admission Date: 12/12/17 Transfer Date: 12/14/17 Accepting Facility: [facility] Resuscitation Status: Full Code - Transfer Diagnosis (1) Cardiomyopathy Is this a current diagnosis for this admission?: Yes (2) Chronic atrial fibrillation Is this a current diagnosis for this admission?: Yes (3) Dehydration Is this a current diagnosis for this admission?: Yes (4) Hypotension Is this a current diagnosis for this admission?: Yes (5) Inadequate anticoagulation Is this a current diagnosis for this admission?: Yes (6) Chest pain Is this a current diagnosis for this admission?: Yes - Transfer Medications Home Medications: Alprazolam 1 mg PO DAILYP PRN 12/12/17 Aspirin [Aspirin 81 mg Chewable Tablet] 81 mg PO DAILY 12/12/17 Atorvastatin Calcium [Lipitor 40 mg Tablet] 40 mg PO QHS 12/12/17 Carvedilol [Coreg 25 mg Tablet] 25 mg PO Q12 12/12/17 Diazepam [Valium] 10 mg PO BIDP PRN 12/12/17 Furosemide [Lasix 80 mg Tablet] 80 mg PO QAM 12/12/17 Glimepiride [Amaryl 4 mg Tablet] 4 mg PO BID 12/12/17 Lisinopril 20 mg PO DAILY 12/12/17 Magnesium Oxide [Mag-Ox 400 mg Tablet] 400 mg PO DAILY 12/12/17 Metformin HCl [Glucophage] 1,000 mg PO BIDACBS 12/12/17 Metolazone [Zaroxolyn 2.5 Mg Tablet] 2.5 mg PO TUWETH@1000 12/12/17 Morphine Sulfate [Morphine Ir 15 Mg Tablet] 15 mg PO BIDP PRN 12/12/17 Sertraline HCl [Zoloft 50 mg Tablet] 50 mg PO DAILY 12/12/17 Spironolactone [Aldactone 25 mg Tablet] 25 mg PO DAILY 12/12/17 Warfarin Sodium [Coumadin 7.5 mg Tablet] 7.5 mg PO QHS 12/12/17 Transfer Medications: Current Medications Apixaban (Eliquis 5 Mg Tablet) 5 mg PO Q12 DIANNA Stop: 01/11/18 21:59 Last Admin: 12/14/17 10:15 Dose: 5 mg Aspirin (Aspirin 81 Mg Chewable Tablet) 81 mg PO DAILY DIANNA Stop: 01/12/18 09:59 Last Admin: 12/14/17 10:16 Dose: 81 mg Atorvastatin Calcium (Lipitor 40 Mg Tablet) 40 mg PO QHS [facility] Stop: 01/12/18 21:59 Last Admin: 12/13/17 21:02 Dose: 40 mg Carvedilol (Coreg 6.25 Mg Tablet) 6.25 mg PO Q12 DIANNA Stop: 01/12/18 21:59 Last Admin: 12/14/17 10:15 Dose: 6.25 mg Dextrose (Dextrose Inj 50% Syringe (25 Gm/50 Ml)) 12.5 gm IV PRN PRN; Protocol PRN Reason: FOR BG 50-69 IN ALERT PATIENT Stop: 01/11/18 22:44 Dextrose (Dextrose Inj 50% Syringe (25 Gm/50 Ml)) 25 gm IV PRN PRN PRN Reason: Protocol Stop: 01/11/18 22:44 Diazepam (Valium 5 Mg Tablet) 10 mg PO BIDP PRN PRN Reason: ANXIETY Stop: 12/20/17 09:50 Famotidine (Pepcid Inj/Pf 20 Mg/2 Ml Sdv) 20 mg IV Q12 [facility] Stop: 01/11/18 21:59 Last Admin: 12/14/17 10:16 Dose: 20 mg Glimepiride (Amaryl 4 Mg Tablet) 4 mg PO BID [facility] Stop: 01/12/18 09:59 Last Admin: 12/14/17 10:15 Dose: 4 mg Glucagon (Glucagen Inj 1 Mg Vial) 1 mg IM PRN PRN; Protocol PRN Reason: EVALUATE FOR BG < 70 Stop: 01/11/18 22:44 Glucose (Glutose 40% Gel 15 Gm Tube) 15 gm PO PRN PRN; Protocol PRN Reason: FOR BG 50-69 IN ALERT PATIENT Stop: 01/11/18 22:44 Glucose (Glutose 40% Gel 15 Gm Tube) 30 gm PO PRN PRN; Protocol PRN Reason: FOR BG < 50 IN ALERT PATIENT Stop: 01/11/18 22:44 Insulin Human Lispro (Humalog Insulin 100 Unit/1 Ml 3 Ml Vial) 0 - 12 unit SUBCUT ACHSP PRN PRN Reason: Protocol Stop: 01/11/18 22:46 Last Admin: 12/14/17 08:30 Dose: 2 unit Lisinopril (Prinivil 10 Mg Tablet) 20 mg PO DAILY [facility] Stop: 01/12/18 09:59 Last Admin: 12/13/17 10:36 Dose: 20 mg Magnesium Oxide (Mag-Ox 400 Mg Tablet) 400 mg PO DAILY DIANNA Stop: 01/12/18 09:59 Last Admin: 12/14/17 10:15 Dose: 400 mg Morphine Sulfate (Morphine Ir 15 Mg Tablet) 15 mg PO BIDP PRN PRN Reason: FOR PAIN Stop: 12/20/17 09:24 Last Admin: 12/14/17 08:56 Dose: 15 mg Promethazine HCl (Phenergan Inj 25 Mg/1 Ml Vial) 12.5 mg IV Q6HP PRN PRN Reason: NAUSEA/VOMITING Stop: 01/11/18 22:43 Last Admin: 12/14/17 09:20 Dose: 12.5 mg Sertraline HCl (Zoloft 50 Mg Tablet) 50 mg PO DAILY [facility] Stop: 01/12/18 09:59 Last Admin: 12/14/17 10:15 Dose: 50 mg Sodium Chloride (Saline Flush 2.5 Ml Monoject Prefil Syrin) 2.5 ml IV Q8 DIANNA Stop: 01/11/18 21:59 Last Admin: 12/14/17 13:45 Dose: 2.5 ml - Allergies Allergies/Adverse Reactions: Iodinated Contrast- Oral and IV Dye [IV Dye, Iodine Containing] Allergy ( Verified 08/21/17 14:47) Anaphylaxis iodine Allergy (Verified 08/21/17 14:47) Shellfish * [Shellfish] Allergy (Verified 08/21/17 14:47) - Diet/Activity Discharge Diet: Cardiac, Diabetic Hospital Course Hospital Course: Mr. Medina is a 47-year-old male with a known history of cardiomyopathy and an EF of 17%, status post pacer defibrillator The patient was admitted a 24 hours ago with a diagnosis of hypotension Patient felt dizzy lightheaded and had a blood pressure systolic of 85 in the emergency room Patient stated that he had doubled on his diuretics to be before Patient was treated with intravenous fluids and midodrine 5 mg 3 times daily was added to his medications Diuretics were held Blood pressure came up nicely to 100-110 systolic the next morning 1 chest pain Patient was complaining of chest pain on admission it was left-sided constant pressure-like Patient stated he had chest pain for a few days Serial EKGs and cardiac enzymes were performed 12/12/17 12/12/17 12/13/17 14:06 21:20 03:39 Creatine Kinase CK-MB (CK-2) Troponin I 0.072 0.060 0.058 12/13/17 12/14/17 12/14/17 09:37 05:12 10:42 Creatine Kinase CK-MB (CK-2) Troponin I 0.043 1.070 1.070 12/14/17 12/14/17 12/14/17 13:46 13:46 13:46 Creatine Kinase 59 CK-MB (CK-2) 2.26 Troponin I 0.854 12/14/17 12/14/17 15:33 15:33 Creatine Kinase 61 CK-MB (CK-2) 2.12 Troponin I 0.782 Troponin was positive at 1.0 on 12/14 then In a downward trend CPK and CPK-MB were normal range This afternoon around 4 PM patient chest pain got worse Was described as pleuritic left-sided radiating to the back Patient was treated with morphine IV and a small dose of Ativan Lung scan perfusion ventilation was ordered Results are pending at time of this dictation 2 chronic atrial fibrillation Controlled ventricular rate with paced beats Patient was inadequately anticoagulated with Coumadin on admission He was switched to Eliquis 5 mg twice daily 3 hypotension Was likely secondary to hypovolemia resolved Patient was just given 20 mg of Lasix IV today And Coreg was decreased to 6.25 twice daily We do wish to transfer the patient to [facility] for follow-up and reevaluation because of persistent chest pain in the setting of severe cardiomyopathy Physical Exam Vital Signs: Temp Pulse Resp BP Pulse Ox 98.9 F 88 20 104/82 94 12/14/17 11:14 12/14/17 11:14 12/14/17 11:14 12/14/17 14:00 12/14/17 11:14 Intake & Output 12/13/17 12/14/17 12/15/17 00:59 00:59 00:59 Intake Total 1074 10 Output Total 1175 900 Balance -101 -890 General appearance: PRESENT: no acute distress, cooperative, morbidly obese Head exam: PRESENT: atraumatic, normocephalic Eye exam: PRESENT: conjunctiva pink, EOMI, PERRLA. ABSENT: scleral icterus Neck exam: ABSENT: carotid bruit, JVD, lymphadenopathy, thyromegaly Respiratory exam: PRESENT: clear to auscultation meena. ABSENT: rales, rhonchi, wheezes Cardiovascular exam: PRESENT: irregular rhythm. ABSENT: diastolic murmur, rubs , systolic murmur Pulses: PRESENT: normal dorsalis pedis pul GI/Abdominal exam: PRESENT: normal bowel sounds, soft. ABSENT: distended, guarding, mass, organolmegaly, rebound, tenderness Rectal exam: PRESENT: deferred Extremities exam: PRESENT: full ROM. ABSENT: calf tenderness, clubbing, pedal edema Musculoskeletal exam: ABSENT: ambulatory, deformity, dislocation, full ROM, normal inspection, tenderness, other Neurological exam: PRESENT: alert, awake, oriented to person, oriented to place , oriented to time, oriented to situation, CN II-XII grossly intact. ABSENT: motor sensory deficit Psychiatric exam: PRESENT: appropriate affect, normal mood Skin exam: PRESENT: dry, intact, warm. ABSENT: cyanosis, rash Results Laboratory Results: 12/13/17 03:39 12/13/17 03:39 12/12/17 12/13/17 12/13/17 21:20 03:39 09:37 Creatine Kinase CK-MB (CK-2) Troponin I 0.060 0.058 0.043 NT-Pro-B Natriuret Pep 708 H 12/14/17 12/14/17 12/14/17 05:12 10:42 13:46 Creatine Kinase CK-MB (CK-2) Troponin I 1.070 1.070 0.854 NT-Pro-B Natriuret Pep 12/14/17 12/14/17 12/14/17 13:46 13:46 15:33 Creatine Kinase 59 61 CK-MB (CK-2) 2.26 Troponin I NT-Pro-B Natriuret Pep 12/14/17 15:33 Creatine Kinase CK-MB (CK-2) 2.12 Troponin I 0.782 NT-Pro-B Natriuret Pep EKG Comments: ATRIAL FIBRILLATION [MVPC] . MULTIPLE VENTRICULAR PREMATURE COMPLEXES [NIVCD] . NONSPECIFIC INTRAVENTRICULAR CONDUCTION DELAY [AMI1] . BORDERLINE R WAVE PROGRESSION, ANTERIOR LEADS Impressions: Chest X-Ray 12/12/17 14:09 IMPRESSION: NO ACUTE RADIOGRAPHIC FINDING IN THE CHEST. Plan Discharge Plan: Transfer to [facility] when a bed is available Time Spent: Greater than 30 Minutes
--- NOTE | 2017-12-14 17:25 | RADIOLOGY REPORT (SQ) ---
EXAM DESCRIPTION: CHEST SINGLE VIEW COMPLETED DATE/TIME: 12/14/2017 4:47 pm REASON FOR STUDY: chest pain, required for VQ scan COMPARISON: 2017. FINDINGS: Single frontal PA view chest. Intact pacer with 2 leads. Prior cardiomegaly and vascular congestion. No pneumothorax. No large pleural effusion. IMPRESSION: Cardiomegaly and vascular congestion. TECHNICAL DOCUMENTATION: JOB ID: [id number] Reading location - IP/workstation name: [email or web address]
--- NOTE | 2017-12-14 18:00 | RADIOLOGY REPORT (SQ) ---
EXAM DESCRIPTION: NM LUNG VENT/PERF SCAN COMPLETED DATE/TIME: 12/14/2017 5:51 pm REASON FOR STUDY: chest pain R/O PE COMPARISON: Single-view chest from earlier. RADIONUCLIDE AND DOSE: 5.45 millicuries TC-99m MAA Intravenous 31.6 millicuries TC-99m DTPA Inhaled aerosol TECHNIQUE: Eight views of the lungs acquired post ventilation of DTPA aerosol. Eight matching views of the lungs acquired following injection of MAA. LIMITATIONS: None. FINDINGS: VENTILATION: Symmetric and homogeneous distribution of DTPA aerosol during ventilatory pha se. No significant areas of photopenia. PERFUSION: Perfusion images with normal homogenous activity and no wedge-shaped or segmental defects. No ventilation-perfusion mismatches. OTHER: No other significant finding. IMPRESSION: NORMAL VENTILATION-PERFUSION LUNG SCAN. NEGATIVE FOR PULMONARY EMBOLI. TECHNICAL DOCUMENTATION: JOB ID: [id number] [employer]- All Rights Reserved Reading location - IP/workstation name: [email or web address]
[2017-12-14] MEDS: ATORVASTATIN CALCIUM 40 MG TABLET PO SCH (21:17)
[2017-12-15 01:44] VITALS: BP 120/87
--- NOTE | 2017-12-15 09:41 | EKG REPORT ---
SEVERITY:- ABNORMAL ECG - ATRIAL FIBRILLATION MULTIPLE VENTRICULAR PREMATURE COMPLEXES NONSPECIFIC INTRAVENTRICULAR CONDUCTION DELAY BORDERLINE R WAVE PROGRESSION, ANTERIOR LEADS : Confirmed by: Caryn Blackman 15-Dec-2017 09:40:08
--- NOTE | 2017-12-15 09:41 | EKG REPORT ---
SEVERITY:- ABNORMAL ECG - VENTRICULAR-PACED COMPLEXES LEFT BUNDLE BRANCH BLOCK A. FIB WITH NON SPECIFIC IVCD : Confirmed by: Caryn Blackman 15-Dec-2017 09:41:05
== END 2017-12-15 03:25 | disposition short-term general hospital (02) | DRG 315 ==
LOC: ER 13:53 → EH 17:51 → UNDOADMIN 17:51 → 3W 12-13 11:26
PROVIDERS: ADMIT Internal Medicine; ATTEND Internal Medicine
DX: I42.9 Cardiomyopathy, unspecified (principal); Z68.42 Body mass index [BMI] 45.0-49.9, adult; I95.9 Hypotension, unspecified; E86.0 Dehydration; E66.01 Morbid (severe) obesity due to excess calories; I48.2 Chronic atrial fibrillation; E78.5 Hyperlipidemia, unspecified; E11.9 Type 2 diabetes mellitus without complications; I44.7 Left bundle-branch block, unspecified; I25.10 Atherosclerotic heart disease of native coronary artery without angina pectoris; G43.909 Migraine, unspecified, not intractable, without status migrainosus; I11.0 Hypertensive heart disease with heart failure; M19.90 Unspecified osteoarthritis, unspecified site; E86.1 Hypovolemia; M10.9 Gout, unspecified; I50.9 Heart failure, unspecified; R07.89 Other chest pain; G47.30 Sleep apnea, unspecified; F32.9 Major depressive disorder, single episode, unspecified; I25.2 Old myocardial infarction; Z79.01 Long term (current) use of anticoagulants; Z95.810 Presence of automatic (implantable) cardiac defibrillator; Z82.49 Family history of ischemic heart disease and other diseases of the circulatory system; Z79.82 Long term (current) use of aspirin; Z79.899 Other long term (current) drug therapy; Z95.5 Presence of coronary angioplasty implant and graft; Z91.041 Radiographic dye allergy status; Z91.013 Allergy to seafood; Z79.84 Long term (current) use of oral hypoglycemic drugs
CPT/HCPCS: 36415; 71045; 78582; 80053; 81001; 82550; 82553; 82962; 83735; 83880; 84439; 84443; 84484; 85025; 85027; 85610; 93005; 93010; 93306; 96361; 96374; 99291; A9540; A9567; J1815; J1940; J2060; J2270; J2405; J2550; J3490; J7030; Q9969; S0028

== ENCOUNTER 2018-02-15 07:43 | Emergency (ER) | payer MEDICARE ==
--- NOTE | 2018-02-15 08:12 | ER Document Report ---
ED General - General Mode of Arrival: Medic Information source: Patient TRAVEL OUTSIDE OF THE [place] IN LAST 30 DAYS: No - General Chief Complaint: Arm Pain Stated Complaint: LEG, ARM PAIN Time Seen by Provider: 02/15/18 08:00 Notes: Patient is a 48-year-old male who presents to the emergency department today with complaints of a "severe gout attack". Patient complains of pain in his left ankle, left knee, right elbow, and right wrist. Patient was recently discharged from [place] secondary to a defibrillator infection. Patient has a port in his left chest and is currently getting vancomycin for 6 more weeks for antibiotic therapy. Patient is on colchicine for his gout. Patient states he is in pain management so he does not wish to have any pain medications to go home with he just wishes to have relief while he is here so that he can get some sleep. Patient denies any fevers. (SILVIA GODOY) - Related Data Allergies/Adverse Reactions: Iodinated Contrast- Oral and IV Dye [IV Dye, Iodine Containing] Allergy ( Verified 08/21/17 14:47) Anaphylaxis iodine Allergy (Verified 08/21/17 14:47) Shellfish * [Shellfish] Allergy (Verified 08/21/17 14:47) Past Medical History - General Information source: Patient - Social History Smoking Status: Never Smoker Cigarette use (# per day): No Frequency of alcohol use: None Drug Abuse: None Lives with: Family Family History: Reviewed & Not Pertinent, CAD - significant family history of CAD, Other - Father: OR and CHF; Brother: heart disease; CHF - Past Medical History Cardiac Medical History: Reports: Hx Atrial Fibrillation, Hx Congestive Heart Failure, Hx Coronary Artery Disease, Hx Heart Attack - 2013, Hx Hypercholesterolemia, Hx Hypertension Neurological Medical History: Reports: Hx Migraine Endocrine Medical History: Reports: Hx Diabetes Mellitus Type 2 Renal/ Medical History: Reports: Hx Kidney Stones Musculoskeltal Medical History: Reports Hx Arthritis, Reports Hx Musculoskeletal Deformity, Reports Hx Musculoskeletal Trauma Psychiatric Medical History: Reports: Hx Depression Traumatic Medical History: Reports: Hx Fractures Past Surgical History: Reports: Hx Cardiac Catheterization - x 10-12, Hx Cardiac Surgery - pacer/defib; stents x 2, Hx Internal Defibrillator, Hx Orthopedic Surgery - L knee x2; R knee x13, Hx Pacemaker - Immunizations Immunizations up to date: Yes Hx Diphtheria, Pertussis, Tetanus Vaccination: Yes Hx Pneumococcal Vaccination: 07/26/12 Review of Systems - Review of Systems Constitutional: denies: Fever EENT: No symptoms reported Cardiovascular: No symptoms reported Respiratory: No symptoms reported Gastrointestinal: No symptoms reported Genitourinary: No symptoms reported Male Genitourinary: No symptoms reported Musculoskeletal: See HPI, Other - "severe gout attack" Skin: No symptoms reported Hematologic/Lymphatic: No symptoms reported Neurological/Psychological: No symptoms reported -: Yes All other systems reviewed and negative Physical Exam - Vital signs Vitals: Temp Pulse Resp BP Pulse Ox 100.0 F 98 22 H 101/68 96 02/15/18 09:01 02/15/18 09:01 02/15/18 09:01 02/15/18 09:01 02/15/18 09:01 - Notes Notes: Physical Exam: General: Alert, appears chronically ill. HEENT: Normocephalic. Atraumatic. PERRL. Extraocular movements intact. Oropharynx clear. Neck: Supple. Non-tender. Respiratory: No respiratory distress. Clear and equal breath sounds bilaterally. Port in left chest wall with no surrounding erythema or exudate. Cardiovascular: Regular rate and rhythm. Abdominal: Normal Inspection. Non-tender. No distension. Normal Bowel Sounds. Back: Non-tender. No deformity or step off. Extremities: Moves all four extremities. Upper extremities: Tenderness with palpation and pain with passive movement of right elbow. Right wrist is non-tender. Lower extremities: Tenderness with palpation over the medial malleolus, pain with passive movement of left ankle. Neurological: Normal cognition. AAOx4. Normal speech. Psychological: Normal affect. Normal Mood. Skin: Warm. Dry. Normal color. (SILVIA GODOY) Course - Re-evaluation Re-evalutation: 02/15/18 08:19 Patient is well-appearing in no acute distress at this time other than pain in his left ankle as well as right elbow and mildly in his right wrist. There is no erythema suggests a this is cellulitis. Patient is reliable historian states this feels like his history of acute on chronic gout attacks. He recently was discharged from outside hospital and has tunneled port for IV vancomycin due to infection of pacemaker defibrillator that was placed and right upper chest wall. His wound and right upper chest wall is not warm there is no induration or fluctuance. Patient is requesting IV narcotic medication as he is already on oxycodone at home and is not requesting any take home narcotic medication Do not feel lab work would not change any management at this time as he is already on IV vancomycin and has been compliant. Do not feel like aspiration of any joints this time would be of any utility as well since he is on IV vancomycin. I am able to move his joints that are only mildly pain with movement. I will treat patient's pain at this time but strict return precautions provided were provided if he were to begin to develop any worsening of symptoms fevers or chills to return for reevaluation. Patient understands and agrees to this plan. He also has follow-up with [facility] on Saturday02/15/18 09:03 Patient's pain improved with medication. Patient states he is ready to go home. I was agreeable to give him a small amount of Dilaudid prior to discharge so he be able to get a good sleep when he gets home. Again, I stressed return precautions and patient is to follow-up with Joshua on Saturday otherwise. (MARCELL SIMPSON) - Vital Signs Vital signs: Temp Pulse Resp BP Pulse Ox 99.5 F 81 18 97/59 L 93 02/15/18 09:55 02/15/18 09:55 02/15/18 09:55 02/15/18 09:55 02/15/18 09:55 Discharge - Discharge Clinical Impression: Joint pain Qualifiers: Joint pain location: unspecified Qualified Code(s): M25.50 - Pain in unspecified joint Condition: Good Disposition: HOME, SELF-CARE Instructions: Gout ([facility]), Gout Diet ([facility]) Additional Instructions: Per discussion, please take your pain medication at home as well as your colchicine. If you begin to develop any worsening symptoms please return to the emergency department. Otherwise, please follow-up with Joshua on Saturday with your previously scheduled appointment. Referrals: JOSE ASH MD [NO LOCAL MD] - Follow up as needed Scribe Attestation: 02/15/18 15:25 I personally performed the services described documentation, reviewed and edited the documentation which was dictated to describe my presence, and it accurately records my words and actions. (MARCELL SIMPSON) Scribe Documentation - Scribe Written by Jw:: Jw Boyd, 02/15/2018 1000 acting as scribe for :: Kayden
[2018-02-15] MEDS ORDERED: HYDROMORPHONE HCL INJ/PF 2 MG/ML AMPULE IV ONE ×2 (08:13→09:04)
[2018-02-15] MEDS ORDERED: PROMETHAZINE HCL INJ 25 MG/1 ML VIAL IV ONE (08:18)
[2018-02-15 10:11] VITALS: BP 97/59
== END 2018-02-15 09:58 | disposition home or self-care (01) ==
LOC: ER 07:43
DX: M79.602 Pain in left arm (principal); M25.562 Pain in left knee; M25.572 Pain in left ankle and joints of left foot; M25.521 Pain in right elbow; M25.531 Pain in right wrist; I48.91 Unspecified atrial fibrillation; I50.9 Heart failure, unspecified; I25.10 Atherosclerotic heart disease of native coronary artery without angina pectoris; E78.00 Pure hypercholesterolemia, unspecified; E11.9 Type 2 diabetes mellitus without complications; I11.0 Hypertensive heart disease with heart failure; Z91.013 Allergy to seafood; I25.2 Old myocardial infarction; Z87.442 Personal history of urinary calculi; Z95.810 Presence of automatic (implantable) cardiac defibrillator
CPT/HCPCS: 96376; 99283; 96374; 96375; J1170; J2550

== ENCOUNTER 2018-02-16 16:46 | Emergency (ER) | payer MEDICARE ==
[2018-02-16] MEDS ORDERED: PIPERACILLIN/TAZOBACTAM 4.5 GM VIAL IV ONE (17:05)
--- NOTE | 2018-02-16 17:07 | ER Document Report ---
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 When EMS arrived, his blood pressure was 50/palpable and he was very weak. Patient was given 1 L normal saline by EMS prior to arrival with improvement of his mental status and blood pressure. He is also complaining of left upper chest wall pain where his central line is located. Patient denies fevers, nausea, vomiting, back pain, shortness of breath, hemoptysis, drainage from his AICD surgical wound or erythema around his central line. TRAVEL OUTSIDE OF THE [place] IN LAST 30 DAYS: No - Related Data Allergies/Adverse Reactions: Iodinated Contrast- Oral and IV Dye [IV Dye, Iodine Containing] Allergy ( Verified 02/16/18 16:55) Anaphylaxis iodine Allergy (Verified 02/16/18 16:55) Shellfish * [Shellfish] Allergy (Verified 02/16/18 16:55) Past Medical History - General Information source: Patient, Relative - Social History Smoking Status: Unknown if Ever Smoked Family History: Reviewed & Not Pertinent, CAD - significant family history of CAD, Other - Father: [place] and CHF; Brother: heart disease; CHF - Past Medical History Cardiac Medical History: Reports: Hx Atrial Fibrillation, Hx Congestive Heart Failure, Hx Coronary Artery Disease, Hx Heart Attack - 2014, Hx Hypercholesterolemia, Hx Hypertension Pulmonary Medical History: Denies: Hx Tuberculosis Neurological Medical History: Reports: Hx Migraine Endocrine Medical History: Reports: Hx Diabetes Mellitus Type 2 Renal/ Medical History: Reports: Hx Kidney Stones. Denies: Hx Peritoneal Dialysis Musculoskeltal Medical History: Reports Hx Arthritis, Reports Hx Musculoskeletal Deformity, Reports Hx Musculoskeletal Trauma Psychiatric Medical History: Reports: Hx Depression Traumatic Medical History: Reports: Hx Fractures Past Surgical History: Reports: Hx Cardiac Catheterization - x 10-12, Hx Cardiac Surgery - pacer/defib; stents x 2, Hx Internal Defibrillator, Hx Orthopedic Surgery - L knee x2; R knee x13, Hx Pacemaker - Immunizations Immunizations up to date: Yes Hx Diphtheria, Pertussis, Tetanus Vaccination: Yes Hx Pneumococcal Vaccination: 07/26/12 Review of Systems - Review of Systems Notes: REVIEW OF SYSTEMS: CONSTITUTIONAL: -fevers, +chills EENT: -eye pain, -difficulty swallowing, -nasal congestion CARDIOVASCULAR: +left upper chest wall pain, -syncope. RESPIRATORY: -cough, -SOB GASTROINTESTINAL: -abdominal pain, -nausea, -vomiting, -diarrhea GENITOURINARY: -dysuria, -hematuria MUSCULOSKELETAL: -back pain, -neck pain SKIN: -rash or skin lesions. HEMATOLOGIC: -easy bruising or bleeding. LYMPHATIC: -swollen, enlarged glands. NEUROLOGICAL: +confusion, -headache, -neurologic symptoms PSYCHIATRIC: -anxiety, -depression. ALL OTHER SYSTEMS REVIEWED AND NEGATIVE. Physical Exam - Vital signs Vitals: Resp Pulse Ox 19 97 02/16/18 16:59 02/16/18 16:59 - Notes Notes: PHYSICAL EXAMINATION: GENERAL: Ill-appearing. HEAD: Atraumatic, normocephalic. EYES: Pupils equal round and reactive to light, extraocular movements intact, sclera anicteric, conjunctiva are normal. ENT: nares patent, oropharynx clear without exudates. Moist mucous membranes. NECK: Normal range of motion, supple without lymphadenopathy LUNGS: Breath sounds clear to auscultation bilaterally and equal. No wheezes rales or rhonchi. HEART: Regular rate and rhythm without murmurs CHEST WALL: Right upper chest wall with surgical AICD wound and no surrounding erythema, tenderness or drainage. Left upper chest wall with central line in place without surrounding erythema, drainage or tenderness. ABDOMEN: Soft, nontender, normoactive bowel sounds. No guarding, no rebound. No masses appreciated. EXTREMITIES: Normal range of motion, no pitting or edema. No cyanosis. NEUROLOGICAL: Cranial nerves grossly intact. Normal speech. Normal sensory and motor exams. Slightly confused (providing his SSN when asked his name). SKIN: Pale skin. Course - Re-evaluation Re-evalutation: Patient with severe hypotension with SBP in 50's and generalized weakness. He was recently diagnosed with endocarditis and is on twice a day vancomycin (last dose this morning). After 1 L IV fluids, his blood pressure improved to 103/61 with a map of 74. Blood work reveals acute kidney injury with a new creatinine of 3.8 and elevated LFTs, which is most likely related to shock liver, as he has no right upper quadrant abdominal pain or tenderness. No nephrology or hepatology collections professional at [place]. His heart failure attending is located at [facility] patient requires transfer for specialized services. 02/16/18 18:11 Placed call to [facility] to discuss transfer. He is a patient of Dr. Benton (Heart Failure Attending at [facility]). Awaiting callback. After patient received IV fentanyl and IV Phenergan, he had a brief period of apnea, which quickly reversed with 0.4 mg Narcan. 02/16/18 18:[address] Robert Arnold ([facility] fellow) and he has accepted the patient under Dr. Kati Verdugo's service. 02/16/18 21:30 Transport in ED. Pt reassessed and stable for transport at this time. He does have a fever and will provide him with Tylenol. She had had a Murphy placed with 1 L of fluids out of his Murphy. He may have an obstructive nephropathy leading to his LIDIA. - Vital Signs Vital signs: Temp Pulse Resp BP Pulse Ox 101.9 F H 11 L 96/62 L 98 02/16/18 20:53 02/16/18 21:01 02/16/18 21:01 02/16/18 21:01 - Laboratory Result Diagrams: 02/16/18 16:58 02/16/18 16:58 Laboratory results interpreted by me: 02/16/18 02/16/18 02/16/18 16:58 16:58 16:58 RBC 2.99 L Hgb 9.1 L Hct 27.1 L RDW 16.6 H Seg Neutrophils % 79.6 H Lymphocytes % 8.3 L PT 30.5 H Sodium 136.2 L BUN 47 H Creatinine 3.82 H Est GFR ( Amer) 21 L Est GFR (Non-Af Amer) 17 L Glucose 61 L Lactic Acid Calcium 8.3 L Total Bilirubin 1.4 H Direct Bilirubin 0.6 H AST 395 H ALT 213 H Alkaline Phosphatase 146 H NT-Pro-B Natriuret Pep Total Protein 6.0 L Albumin 3.3 L Vancomycin Trough 02/16/18 02/16/18 02/16/18 16:58 17:58 17:58 RBC Hgb Hct RDW Seg Neutrophils % Lymphocytes % PT Sodium BUN Creatinine Est GFR ( Amer) Est GFR (Non-Af Amer) Glucose Lactic Acid 3.1 H Calcium Total Bilirubin Direct Bilirubin AST ALT Alkaline Phosphatase NT-Pro-B Natriuret Pep 8890 H Total Protein Albumin Vancomycin Trough 38.9 H - Diagnostic Test Radiology reviewed: Image reviewed, Reports reviewed Radiology results interpreted by me: CXR: Cardiomegaly - EKG Interpretation by Me Rate: Normal Kinnear/QRS: RBBB When compared to previous EKG there are: No significant change Critical Care Note - Critical Care Note Total time excluding time spent on procedures (mins): 45 Discharge - Discharge Clinical Impression: LIDIA (acute kidney injury), Shock liver, Severe congestive heart failure Hypotension Qualifiers: Hypotension type: unspecified hypotension type Qualified Code(s): I95.9 - Hypotension, unspecified Sepsis Qualifiers: Sepsis type: sepsis due to unspecified organism Qualified Code(s): A41.9 - Sepsis, unspecified organism Condition: Serious Disposition: [facility] Referrals: STEPHANIA REDMAN PA-C [Primary Care Provider] - Follow up as needed
[2018-02-16 17:16] LABS: ABSOLUTE BASOPHILS # (AUTO) 0.1 10^3/uL (0.0-0.2); ABSOLUTE LYMPHOCYTES (AUTO) 0.8 10^3/uL (0.5-4.7); ABSOLUTE MONOCYTES (AUTO) 1.1 10^3/uL (0.1-1.4); ABSOLUTE NEUT (AUTO) 7.5 10^3/uL (1.7-8.2); BASOPHILS % (AUTO) 0.6 % (0-2); EOSINOPHILS % (AUTO) 0.2 % (0-6); HEMATOCRIT 27.1 % (37.9-51.0); HEMOGLOBIN 9.1 g/dL (13.5-17.0); LYMPHOCYTES % (AUTO) 8.3 % (13-45); MEAN CORPUSCULAR HEMOGLOBIN 30.6 pg (27.0-33.4); MEAN CORPUSCULAR HGB CONC 33.7 g/dL (32.0-36.0); MEAN CORPUSCULAR VOLUME 91 fl (80-97); MONOCYTES % (AUTO) 11.3 % (3-13); PLATELET COUNT 185 10^3/uL (150-450); RED BLOOD COUNT 2.99 10^6/uL (4.35-5.55); RED CELL DISTRIBUTION WIDTH 16.6 % (11.5-14.0); SEGMENTED NEUTROPHILS % (AUTO) 79.6 % (42-78); TOTAL CELLS COUNTED % (AUTO) 100 %; VENOUS BLOOD BASE EXCESS -3.9 mmol/L; VENOUS BLOOD HCO3 21.9 mmol/L (20-32); VENOUS BLOOD PCO2 42.6 mmHg (35-63); VENOUS BLOOD PH 7.33 (7.30-7.42); WHITE BLOOD COUNT 9.4 10^3/uL (4.0-10.5)
[2018-02-16 17:23] LABS: INTERNATIONAL RATION (INR) 2.76; PROTHROMBIN TIME 30.5 SEC (11.4-15.4)
[2018-02-16 17:35] LABS: ALANINE AMINOTRANSFERASE 213 U/L (21-72); ALBUMIN 3.3 g/dL (3.5-5.0); ALKALINE PHOSPHATASE 146 U/L (38-126); ANION GAP 14 (5-19); ASPARTATE AMINO TRANSFERASE 395 U/L (17-59); BILIRUBIN,DIRECT 0.6 mg/dL (0.0-0.4); BILIRUBIN,TOTAL 1.4 mg/dL (0.2-1.3); BLOOD UREA NITROGEN 47 mg/dL (7-20); CALCIUM 8.3 mg/dL (8.4-10.2); CARBON DIOXIDE 23 mmol/L (22-30); CHLORIDE 99 mmol/L (98-107); GLUCOSE 61 mg/dL (75-110); POTASSIUM 4.6 mmol/L (3.6-5.0); SODIUM 136.2 mmol/L (137-145)
--- NOTE | 2018-02-16 18:04 | RADIOLOGY REPORT (SQ) ---
EXAM DESCRIPTION: CHEST SINGLE VIEW COMPLETED DATE/TIME: 02/16/2018 5:35 pm REASON FOR STUDY: septic COMPARISON: November. NUMBER OF VIEWS: One view. TECHNIQUE: Single frontal radiographic view of the chest acquired. LIMITATIONS: None. FINDINGS: LUNGS AND PLEURA: No opacities, masses or pneumothorax. No pleural effusion. MEDIASTINUM AND HILAR STRUCTURES: No masses. Contour normal. HEART AND VASCULAR STRUCTURES: Heart enlarged without failure. Normal vasculature. BONES: No acute findings. HARDWARE: Right pacer. Left IJ line, tip to the SVC. OTHER: No other significant finding. IMPRESSION: HEART ENLARGED WITHOUT FAILURE. NO OTHER SIGNIFICANT RADIOGRAPHIC FINDING IN THE CHEST. TECHNICAL DOCUMENTATION: JOB ID: [id number] [employer]- All Rights Reserved Reading location - IP/workstation name: [email or web address]
[2018-02-16] MEDS ORDERED: FENTANYL CITRATE INJ/PF 100 MCG/2 ML AMPUL IV ONE (18:06)
[2018-02-16] MEDS ORDERED: PROMETHAZINE HCL INJ 25 MG/1 ML VIAL IV ONE (18:06)
[2018-02-16] MEDS ORDERED: NORMAL SALINE 500 ML IV ONE (18:06)
[2018-02-16] MEDS ORDERED: NALOXONE HCL INJ/PF 0.4 MG/1 ML SDV ONE (18:26)
[2018-02-16] MEDS ORDERED: NALOXONE HCL INJ 2 MG/2 ML DISP.SYRIN ONE (18:28)
[2018-02-16] MEDS ORDERED: NALOXONE HCL INJ/PF 0.4 MG/1 ML SDV IV ONE (18:37)
[2018-02-16 19:46] LABS: VANCOMYCIN,TROUGH 38.9 ug/mL (5.0-20.0)
[2018-02-16 19:50] LABS: TROPONIN I 0.07 ng/mL
[2018-02-16] MEDS ORDERED: ACETAMINOPHEN 325 MG TABLET PO ONE (20:27)
--- NOTE | 2018-02-16 21:19 | EKG REPORT ---
SEVERITY:- ABNORMAL ECG - AFIB AND V-PACED COMPLEXES : Confirmed by: Caryn Blackman 16-Feb-2018 21:18:49
[2018-02-16 22:04] LABS: APPEARANCE,URINE SLIGHTLY-CLOUDY; BILIRUBIN,URINE NEGATIVE (NEGATIVE); COLOR,URINE YELLOW; GLUCOSE, URINE NEGATIVE (NEGATIVE); KETONES,URINE NEGATIVE (NEGATIVE); LEUKOCYTE ESTERASE,URINE NEGATIVE (NEGATIVE); NITRITE,URINE NEGATIVE (NEGATIVE); PROTEIN,URINE 30 mg/dL (NEGATIVE); URINE SPECIFIC GRAVITY 1.015; UROBILINOGEN,URINE NEGATIVE mg/dL (<2.0)
[2018-02-16 22:10] VITALS: BP 96/60
== END 2018-02-16 22:06 | disposition short-term general hospital (02) ==
LOC: ER 16:46
DX: A41.9 Sepsis, unspecified organism (principal); N17.9 Acute kidney failure, unspecified; K72.00 Acute and subacute hepatic failure without coma; I50.9 Heart failure, unspecified; I95.9 Hypotension, unspecified; R07.9 Chest pain, unspecified; R53.1 Weakness; R07.89 Other chest pain; R41.0 Disorientation, unspecified; Z79.899 Other long term (current) drug therapy; I38 Endocarditis, valve unspecified; I25.2 Old myocardial infarction; I10 Essential (primary) hypertension; E11.9 Type 2 diabetes mellitus without complications; I25.10 Atherosclerotic heart disease of native coronary artery without angina pectoris
CPT/HCPCS: 93005; 99291; 51702; 96375; 96365; 36415; 87040; 87086; 82962; 85025; 85610; 80053; 81001; 84484; 80202; 82803; 83605; 83880; 71045; 93010; A9270; J3010; J2310; J2550; J7040; J2543

== ENCOUNTER → 2018-04-14 | Outpatient (CLI) | payer MEDICARE, MEDICAID ==
[2018-04-14 15:48] LABS: ABSOLUTE BASOPHILS # (AUTO) 0.1 10^3/uL (0.0-0.2); ABSOLUTE EOSINOPHILS # (AUTO) 0.1 10^3/uL (0.0-0.6); ABSOLUTE LYMPHOCYTES (AUTO) 0.7 10^3/uL (0.5-4.7); ABSOLUTE MONOCYTES (AUTO) 0.6 10^3/uL (0.1-1.4); ABSOLUTE NEUT (AUTO) 5.5 10^3/uL (1.7-8.2); BASOPHILS % (AUTO) 1.2 % (0-2); EOSINOPHILS % (AUTO) 1.9 % (0-6); HEMATOCRIT 33.9 % (37.9-51.0); HEMOGLOBIN 11.1 g/dL (13.5-17.0); LYMPHOCYTES % (AUTO) 10.5 % (13-45); MEAN CORPUSCULAR HEMOGLOBIN 27.7 pg (27.0-33.4); MEAN CORPUSCULAR HGB CONC 32.6 g/dL (32.0-36.0); MEAN CORPUSCULAR VOLUME 85 fl (80-97); MONOCYTES % (AUTO) 7.9 % (3-13); PLATELET COUNT 197 10^3/uL (150-450); RED CELL DISTRIBUTION WIDTH 17.2 % (11.5-14.0); SEGMENTED NEUTROPHILS % (AUTO) 78.5 % (42-78); TOTAL CELLS COUNTED % (AUTO) 100 %; WHITE BLOOD COUNT 7.1 10^3/uL (4.0-10.5)
[2018-04-14 15:51] LABS: INTERNATIONAL RATION (INR) 1.39; PROTHROMBIN TIME 17.7 SEC (11.4-15.4)
[2018-04-14 16:02] LABS: ALANINE AMINOTRANSFERASE 22 U/L (21-72); ALBUMIN 3.9 g/dL (3.5-5.0); ALKALINE PHOSPHATASE 77 U/L (38-126); ANION GAP 13 (5-19); ASPARTATE AMINO TRANSFERASE 16 U/L (17-59); BILIRUBIN,DIRECT 0.3 mg/dL (0.0-0.4); BLOOD UREA NITROGEN 19 mg/dL (7-20); C-REACTIVE PROTEIN 35.2 mg/L (<10.0); CALCIUM 8.8 mg/dL (8.4-10.2); CARBON DIOXIDE 31 mmol/L (22-30); CHLORIDE 101 mmol/L (98-107); GLUCOSE 151 mg/dL (75-110); SODIUM 145.2 mmol/L (137-145); TOTAL PROTEIN 6.9 g/dL (6.3-8.2); URIC ACID 7.9 mg/dL (3.5-8.5)
[2018-04-14 16:30] LABS: ERYTHROCYTE SEDIMENTATION RATE 37 mm/hr (0-15)
== END ==
LOC: OD 15:06
PROVIDERS: ATTEND Physician Assistant
DX: E11.42 Type 2 diabetes mellitus with diabetic polyneuropathy (principal); E78.5 Hyperlipidemia, unspecified; I10 Essential (primary) hypertension; I42.1 Obstructive hypertrophic cardiomyopathy
CPT/HCPCS: 36415; 80053; 83735; 84550; 85025; 85610; 85652; 86140

== ENCOUNTER 2018-04-30 17:12 | Inpatient (IN) | payer MEDICARE, MEDICAID ==
[2018-04-30] MEDS ORDERED: ONDANSETRON HCL INJ/PF 4 MG/2 ML SDV IV ONE (17:41)
[2018-04-30] MEDS ORDERED: ASPIRIN 81 MG TABLET, CHEWABLE PO ONE (17:41)
[2018-04-30] MEDS ORDERED: MORPHINE SULFATE 10 MG/ML INJ IV ONE ×3 (17:41→21:20)
--- NOTE | 2018-04-30 17:41 | ER Document Report ---
ED Medical Screen (RME) - General Chief Complaint: Chest Pain Stated Complaint: CHEST PAIN Mode of Arrival: Ambulatory Information source: Patient, Relative, H Records Notes: 48-year-old male with type 2 diabetes, congestive heart failure, coronary artery disease, atrial fibrillation requiring pacemaker presents with complaint of chest pain, nausea, vomiting, abdominal pain and diarrhea. Patient states he awoke this morning vomiting and shortly afterwards has been experiencing constant pressure-like chest pain and generalized abdominal pain. Patient reports that he was admitted to [facility] in January where he is found to be septic secondary to pace maker lead infection. Left-sided pacemaker was removed at that time and placed to the right side. PHYSICAL EXAMINATION: GENERAL: no acute distress. HEAD: Atraumatic, normocephalic. EYES: Pupils equal round extraocular movements intact, conjunctiva are normal. ENT: Nares patent NECK: Normal range of motion LUNGS: No respiratory distress Musculoskeletal: Normal range of motion NEUROLOGICAL: Normal speech. PSYCH: Normal mood, normal affect. SKIN: Warm, Dry, normal turgor, no rashes or lesions noted. TRAVEL OUTSIDE OF THE [place].S. IN LAST 30 DAYS: No - Related Data Allergies/Adverse Reactions: Iodinated Contrast- Oral and IV Dye [IV Dye, Iodine Containing] Allergy ( Verified 04/30/18 17:13) Anaphylaxis iodine Allergy (Verified 04/30/18 17:13) Shellfish * [Shellfish] Allergy (Verified 04/30/18 17:13) Past Medical History - Social History Family history: CAD, DM, Hyperlipidemia, Hypertension, Malignancy - Past Medical History Cardiac Medical History: Reports: Hx Atrial Fibrillation, Hx Congestive Heart Failure, Hx Coronary Artery Disease, Hx Heart Attack - 2014, Hx Hypercholesterolemia, Hx Hypertension Pulmonary Medical History: Denies: Hx Tuberculosis Neurological Medical History: Reports: Hx Migraine Endocrine Medical History: Reports: Hx Diabetes Mellitus Type 2 Renal/ Medical History: Reports: Hx Kidney Stones. Denies: Hx Peritoneal Dialysis Musculoskeltal Medical History: Reports Hx Arthritis, Reports Hx Musculoskeletal Deformity, Reports Hx Musculoskeletal Trauma Psychiatric Medical History: Reports: Hx Depression Traumatic Medical History: Reports: Hx Fractures Past Surgical History: Reports: Hx Cardiac Catheterization - x 10-12, Hx Cardiac Surgery - pacer/defib; stents x 2, Hx Internal Defibrillator, Hx Orthopedic Surgery - L knee x2; R knee x13, Hx Pacemaker - Immunizations Immunizations up to date: Yes Hx Diphtheria, Pertussis, Tetanus Vaccination: Yes Physical Exam - Vital signs Vitals: Temp Pulse Resp BP Pulse Ox 97.6 F 95 14 107/74 98 04/30/18 17:24 04/30/18 17:24 04/30/18 17:24 04/30/18 17:24 04/30/18 17:24 Course - Vital Signs Vital signs: Temp Pulse Resp BP Pulse Ox 97.6 F 95 14 107/74 98 04/30/18 17:24 04/30/18 17:24 04/30/18 17:24 04/30/18 17:24 04/30/18 17:24 Doctor's Discharge - Discharge Referrals: STEPHANIA REDMAN PA-C [Primary Care Provider] - Follow up as needed
--- NOTE | 2018-04-30 18:16 | ER Document Report ---
ED General - General Mode of Arrival: Ambulatory Information source: Patient TRAVEL OUTSIDE OF THE [place]. IN LAST 30 DAYS: No - HPI Onset: This morning Onset/Duration: Gradual Quality of pain: Dull Severity: Moderate Pain Level: 3 Associated symptoms: Chest pain, Nausea, Vomiting. denies: Fever, Shortness of breath Exacerbated by: Denies Relieved by: Denies Similar symptoms previously: Yes Recently seen / treated by doctor: Yes <GILDARDO JEFFRIES - Last Filed: 05/01/18 00:26> <CECILLE LONDONO - Last Filed: 05/01/18 01:11> - General Chief Complaint: Chest Pain Stated Complaint: CHEST PAIN Time Seen by Provider: 04/30/18 18:12 Notes: This is a 48-year-old man with a history of coronary artery disease (2 stents), cardiomyopathy (ejection fraction 17% status post AICD), endocarditis who presents to the emergency room with left sided chest pain, nausea, vomiting and abdominal pain. Patient states his symptoms started this morning upon awakening. He states he felt fine yesterday. He denies any blood in the vomitus. He denies any diarrhea. He denies any fever. (GILDARDO JEFFRIES) - Related Data Allergies/Adverse Reactions: Iodinated Contrast- Oral and IV Dye [IV Dye, Iodine Containing] Allergy ( Verified 04/30/18 17:13) Anaphylaxis iodine Allergy (Verified 04/30/18 17:13) Shellfish * [Shellfish] Allergy (Verified 04/30/18 17:13) Past Medical History - General Information source: Patient, Relative, [facility] Records - Social History Smoking Status: Never Smoker Cigarette use (# per day): No Chew tobacco use (# tins/day): No Frequency of alcohol use: None Drug Abuse: None Lives with: Family Family History: Reviewed & Not Pertinent, CAD - significant family history of CAD, Other - Father: [place] and CHF; Brother: heart disease; CHF Patient has suicidal ideation: No Patient has homicidal ideation: No - Past Medical History Cardiac Medical History: Reports: Hx Atrial Fibrillation, Hx Congestive Heart Failure, Hx Coronary Artery Disease, Hx Heart Attack - 2013, Hx Hypercholesterolemia, Hx Hypertension Pulmonary Medical History: Denies: Hx Tuberculosis Neurological Medical History: Reports: Hx Migraine Endocrine Medical History: Reports: Hx Diabetes Mellitus Type 2 Renal/ Medical History: Reports: Hx Kidney Stones. Denies: Hx Peritoneal Dialysis Musculoskeletal Medical History: Reports Hx Arthritis, Reports Hx Musculoskeletal Deformity, Reports Hx Musculoskeletal Trauma Psychiatric Medical History: Reports: Hx Depression Traumatic Medical History: Reports: Hx Fractures Past Surgical History: Reports: Hx Cardiac Catheterization - x 10-12, Hx Cardiac Surgery - pacer/defib; stents x 2, Hx Internal Defibrillator, Hx Orthopedic Surgery - L knee x2; R knee x13, Hx Pacemaker - Immunizations Immunizations up to date: Yes Hx Diphtheria, Pertussis, Tetanus Vaccination: Yes Hx Pneumococcal Vaccination: 07/26/12 <GILDARDO JEFFRIES - Last Filed: 05/01/18 00:26> Review of Systems - Review of Systems Constitutional: denies: Chills, Fever EENT: No symptoms reported Cardiovascular: Chest pain. denies: Palpitations Respiratory: No symptoms reported Gastrointestinal: Abdominal pain, Nausea, Vomiting Genitourinary: No symptoms reported Male Genitourinary: No symptoms reported Musculoskeletal: No symptoms reported Skin: No symptoms reported Hematologic/Lymphatic: No symptoms reported Neurological/Psychological: No symptoms reported <GILDARDO JEFFRIES - Last Filed: 05/01/18 00:26> Physical Exam <GILDARDO JEFFRIES - Last Filed: 05/01/18 00:26> <CECILLE LONDONO Tess - Last Filed: 05/01/18 01:11> - Vital signs Vitals: Temp Pulse Resp BP Pulse Ox 97.6 F 95 14 107/74 98 04/30/18 17:24 04/30/18 17:24 04/30/18 17:24 04/30/18 17:24 04/30/18 17:24 Notes: Physical exam: GENERAL: 48-year-old man, alert and oriented 3, pale complexion, looks chronically ill HEAD: Atraumatic, normocephalic. EYES: Pupils equal round and reactive to light, extraocular movements intact, sclera anicteric, conjunctiva are normal. ENT: TMs normal, nares patent, oropharynx clear without exudates. Moist mucous membranes. NECK: Normal range of motion, supple without obvious mass or JVD. LUNGS: Breath sounds clear to auscultation bilaterally and equal. No wheezes rales or rhonchi. HEART: Regular rate and rhythm without murmurs, rubs or gallops. ABDOMEN: Soft, normoactive bowel sounds. Patient does have tenderness in the midline without any obvious palpable masses.. EXTREMITIES: Normal range of motion, no pitting or edema. No clubbing or cyanosis. NEUROLOGICAL: Cranial nerves II through XII grossly intact. Normal speech, moving all extremities. PSYCH: Normal mood, normal affect. SKIN: Warm, Dry, normal turgor, no rashes or lesions noted. (GILDARDO JEFFRIES) Course - Laboratory Result Diagrams: 04/30/18 18:05 04/30/18 18:05 - Diagnostic Test Radiology reviewed: Image reviewed, Reports reviewed - Chest x-ray shows stable cardiomegaly - EKG Interpretation by Me Rhythm: Other - Paced rhythm <GILDARDO JEFFRIES - Last Filed: 05/01/18 00:26> - Laboratory Result Diagrams: 04/30/18 18:05 04/30/18 18:05 <CECILLE LONDONO - Last Filed: 05/01/18 01:11> - Re-evaluation Re-evalutation: Patient's abdominal pain is resolved. Has requested p.o. and is tolerating mingo ирина. 05/01/18 00:04 Note: Patient has had current chest pain that he says 3/10 while awaiting an inpatient bed. I discussed the case with the hospitalist and I will contact [facility] cardiology service. I did discuss the case with Dr. Hawthorne of the cardiology service at [facility] ( he has seen the patient in the past and he was able look up the records from [facility]). I discussed the persistent pain that the patient is having as well as the labile blood pressure which limits therapy at this point. He is willing to accept the patient to the CCU (under Dr. Gabe Jimenez). They do not have a bed currently in the CCU and do not expect one tonight so is being placed on a list and the thought is that the bed will not be available until tomorrow (later on ). In the meantime, I will taper the patient to the IMCU. I did discuss with Dr. Rodriguez the plan of admit to the IMCU until the transfer is ready. The patient was given aspirin. He is properly anticoagulated (on Coumadin) and his INR is 2.5. He is getting some IV fluids cautiously He is gotten some morphine for pain, Zofran and Reglan for nausea. We will do a trial of a IV nitroglycerin so that it could be titrated up very small doses given his labile blood pressure. Discussed this plan with Dr. Perez at [facility] and he agrees with plan. 05/01/18 00:26 Note: Patient is currently pain-free and asleep. We will hold off on the nitro (it is at the bedside if he has any further pain). There are some concerns that he medicated himself (there is a home pill bottle benzodiazepines at the bedside). We will watch him closely. 05/01/18 00:27 05/01/18 00:29 05/01/18 00:30 Awaiting Transfer to [facility] (CCU-Dr Gabe Jimenez): bed not expected till later . [phone] (GILDARDO JEFFRIES) - Vital Signs Vital signs: Temp Pulse Resp BP Pulse Ox 97.6 F 95 21 H 101/86 H 97 04/30/18 17:24 04/30/18 17:24 04/30/18 20:36 04/30/18 20:01 04/30/18 20:36 - Laboratory Laboratory results interpreted by me: 04/30/18 04/30/18 04/30/18 18:05 18:05 18:05 RBC 4.20 L Hgb 11.1 L Hct 35.0 L MCH 26.4 L MCHC 31.7 L RDW 18.0 H Seg Neutrophils % 82.9 H Lymphocytes % 7.6 L PT 28.2 H APTT 41.1 H Sodium 136.3 L Potassium 3.3 L BUN 25 H Creatinine 1.26 H Glucose 142 H Magnesium Total Bilirubin 1.4 H Direct Bilirubin 0.5 H AST 61 H NT-Pro-B Natriuret Pep 04/30/18 04/30/18 18:05 18:05 RBC Hgb Hct MCH MCHC RDW Seg Neutrophils % Lymphocytes % PT APTT Sodium Potassium BUN Creatinine Glucose Magnesium 1.5 L Total Bilirubin Direct Bilirubin AST NT-Pro-B Natriuret Pep 3040 H Critical Care Note - Critical Care Note Total time excluding time spent on procedures (mins): 60 <GILDARDO JEFFRIES - [place] Filed: 05/01/18 00:26> Discharge - Discharge Admitting Provider: Hospitalist - Dr Londono Unit Admitted: IMCU <GILDARDO JEFFRIES - Last Filed: 05/01/18 00:26> <CECILLE LONDONO - Last Filed: 05/01/18 01:11> - Discharge Clinical Impression: Chest pain, Vomiting with nausea Condition: Stable Disposition: ADMITTED OBSERVATION
--- NOTE | 2018-04-30 18:16 | RADIOLOGY REPORT (SQ) ---
EXAM DESCRIPTION: CHEST SINGLE VIEW COMPLETED DATE/TIME: 04/30/2018 6:03 pm REASON FOR STUDY: chest pain COMPARISON: 02/16/2018 EXAM PARAMETERS: NUMBER OF VIEWS: One view. TECHNIQUE: Single frontal radiographic view of the chest acquired. RADIATION DOSE: NA LIMITATIONS: None. FINDINGS: LUNGS AND PLEURA: No opacities, masses or pneumothorax. No pleural effusion. MEDIASTINUM AND HILAR STRUCTURES: No masses. Contour normal. HEART AND VASCULAR STRUCTURES: Stable cardiomegaly. The central vasculature appears normal. BONES: No acute findings. HARDWARE: Stable AICD. OTHER: No other significant finding. IMPRESSION: Stable radiographic appearance of the chest demonstrating cardiomegaly without findings of overt failure. TECHNICAL DOCUMENTATION: JOB ID: [id number] [employer]- All Rights Reserved Reading location - IP/workstation name: [email or web address]
[2018-04-30 18:37] LABS: ABSOLUTE BASOPHILS # (AUTO) 0.1 10^3/uL (0.0-0.2); ABSOLUTE LYMPHOCYTES (AUTO) 0.8 10^3/uL (0.5-4.7); ABSOLUTE MONOCYTES (AUTO) 0.8 10^3/uL (0.1-1.4); ABSOLUTE NEUT (AUTO) 8.2 10^3/uL (1.7-8.2); BASOPHILS % (AUTO) 1.5 % (0-2); EOSINOPHILS % (AUTO) 0.4 % (0-6); HEMOGLOBIN 11.1 g/dL (13.5-17.0); LYMPHOCYTES % (AUTO) 7.6 % (13-45); MEAN CORPUSCULAR HEMOGLOBIN 26.4 pg (27.0-33.4); MEAN CORPUSCULAR HGB CONC 31.7 g/dL (32.0-36.0); MEAN CORPUSCULAR VOLUME 83 fl (80-97); MONOCYTES % (AUTO) 7.6 % (3-13); PLATELET COUNT 319 10^3/uL (150-450); SEGMENTED NEUTROPHILS % (AUTO) 82.9 % (42-78); TOTAL CELLS COUNTED % (AUTO) 100 %; WHITE BLOOD COUNT 9.9 10^3/uL (4.0-10.5)
[2018-04-30 18:43] LABS: PARTIAL THROMBOPLASTIN TIME 41.1 SEC (23.5-35.8)
[2018-04-30 18:48] LABS: PROTHROMBIN TIME 28.2 SEC (11.4-15.4)
[2018-04-30 18:57] LABS: ALANINE AMINOTRANSFERASE 41 U/L (21-72); ALKALINE PHOSPHATASE 112 U/L (38-126); ANION GAP 14 (5-19); ASPARTATE AMINO TRANSFERASE 61 U/L (17-59); BILIRUBIN,DIRECT 0.5 mg/dL (0.0-0.4); BILIRUBIN,TOTAL 1.4 mg/dL (0.2-1.3); BLOOD UREA NITROGEN 25 mg/dL (7-20); CALCIUM 8.7 mg/dL (8.4-10.2); CARBON DIOXIDE 24 mmol/L (22-30); CHLORIDE 98 mmol/L (98-107); GLUCOSE 142 mg/dL (75-110); LIPASE 63.6 U/L (23-300); POTASSIUM 3.3 mmol/L (3.6-5.0); SODIUM 136.3 mmol/L (137-145); TOTAL PROTEIN 7.4 g/dL (6.3-8.2)
[2018-04-30 19:13] LABS: CREATINE KINASE MB 1.5 ng/mL (<4.55)
[2018-04-30 19:19] LABS: TROPONIN I 0.056 ng/mL
[2018-04-30] MEDS ORDERED: METOCLOPRAMIDE HCL INJ/PF 10 MG/2 ML SDV IV ONE ×2 (19:32→21:20)
[2018-04-30] MEDS ORDERED: NORMAL SALINE 250 ML IV ONE ×2 (19:33→20:20)
--- NOTE | 2018-04-30 19:38 | RADIOLOGY REPORT (SQ) ---
EXAM DESCRIPTION: CT ABD/PELVIS NO ORAL OR IV COMPLETED DATE/TIME: 04/30/2018 7:07 pm REASON FOR STUDY: abdominal pain COMPARISON: None. TECHNIQUE: CT scan of the abdomen and pelvis performed without intravenous or oral contrast. Images reviewed with lung, soft tissue, and bone windows. Reconstructed coronal and sagittal MPR images revi ewed. All images stored on PACS. All CT scanners at this facility use dose modulation, iterative reconstruction, and/or weight based d osing when appropriate to reduce radiation dose to as low as reasonably achievable (ALARA). [facility]: Dose Right [facility]: CareDose [facility]: Dose Right [facility]: Teradose 4D [facility]: Smart [employer] RADIATION DOSE: CT Rad equipment meets quality standard of care and radiation dose reduction techniq ues were employed. CTDIvol: 21.1 mGy. DLP: 1313 mGy-cm.mGy. LIMITATIONS: None. FINDINGS: LOWER CHEST: No significant findings. No nodules or infiltrates. NON-CONTRASTED LIVER, SPLEEN, ADRENALS: Evaluation limited by lack of IV contrast. No identified sign ificant masses. PANCREAS: No masses. No peripancreatic inflammatory changes. GALLBLADDER: A few very small gallstones are present. RIGHT KIDNEY AND URETER: No suspicious masses. Assessment limited by lack of IV contrast. Nonobstru cting intrarenal calculi. No hydronephrosis or hydroureter. LEFT KIDNEY AND URETER: No suspicious masses. Assessment limited by lack of IV contrast. Nonobstruc ting intrarenal calculus. No hydronephrosis or hydroureter. AORTA AND RETROPERITONEUM: No aneurysm. No retroperitoneal masses or adenopathy. BOWEL AND PERITONEAL CAVITY: Small amount of ascites. No bowel masses. No inflammatory changes. APPENDIX: Not identified. PELVIS, BLADDER, AND ABDOMINAL WALL:Urinary bladder is normal. No pelvic mass. BONES: Superior endplate compression changes at L2 of uncertain age. OTHER: No other significant finding. IMPRESSION: 1. There is a small amount of ascites. 2. Superior endplate compression changes at L2 of uncertain age. 3. Cholelithiasis. COMMENT: Quality ID # [id number]: Final reports with documentation of one or more dose reduction techniques (e.g., Automated exposure control, adjustment of the mA and/or kV according to patient size, use of iterative reconstruction technique) TECHNICAL DOCUMENTATION: JOB ID: [id number] [employer]- All Rights Reserved Reading location - IP/workstation name: [email or web address]
--- NOTE | 2018-04-30 19:51 | EKG REPORT ---
SEVERITY:- ABNORMAL ECG - AFIB/FLUTTER AND VENTRICULAR-PACED RHYTHM : Confirmed by: Herbert Justice MD 30-Apr-2018 19:50:05
[2018-04-30] MEDS ORDERED: NITROGLYCERIN/D5W 50 MG/250 ML RTUINJ IV PRN (23:36)
[2018-05-01] MEDS ORDERED: PROMETHAZINE HCL INJ 25 MG/1 ML VIAL IV PRN (00:07)
[2018-05-01] MEDS ORDERED: ACETAMINOPHEN 325 MG TABLET PO PRN (00:07)
[2018-05-01] MEDS ORDERED: MAG HYDROX/AL HYDROX/SIMETH SUSP 30 ML UDCUP PO PRN (00:07)
[2018-05-01] MEDS ORDERED: NOREPINEPHRINE BITARTRATE INJ/PF 4 MG/4 ML SDV IV ONE (01:08)
[2018-05-01 01:12] LABS: CREATINE KINASE MB 1.31 ng/mL (<4.55); TROPONIN I 0.064 ng/mL
--- NOTE | 2018-05-01 01:32 | PDOC H&P ---
History of Present Illness Admission Date/PCP: 04/30/18 22:31 STEPHANIA REDMAN PA-C Patient complains of: Nausea, vomiting, chest pain History of Present Illness: KEAGAN RODARTE is a 48 year old maleWith medical history of coronary artery disease with 2 stents, cardiomyopathy with ejection fraction of 17%, status post AICD, endocarditis. Presented to the emergency department complaining of persistent nausea, nonbloody vomiting, abdominal pain, chest pressure, in the middle of the chest, 7-1/2 over 10 intensity, associated with shortness of breath, also pressure in the left upper extremity. Patient has several admissions to our facility and usually he is transferred to [facility] as per the complexity of his cardiac disease. He asked his to [facility] but she brought him here In the ED patient still complains of chest pressure 3/10 in intensity feel nauseous. D/W Dr Ahuja in ED, he agrees to call [facility] cardiology, spoke witk Dr. Brooks who treated the patient before and accepted transfer under Dr. Gabe Jimenez care in CCU bed, unfortunately they are not going to have a bit ready until afternoon. The patient was not initiated on nitroglycerin drip after was ordered as his blood pressure has dropped to 70 over 40s, I placed an order to discontinue the nitroglycerin infusion and initiate him on levophed if necessary. I am changing the patient to ICU. In addition given several doses of morphine IV and Zofran. Patient is on Coumadin with therapeutic INR. Past Medical History Cardiac Medical History: Reports: Atrial Fibrillation, Congestive Heart Failure , Coronary Artery Disease, Myocardial Infarction - 2014, Hyperlipidema, Hypertension Pulmonary Medical History: Denies: Tuberculosis Neurological Medical History: Reports: Migraine Endocrine Medical History: Reports: Diabetes Mellitus Type 2 Musculoskeltal Medical History: Reports: Arthritis Psychiatric Medical History: Reports: Depression Past Surgical History Past Surgical History: Reports: Cardiac Catheterization - x 10-12, Internal Defibrillator, Orthopedic Surgery - L knee x2; R knee x13, Pacemaker Social History Lives with: Family Smoking Status: Never Smoker Frequency of Alcohol Use: Rare Hx Recreational Drug Use: No Drugs: None Hx Prescription Drug Abuse: No Family History Family History: Reviewed & Not Pertinent, CAD - significant family history of CAD, Other - Father: VT and CHF; Brother: heart disease; CHF Parental Family History Reviewed: No Children Family History Reviewed: NA Sibling(s) Family History Reviewed.: NA Medication/Allergy Home Medications: Alprazolam 1 mg PO DAILYP PRN 12/12/17 Atorvastatin Calcium [Lipitor 40 mg Tablet] 40 mg PO QHS 12/12/17 Carvedilol [Coreg 25 mg Tablet] 25 mg PO QHS 12/12/17 Diazepam [Valium] 10 mg PO BIDP PRN 12/12/17 Glimepiride [Amaryl 4 mg Tablet] 4 mg PO BID 12/12/17 Lisinopril 20 mg PO BID 12/12/17 Magnesium Oxide [Mag-Ox 400 mg Tablet] 400 mg PO BID 12/12/17 Metolazone [Zaroxolyn 2.5 Mg Tablet] 2.5 mg PO TUWETH@1000 12/12/17 Morphine Sulfate [Morphine Ir 15 Mg Tablet] 15 mg PO BIDP PRN MDD 4x day Sertraline HCl [Zoloft 50 mg Tablet] 50 mg PO DAILY 12/12/17 Spironolactone [Aldactone 25 mg Tablet] 12.5 mg PO DAILY 12/12/17 Warfarin Sodium [Coumadin 7.5 mg Tablet] 7.5 mg PO QHS 12/12/17 Torsemide [Demadex] 20 mg PO DAILY 04/30/18 Allergies/Adverse Reactions: Iodinated Contrast- Oral and IV Dye [IV Dye, Iodine Containing] Allergy ( Verified 04/30/18 17:13) Anaphylaxis iodine Allergy (Verified 04/30/18 17:13) Shellfish * [Shellfish] Allergy (Verified 04/30/18 17:13) Review of Systems Review of Systems: As outlined in the HPI, all others negative Physical Exam Vital Signs: Temp Pulse Resp BP Pulse Ox 97.6 F 95 21 H 101/86 H 97 04/30/18 17:24 04/30/18 17:24 04/30/18 20:36 04/30/18 20:01 04/30/18 20:36 Intake & Output 04/29/18 04/30/18 05/01/18 06:59 06:59 06:59 Intake Total 250 Balance 250 Additional comments: General appearance: Morbidly obese, alert and cooperative, and appears to be in mild distress secondary to chest tightness and nausea Head: Normocephalic Eyes: PEERL, EOMI, vision is grossly intact. Ears: External auditory canal and tympanic membranes clear, hearing grossly intact. Nose: No nasal discharge. Throat: Oral cavity and pharynx normal. No inflammation, swelling, exudate or lesions. Neck: Neck supple, nontender without lymphadenopathy, masses or thyromegaly. Cardiac: Normal S1 and S2. No S3, S4 or murmurs. Rhythm is regular. There is no peripheral edema, cyanosis or pallor. Extremities are warm and well perfused. Capillary refill is less than 2 seconds. No carotid bruits. Lungs: Clear to auscultation and percussion without rales, rhonchi, wheezing or diminished breath sounds. Not using accessory muscles. Abdomen: Positive bowel sounds. Soft. Nondistended, nontender. No guarding or rebound. No masses. No hepatosplenomegaly Extremities: No significant deformity or joint abnormality. Peripheral pulses intact. No varicosities. Neurological: Cranial nerves II through XII grossly intact. Strength and sensation symmetric and intact throughout. Reflexes 2+ throughout. Mild slurred speech Skin: Skin normal color, texture and turgor with no lesions or eruptions, warm and dry. Psychiatric: The mental examination revealed the patient was oriented to person , place, and time. The patient was able to demonstrate good judgment on recent , without hallucinations, abnormal affect or abnormal behaviors. Results Laboratory Results: 04/30/18 04/30/18 23:00 23:00 Lactic Acid Cancelled 2.9 H 04/30/18 04/30/18 04/30/18 18:05 18:05 18:05 WBC 9.9 RBC 4.20 L Hgb 11.1 L Hct 35.0 L MCV 83 MCH 26.4 L MCHC 31.7 L RDW 18.0 H Plt Count 319 Seg Neutrophils % 82.9 H Lymphocytes % 7.6 L Monocytes % 7.6 Eosinophils % 0.4 Basophils % 1.5 Absolute Neutrophils 8.2 Absolute Lymphocytes 0.8 Absolute Monocytes 0.8 Absolute Eosinophils 0.0 Absolute Basophils 0.1 PT 28.2 H INR 2.50 APTT 41.1 H Lactic Acid Magnesium Creatine Kinase CK-MB (CK-2) 1.50 Troponin I 0.056 NT-Pro-B Natriuret Pep 3040 H 04/30/18 04/30/18 05/01/18 18:05 23:00 00:37 WBC RBC Hgb Hct MCV MCH MCHC RDW Plt Count Seg Neutrophils % Lymphocytes % Monocytes % Eosinophils % Basophils % Absolute Neutrophils Absolute Lymphocytes Absolute Monocytes Absolute Eosinophils Absolute Basophils PT INR APTT Lactic Acid 2.9 H Magnesium 1.5 L Creatine Kinase 87 CK-MB (CK-2) Troponin I NT-Pro-B Natriuret Pep Impressions: Chest X-Ray 04/30/18 17:37 IMPRESSION: Stable radiographic appearance of the chest demonstrating cardiomegaly without findings of overt failure. Abdomen/Pelvis CT 04/30/18 18:16 IMPRESSION: 1. There is a small amount of ascites. 2. Superior endplate compression changes at L2 of uncertain age. 3. Cholelithiasis. Assessment & Plan - Diagnosis (1) Chest pain Qualifiers: Chest pain type: unspecified Qualified Code(s): R07.9 - Chest pain, unspecified Is this a current diagnosis for this admission?: Yes Plan: Patient comes complaining of chest pressure, patient has extensive history of coronary arterial disease. Follows at [facility] with Dr. Hunter Cabrales. Transfer has been arranged in the ED once they have a bed available. See HPI for details. Currently patient is chest pain-free, Nitroglycerin infusion order has been discontinued for hypotension. Continue telemetry monitoring and cardiac enzymes 3. (2) Intractable nausea and vomiting Is this a current diagnosis for this admission?: Yes Plan: Probably secondary to cardiac disease. CT abdomen and pelvis negative. Reglan 10 mg every 6 hours as scheduled. Denies diarrhea. (3) Hypotension Qualifiers: Hypotension type: unspecified hypotension type Qualified Code(s): I95.9 - Hypotension, unspecified Is this a current diagnosis for this admission?: Yes Plan: At the time of my evaluation, the patient was borderline hypotensive, his blood pressures have not suddenly dropped to 70 over 40s. Patient was not started on nitroglycerin infusion in the ED but was order, has been discontinued. By the time I went to see him he had a slurred speech and told me that is because he was very tired, however a bottle of benzodiazepines was found at the bedside. I suspect that he was self-medicating in the ED. At the time of this dictation Levophed will be a started (4) Chronic atrial fibrillation Is this a current diagnosis for this admission?: Yes Plan: On Coumadin at home, INR 2.5. On Coreg which is going to be on hold. (5) Coronary artery disease Qualifiers: Coronary Disease-Associated Artery/Lesion type: [place] artery [place] vs. transplanted heart: [place] heart Associated angina: angina presence unspecified Qualified Code(s): I25.10 - Atherosclerotic heart disease of [place] coronary artery without angina pectoris Is this a current diagnosis for this admission?: Yes Plan: Unclear if this is an acute coronary syndrome episode has been given aspirin in the ED. Pending transfer to [facility] (6) Chronic systolic CHF (congestive heart failure) Is this a current diagnosis for this admission?: Yes Plan: With a ejection fraction 17% with cardiomyopathy, is hypotensive, we are going to place on hold his Lasix. (7) Hypertension Is this a current diagnosis for this admission?: Yes Plan: Patient is hypotensive, all antihypertensive medications on hold. - Time Time Spent: 30 to 50 Minutes
[2018-05-01] MEDS: DEXTROSE 5%-WATER 250 ML with NOREPINEPHRINE BITARTRATE 4 MG IV PRN ×4 (01:33→15:40)
[2018-05-01] MEDS ORDERED: POTASSI CL 20 MEQ/50 ML RIDER 20 MEQ/50 ML RTUPB IV ONE (01:33)
[2018-05-01] MEDS: METOCLOPRAMIDE HCL INJ/PF 10 MG/2 ML SDV IV SCH ×4 (01:40→18:34)
[2018-05-01] MEDS: MAGNESIUM SULFATE/D5W 1 GM/100 ML RTUPB IV SCH ×2 (02:01→03:15)
[2018-05-01] MEDS ORDERED: POTASSIUM CHLORIDE 10 MEQ CAPSULE.ER PO ONE (02:19)
[2018-05-01 09:24] LABS: HEMATOCRIT 36.2 % (37.9-51.0); HEMOGLOBIN 11.5 g/dL (13.5-17.0); MEAN CORPUSCULAR HEMOGLOBIN 26.7 pg (27.0-33.4); MEAN CORPUSCULAR HGB CONC 31.6 g/dL (32.0-36.0); MEAN CORPUSCULAR VOLUME 84 fl (80-97); PLATELET COUNT 327 10^3/uL (150-450); RED BLOOD COUNT 4.29 10^6/uL (4.35-5.55); RED CELL DISTRIBUTION WIDTH 18.1 % (11.5-14.0); WHITE BLOOD COUNT 17.4 10^3/uL (4.0-10.5)
[2018-05-01 09:31] LABS: ALBUMIN 4.1 g/dL (3.5-5.0); ALKALINE PHOSPHATASE 115 U/L (38-126); ANION GAP 19 (5-19); BILIRUBIN,DIRECT 2.3 mg/dL (0.0-0.4); BLOOD UREA NITROGEN 35 mg/dL (7-20); CALCIUM 9.1 mg/dL (8.4-10.2); CARBON DIOXIDE 22 mmol/L (22-30); CHLORIDE 95 mmol/L (98-107); CREATINE KINASE 104 U/L (55-170); CREATINE KINASE MB 1.25 ng/mL (<4.55); GLUCOSE 153 mg/dL (75-110); SODIUM 135.7 mmol/L (137-145); TOTAL PROTEIN 7.3 g/dL (6.3-8.2)
[2018-05-01] MEDS ORDERED: VANCOMYCIN HCL 0 MG in DEXTROSE 5%-WATER 250 ML IV NR (10:30)
[2018-05-01 10:35] LABS: ABSOLUTE LYMPHOCYTES# (MANUAL) 0.2 10^3/uL (0.5-4.7); ABSOLUTE MONOCYTES # (MANUAL) 0.3 10^3/uL (0.1-1.4); ABSOLUTE NEUTROPHILS# (MANUAL) 16.9 10^3/uL (1.7-8.2); ANISOCYTOSIS 2+; BASOPHILS % (MANUAL) 0 % (0-2); EOSINOPHILS % (MANUAL) 0 % (0-6); HYPOCHROMASIA SLIGHT; LYMPHOCYTES % (MANUAL) 1 % (13-45); MONOCYTES % (MANUAL) 2 % (3-13); NUCLEATED RED BLOOD CELLS 1 /100 WBC (0); OVALOCYTES 1+; PLATELET CLUMPS PRESENT; PLATELET COMMENT ADEQUATE; POIKILOCYTOSIS 1+; POLYCHROMASIA 1+; SEGMENTED NEUTROPHILS % (MAN) 97 % (42-78); TOTAL CELLS COUNTED 100; TOXIC GRANULATION SLIGHT
[2018-05-01 10:43] LABS: ALANINE AMINOTRANSFERASE 1802 U/L (21-72); ASPARTATE AMINO TRANSFERASE 2850 U/L (17-59)
[2018-05-01 11:19] LABS: TROPONIN I 0.078 ng/mL
[2018-05-01 11:35] LABS: INTERNATIONAL RATION (INR) 4.62
[2018-05-01 11:37] LABS: PROTHROMBIN TIME 45.7 SEC (11.4-15.4)
[2018-05-01 12:08] LABS: BILIRUBIN,TOTAL 3.8 mg/dL (0.2-1.3); POTASSIUM 4.7 mmol/L (3.6-5.0)
[2018-05-01] MEDS ORDERED: VANCOMYCIN HCL 2,000 MG in DEXTROSE 5%-WATER 500 ML IV ONE (13:00)
[2018-05-01 13:17] LABS: CREATINE KINASE MB 1.85 ng/mL (<4.55); TROPONIN I 0.068 ng/mL
[2018-05-01] MEDS: PIPERACILLIN SODIUM/TAZOBACTAM 4.5 GM in NORMAL SALINE 100 ML IV SCH ×2 (15:31→20:16)
--- NOTE | 2018-05-01 19:38 | PDOC TRANSFER SUMMARY ---
General Admission Date/PCP: 04/30/18 22:31 STEPHANIA REDMAN PA-C Resuscitation Status: Full Code - Transfer Diagnosis (1) Chronic systolic CHF (congestive heart failure) Is this a current diagnosis for this admission?: Yes (3) Chest pain Is this a current diagnosis for this admission?: Yes (4) Chronic atrial fibrillation Is this a current diagnosis for this admission?: Yes (5) Coronary artery disease Is this a current diagnosis for this admission?: Yes (6) Hypotension Is this a current diagnosis for this admission?: Yes - Transfer Medications Home Medications: Diazepam [Valium] 10 mg PO DAILYP PRN 12/12/17 Glimepiride [Amaryl 4 mg Tablet] 4 mg PO BID 12/12/17 Metolazone [Zaroxolyn 2.5 Mg Tablet] 2.5 mg PO Q2D@2200 12/12/17 Morphine Sulfate [Morphine Ir 15 Mg Tablet] 15 mg PO Q6HP PRN MDD 4x day Spironolactone [Aldactone 25 mg Tablet] 12.5 mg PO DAILY 12/12/17 Warfarin Sodium [Coumadin 7.5 mg Tablet] 7.5 mg PO QHS MDD STOPPED 04/30/18 Torsemide [Demadex] 20 mg PO DAILY 04/30/18 Allopurinol [Zyloprim 300 mg Tablet] 300 mg PO Q12 05/01/18 Alprazolam [Xanax 0.5 mg Tablet] 0.5 mg PO DAILYP PRN 05/01/18 Amiodarone HCl [Cordarone 200 mg Tablet] 200 mg PO Q12 05/01/18 Gabapentin [Neurontin 400 mg Capsule] 800 mg PO Q12 05/01/18 Insulin Glargine,Hum.rec.anlog [Lantus Solostar] 0 unit SQ PRN PRN MDD HAS NOT USED IN A WHILE 05/01/18 Potassium Chloride [Klor-Con 10 Meq Capsule ER] 10 meq PO DAILY 05/01/18 Promethazine HCl 25 mg PO DAILYP PRN 05/01/18 Ramipril [Altace 2.5 mg Capsule] 2.5 mg PO DAILY 05/01/18 Tamsulosin HCl [Flomax 0.4 mg Cap.sr] 0.4 mg PO DAILY 05/01/18 Warfarin Sodium [Coumadin] 6 mg PO QHS MDD DOSE CHANGED 04/30/18 FROM 7.5MG Transfer Medications: Current Medications Acetaminophen (Tylenol 325 Mg Tablet) 650 mg PO Q4HP PRN PRN Reason: FOR PAIN OR TEMP Stop: 05/31/18 00:06 Al Hydrox/Mg Hydrox/Simethicone (Maalox Plus Susp 30 Udcup) 30 ml PO Q6HP PRN PRN Reason: HEARTBURN Stop: 05/31/18 00:06 Norepinephrine Bitartrate 4 mg (/ Dextrose) 250 mls @ 0 mls/hr IV CONTINUOUS PRN; Protocol; Titrate PRN Reason: THIS MED IS NOT "PRN" Stop: 05/31/18 01:12 Last Admin: 05/01/18 15:40 Dose: 3.5 mcg/min, 13.12 mls/hr Piperacillin Sod/Tazobactam (Sod 4.5 gm/ Sodium Chloride) 100 mls @ 200 mls/hr IV Q6A DIANNA Stop: 05/08/18 14:59 Last Infusion: 05/01/18 16:01 Dose: Infused Vancomycin HCl 1,000 mg/ (Dextrose) 250 mls @ 166.667 mls/hr IV Q12A DIANNA Stop: 05/09/18 05:59 Metoclopramide HCl (Reglan Inj/Pf 10 Mg/2 Ml Sdv) 10 mg IV Q6 DIANNA Stop: 05/31/18 00:00 Last Admin: 05/01/18 18:34 Dose: Not Given Promethazine HCl (Phenergan Inj 25 Mg/1 Ml Vial) 25 mg IV Q4HP PRN PRN Reason: FOR NAUSEA/VOMITING Stop: 05/31/18 00:06 Sodium Chloride (Saline Flush 2.5 Ml Monoject Prefil Syrin) 2.5 ml IV Q8 DIANNA Stop: 05/31/18 05:59 Last Admin: 05/01/18 15:31 Dose: 2.5 ml - Allergies Allergies/Adverse Reactions: Iodinated Contrast- Oral and IV Dye [IV Dye, Iodine Containing] Allergy ( Verified 04/30/18 17:13) Anaphylaxis iodine Allergy (Verified 04/30/18 17:13) Shellfish * [Shellfish] Allergy (Verified 04/30/18 17:13) Hospital Course Hospital Course: KEAGAN J ROWAND is a 48 year old maleWith medical history of coronary artery disease with 2 stents, cardiomyopathy with ejection fraction of 17%, status post AICD, endocarditis. Presented to the emergency department complaining of persistent nausea, nonbloody vomiting, abdominal pain, chest pressure, in the middle of the chest, 7-1/2 over 10 intensity, associated with shortness of breath, also pressure in the left upper extremity. Patient has several admissions to our facility and usually he is transferred to [place] as per the complexity of his cardiac disease. He asked his to [place] but she brought him here In the ED patient still complains of chest pressure 3/10 in intensity feel nauseous. D/W Dr Ahuja in ED, he agrees to call [place] cardiology, spoke witk Dr. Brooks who treated the patient before and accepted transfer under Dr. Gabe Jimenez care in CCU bed, unfortunately they are not going to have a bit ready until afternoon. The patient was not initiated on nitroglycerin drip after was ordered as his blood pressure has dropped to 70 over 40s, I placed an order to discontinue the nitroglycerin infusion and initiate him on levophed if necessary. I am changing the patient to ICU. In addition given several doses of morphine IV and Zofran. Patient is on Coumadin with therapeutic INR. I contacted the hospital and talked to the cardiology cone operator and I told her GNU C of patient being transferred to [facility] however they stated they will get the patient is from is they have a bed available. In the morning patient was becoming hypotensive and lactic acid was rising and patient was deemed to have developing sepsis he was started on Vanco and Zosyn. However patient could not be volume resuscitated due to very low ejection fraction and volume overload. In the morning he was having mild active chest pain however over the course of the day he denied having any chest pain. Trouble has been trended and initial troponin was 0.056, 0.067, 0.078, 0.068, 0.067 order Physical Exam Vital Signs: Temp Pulse Resp BP Pulse Ox 97.9 F 61 10 L 95/75 L 98 05/01/18 19:30 05/01/18 16:00 05/01/18 18:08 05/01/18 18:08 05/01/18 18:08 Intake & Output 04/30/18 05/01/18 05/02/18 06:59 06:59 06:59 Intake Total 367 1513 Balance 367 1513 General appearance: PRESENT: no acute distress, well-developed, well-nourished Head exam: PRESENT: atraumatic, normocephalic Eye exam: PRESENT: conjunctiva pink, EOMI, PERRLA. ABSENT: scleral icterus Ear exam: PRESENT: normal external ear exam Mouth exam: PRESENT: moist, tongue midline Neck exam: ABSENT: carotid bruit, JVD, lymphadenopathy, thyromegaly Respiratory exam: PRESENT: clear to auscultation meena. ABSENT: rales, rhonchi, wheezes Cardiovascular exam: PRESENT: RRR. ABSENT: diastolic murmur, rubs, systolic murmur Pulses: PRESENT: normal dorsalis pedis pul Vascular exam: PRESENT: normal capillary refill GI/Abdominal exam: PRESENT: normal bowel sounds, soft. ABSENT: distended, guarding, mass, organolmegaly, rebound, tenderness Rectal exam: PRESENT: deferred Extremities exam: PRESENT: full ROM, +1 edema. ABSENT: calf tenderness, clubbing, pedal edema Neurological exam: PRESENT: alert, awake, oriented to person, oriented to place , oriented to time, oriented to situation, CN II-XII grossly intact. ABSENT: motor sensory deficit Psychiatric exam: PRESENT: appropriate affect, normal mood. ABSENT: homicidal ideation, suicidal ideation Skin exam: PRESENT: dry, intact, warm. ABSENT: cyanosis, rash Results Laboratory Results: 05/01/18 07:09 05/01/18 07:09 04/30/18 04/30/18 05/01/18 23:00 23:00 03:31 WBC RBC Hgb Hct MCV MCH MCHC RDW Plt Count Seg Neutrophils % Lymphocytes % Monocytes % Eosinophils % Basophils % Absolute Neutrophils Absolute Lymphocytes Absolute Monocytes Absolute Eosinophils Absolute Basophils Sodium Potassium Chloride Carbon Dioxide Anion Gap BUN Creatinine Est GFR ( Amer) Est GFR (Non-Af Amer) Glucose Lactic Acid Cancelled 2.9 H 4.3 H Calcium Total Bilirubin AST ALT Alkaline Phosphatase Total Protein Albumin 05/01/18 05/01/18 05/01/18 07:09 07:09 12:28 WBC 17.4 H RBC 4.29 L Hgb 11.5 L Hct 36.2 L MCV 84 MCH 26.7 L MCHC 31.6 L RDW 18.1 H Plt Count 327 Seg Neutrophils % Not Reportable Lymphocytes % Not Reportable Monocytes % Not Reportable Eosinophils % Not Reportable Basophils % Not Reportable Absolute Neutrophils Not Reportable Absolute Lymphocytes Not Reportable Absolute Monocytes Not Reportable Absolute Eosinophils Not Reportable Absolute Basophils Not Reportable Sodium 135.7 L Potassium 4.7 D Chloride 95 L Carbon Dioxide 22 Anion Gap 19 BUN 35 H Creatinine 2.58 H Est GFR ( Amer) 32 L Est GFR (Non-Af Amer) 27 L Glucose 153 H Lactic Acid 3.6 H Calcium 9.1 Total Bilirubin 3.8 H AST 2850 H ALT 1802 H Alkaline Phosphatase 115 Total Protein 7.3 Albumin 4.1 05/01/18 17:02 WBC RBC Hgb Hct MCV MCH MCHC RDW Plt Count Seg Neutrophils % Lymphocytes % Monocytes % Eosinophils % Basophils % Absolute Neutrophils Absolute Lymphocytes Absolute Monocytes Absolute Eosinophils Absolute Basophils Sodium Potassium Chloride Carbon Dioxide Anion Gap BUN Creatinine Est GFR ( Amer) Est GFR (Non-Af Amer) Glucose Lactic Acid 3.4 H Calcium Total Bilirubin AST ALT Alkaline Phosphatase Total Protein Albumin 05/01/18 05/01/18 05/01/18 00:37 00:37 07:09 Creatine Kinase 87 104 CK-MB (CK-2) 1.31 Troponin I 0.064 05/01/18 05/01/18 05/01/18 07:09 12:28 12:28 Creatine Kinase 127 CK-MB (CK-2) 1.25 1.85 Troponin I 0.078 0.068 05/01/18 17:02 Creatine Kinase CK-MB (CK-2) Troponin I 0.067 Impressions: Chest X-Ray 04/30/18 17:37 IMPRESSION: Stable radiographic appearance of the chest demonstrating cardiomegaly without findings of overt failure. Abdomen/Pelvis CT 04/30/18 18:16 IMPRESSION: 1. There is a small amount of ascites. 2. Superior endplate compression changes at L2 of uncertain age. 3. Cholelithiasis.
--- NOTE | 2018-05-01 23:40 | PDOC CONSULTATION ---
Consultation Consult Date: 05/01/18 Attending physician:: CECILLE LONDONO Consult reason:: Shortness of breath History of Present Illness Admission Date/PCP: 04/30/18 22:31 STEPHANIA REDMAN PA-C Patient complains of: Shortness of breath History of Present Illness: Devonte RODARTE is a 48 year old maleWith medical history of coronary artery disease with 2 stents, cardiomyopathy with ejection fraction of 17%, status post AICD, endocarditis. Presented to the emergency department complaining of persistent nausea, nonbloody vomiting, abdominal pain, chest pressure, in the middle of the chest, 7-1/2 over 10 intensity, associated with shortness of breath, also pressure in the left upper extremity. Patient has several admissions to our facility and usually he is transferred to [place] as per the complexity of his cardiac disease. He asked his to [place] but she brought him here In the ED patient still complains of chest pressure 3/10 in intensity feel nauseous. D/W Dr Ahuja in ED, he agrees to call [place] [facility], spoke witk Dr. Brooks who treated the patient before and accepted transfer under Dr. Gabe Jimenez care in CCU bed, unfortunately they are not going to have a bit ready until afternoon. The patient was not initiated on nitroglycerin drip after was ordered as his blood pressure has dropped to 70 over 40s, I placed an order to discontinue the nitroglycerin infusion and initiate him on levophed if necessary. I am changing the patient to ICU. In addition given several doses of morphine IV and Zofran. Patient is on Coumadin with therapeutic INR. This history obtained by the hospitalist was reviewed. When I saw the patient, he was noted to be somewhat lethargic on BiPAP therapy, therefore unwilling to participate in much conversation. Patient was noted to be on small dose of Levophed drip but was noted to be maintaining stable vitals. Patient chart was reviewed and it seems patient has very complicated cardiac and other history therefore agree with transfer to tertiary care for further management. This was related to hospitalist, patient nurse. Apparently there would have a bed for the patient tomorrow. We just have to maintain his vitals overnight. Patient previous 2D echocardiogram shows severely depressed LVEF. Past Medical History Cardiac Medical History: Reports: Atrial Fibrillation, Congestive Heart Failure , Coronary Artery Disease, Myocardial Infarction - 2014, Hyperlipidema, Hypertension Pulmonary Medical History: Denies: Tuberculosis Neurological Medical History: Reports: Migraine Endocrine Medical History: Reports: Diabetes Mellitus Type 2 Musculoskeltal Medical History: Reports: Arthritis Psychiatric Medical History: Reports: Depression Past Surgical History Past Surgical History: Reports: Cardiac Catheterization - x 10-12, Internal Defibrillator, Orthopedic Surgery - L knee x2; R knee x13, Pacemaker Social History Information Source: Patient Lives with: Family Smoking Status: Never Smoker Frequency of Alcohol Use: Rare Hx Recreational Drug Use: No Drugs: None Hx Prescription Drug Abuse: No - Advance Directive Resuscitation Status: Full Code Surrogate healthcare decision maker:: Patient's is the surrogate decision-maker Family History Family History: Reviewed & Not Pertinent, CAD - significant family history of CAD, Other - Father: [place] and CHF; Brother: heart disease; CHF Parental Family History Reviewed: Yes Children Family History Reviewed: Yes Sibling(s) Family History Reviewed.: Yes Medication/Allergy Home Medications: Diazepam [Valium] 10 mg PO DAILYP PRN 12/12/17 Glimepiride [Amaryl 4 mg Tablet] 4 mg PO BID 12/12/17 Metolazone [Zaroxolyn 2.5 Mg Tablet] 2.5 mg PO Q2D@2200 12/12/17 Morphine Sulfate [Morphine Ir 15 Mg Tablet] 15 mg PO Q6HP PRN MDD 4x day Spironolactone [Aldactone 25 mg Tablet] 12.5 mg PO DAILY 12/12/17 Warfarin Sodium [Coumadin 7.5 mg Tablet] 7.5 mg PO QHS MDD STOPPED 04/30/18 Torsemide [Demadex] 20 mg PO DAILY 04/30/18 Allopurinol [Zyloprim 300 mg Tablet] 300 mg PO Q12 05/01/18 Alprazolam [Xanax 0.5 mg Tablet] 0.5 mg PO DAILYP PRN 05/01/18 Amiodarone HCl [Cordarone 200 mg Tablet] 200 mg PO Q12 05/01/18 Gabapentin [Neurontin 400 mg Capsule] 800 mg PO Q12 05/01/18 Insulin Glargine,Hum.rec.anlog [Lantus Solostar] 0 unit SQ PRN PRN MDD HAS NOT USED IN A WHILE 05/01/18 Potassium Chloride [Klor-Con 10 Meq Capsule ER] 10 meq PO DAILY 05/01/18 Promethazine HCl 25 mg PO DAILYP PRN 05/01/18 Ramipril [Altace 2.5 mg Capsule] 2.5 mg PO DAILY 05/01/18 Tamsulosin HCl [Flomax 0.4 mg Cap.sr] 0.4 mg PO DAILY 05/01/18 Warfarin Sodium [Coumadin] 6 mg PO QHS MDD DOSE CHANGED 04/30/18 FROM 7.5MG Allergies/Adverse Reactions: Iodinated Contrast- Oral and IV Dye [IV Dye, Iodine Containing] Allergy ( Verified 04/30/18 17:13) Anaphylaxis iodine Allergy (Verified 04/30/18 17:13) Shellfish * [Shellfish] Allergy (Verified 04/30/18 17:13) Review of Systems ROS unobtainable: Other - Patient on bilevel therapy and noted to be somewhat lethargic, easily awakens but did not want to talk. Did answer to a few direct questions. Please see HPI for that. Physical Exam Vital Signs: Temp Pulse Resp BP Pulse Ox 98.1 F 61 15 90/64 L 100 05/01/18 23:21 05/01/18 16:00 05/01/18 22:38 05/01/18 22:31 05/01/18 22:38 Intake & Output 04/30/18 05/01/18 05/02/18 06:59 06:59 06:59 Intake Total 367 1513 Balance 367 1513 Exam: GENERAL: well-nourished and in no acute distress. Alert and oriented x3 HEAD: Atraumatic, normocephalic. EYES: Pupils equal round and reactive to light, extraocular movements intact, sclera anicteric, conjunctiva are normal. ENT: TMs normal, nares patent, oropharynx clear without exudates. Moist mucous membranes. No oral ulcerations or bleeding gums noted NECK: supple without lymphadenopathy. Trachea is central. No cervical or axillary lymphadenopathy noted. Carotids are 2+, JVD 10-12 cm LUNGS: Respiration seems nonlabored, no significant accessory muscle action noted. Bibasilar fine crackles noted no wheezes rales or rhonchi noted. No significant dullness noted on percussion. CHEST: Palpation of the chest wall shows no significant chest wall tenderness. 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 ABDOMEN: Soft, no significant tenderness appreciated, normoactive bowel sounds. No guarding, no rebound. No rigidity noted . No masses appreciated. EXTREMITIES: Pedal pulses are 1-2+, no calf tenderness noted. No clubbing or cyanosis. 2+ chronic pedal edema noted NEUROLOGICAL: Focused neurological exam showed no significant neurologic deficit. Normal speech, no focal weakness appreciated. PSYCH: Normal mood, normal affect. Judgment and insight within normal limits. SKIN: No significant ecchymosis, skin is noted to be warm. MUSCULOSKELETAL EXAM: No significant acute joint swelling noted. Results Laboratory Results: 05/01/18 07:09 05/01/18 07:09 05/01/18 05/01/18 05/01/18 03:31 07:09 07:09 WBC 17.4 H RBC 4.29 L Hgb 11.5 L Hct 36.2 L MCV 84 MCH 26.7 L MCHC 31.6 L RDW 18.1 H Plt Count 327 Seg Neutrophils % Not Reportable Lymphocytes % Not Reportable Monocytes % Not Reportable Eosinophils % Not Reportable Basophils % Not Reportable Absolute Neutrophils Not Reportable Absolute Lymphocytes Not Reportable Absolute Monocytes Not Reportable Absolute Eosinophils Not Reportable Absolute Basophils Not Reportable Sodium 135.7 L Potassium 4.7 D Chloride 95 L Carbon Dioxide 22 Anion Gap 19 BUN 35 H Creatinine 2.58 H Est GFR ( Amer) 32 L Est GFR (Non-Af Amer) 27 L Glucose 153 H Lactic Acid 4.3 H Calcium 9.1 Total Bilirubin 3.8 H AST 2850 H ALT 1802 H Alkaline Phosphatase 115 Total Protein 7.3 Albumin 4.1 05/01/18 05/01/18 05/01/18 12:28 17:02 21:45 WBC RBC Hgb Hct MCV MCH MCHC RDW Plt Count Seg Neutrophils % Lymphocytes % Monocytes % Eosinophils % Basophils % Absolute Neutrophils Absolute Lymphocytes Absolute Monocytes Absolute Eosinophils Absolute Basophils Sodium Potassium Chloride Carbon Dioxide Anion Gap BUN Creatinine Est GFR ( Amer) Est GFR (Non-Af Amer) Glucose Lactic Acid 3.6 H 3.4 H 3.1 H Calcium Total Bilirubin AST ALT Alkaline Phosphatase Total Protein Albumin 05/01/18 05/01/18 05/01/18 00:37 00:37 07:09 Creatine Kinase 87 104 CK-MB (CK-2) 1.31 Troponin I 0.064 05/01/18 05/01/18 05/01/18 07:09 12:28 12:28 Creatine Kinase 127 CK-MB (CK-2) 1.25 1.85 Troponin I 0.078 0.068 05/01/18 17:02 Creatine Kinase CK-MB (CK-2) Troponin I 0.067 EKG Comments: Mild tachycardia and ventricular paced rhythm. Impressions: Chest X-Ray 04/30/18 17:37 IMPRESSION: Stable radiographic appearance of the chest demonstrating cardiomegaly without findings of overt failure. Abdomen/Pelvis CT 04/30/18 18:16 IMPRESSION: 1. There is a small amount of ascites. 2. Superior endplate compression changes at L2 of uncertain age. 3. Cholelithiasis. Assessment & Plan - Diagnosis (1) Hypotension Qualifiers: Hypotension type: unspecified hypotension type Qualified Code(s): I95.9 - Hypotension, unspecified Is this a current diagnosis for this admission?: Yes (2) Cardiomyopathy Qualifiers: Cardiomyopathy type: unspecified Qualified Code(s): I42.9 - Cardiomyopathy , unspecified Is this a current diagnosis for this admission?: Yes (3) Chronic atrial fibrillation Is this a current diagnosis for this admission?: Yes (4) Coronary artery disease Qualifiers: Coronary Disease-Associated Artery/Lesion type: [place] artery [place] vs. transplanted heart: [place] heart Associated angina: angina presence unspecified Qualified Code(s): I25.10 - Atherosclerotic heart disease of [place] coronary artery without angina pectoris Is this a current diagnosis for this admission?: Yes (5) Diabetes Qualifiers: Diabetes mellitus type: type 2 Diabetes mellitus senior care insulin use: with senior care use Diabetes mellitus complication status: with hyperglycemia Qualified Code(s): E11.65 - Type 2 diabetes mellitus with hyperglycemia; Z79.4 - ferry terminal supervisor (current) use of insulin; Z79.4 - ferry terminal supervisor (current) use of insulin; Z79.4 - ferry terminal supervisor (current) use of insulin; Z79.4 - ferry terminal supervisor (current ) use of insulin Is this a current diagnosis for this admission?: Yes (6) Hypertension Qualifiers: Hypertension type: essential hypertension Qualified Code(s): I10 - Essential (primary) hypertension Is this a current diagnosis for this admission?: Yes (7) Sleep apnea syndrome Qualifiers: Sleep apnea type: unspecified type Qualified Code(s): G47.30 - Sleep apnea , unspecified Is this a current diagnosis for this admission?: Yes (8) Status post internal cardiac defibrillator procedure Is this a current diagnosis for this admission?: Yes (9) CHF (congestive heart failure) Is this a current diagnosis for this admission?: Yes - Notes Notes: Patient noted to have severe LV systolic dysfunction on prior echocardiogram. Agree that given his poor LVEF, and multiple comorbid issues, tertiary care management at [facility] is advisable and it transfer is being arranged. Hypotension: There is a significant component of cardiogenic hypotension. Patient could have other causes such as sepsis, CO2 retention, medication related. At this point agree with Levophed drip. Do not feel patient needs any intra-aortic balloon pump or other support device at this point but may become necessary. Cardiomyopathy: This is chronic with chronically low EF. Patient being managed at [facility]. Chronic atrial fibrillation: Managed with rate control and chronic anticoagulation. Heart rate currently seems adequately controlled. Coronary artery disease: Cardiac enzymes so far has been negative. EKG is uninterpretable. Management options somewhat limited in this institution and given patient's hypotension. Diabetes: Recommend good control of blood sugar. Hypertension: Currently patient is actually hypotensive needing vasopressors. Sleep apnea syndrome: Currently on bilevel therapy. Will have low threshold for intubation and artificial ventilation. CHF: Seems to be just mildly fluid overloaded on a chronic basis. At this time would not use IV diuretics if at all feasible. - Time Time Spent: 30 to 50 Minutes - CODE STATUS was discussed, patient remains full code. Surrogate decision-maker unchanged. Multiple medical problems were addressed. More than 50% of the time spent coordinating care, discussing management plans with involved caregivers. Management plans discussed with involved personnels. Medical decision making was of moderate to high complexity , patient's has multiple comorbidities.
[2018-05-02] MEDS ORDERED: NOREPINEPHRINE BITARTRATE INJ/PF 4 MG/4 ML SDV IV ONE ×2 (01:16→03:25)
[2018-05-02] MEDS: METOCLOPRAMIDE HCL INJ/PF 10 MG/2 ML SDV IV SCH ×2 (01:21→05:54)
[2018-05-02] MEDS: DEXTROSE 5%-WATER 250 ML with NOREPINEPHRINE BITARTRATE 4 MG IV PRN ×4 (01:22→03:30)
[2018-05-02 04:03] LABS: HEMATOCRIT 38.3 % (37.9-51.0); MEAN CORPUSCULAR HEMOGLOBIN 25.9 pg (27.0-33.4); MEAN CORPUSCULAR HGB CONC 31.5 g/dL (32.0-36.0); MEAN CORPUSCULAR VOLUME 82 fl (80-97); PLATELET COUNT 334 10^3/uL (150-450); RED BLOOD COUNT 4.65 10^6/uL (4.35-5.55); RED CELL DISTRIBUTION WIDTH 18.3 % (11.5-14.0); WHITE BLOOD COUNT 20.3 10^3/uL (4.0-10.5)
[2018-05-02 04:21] LABS: ALBUMIN 3.8 g/dL (3.5-5.0); ALKALINE PHOSPHATASE 98 U/L (38-126); BILIRUBIN,DIRECT 2.4 mg/dL (0.0-0.4); BILIRUBIN,TOTAL 3.6 mg/dL (0.2-1.3); BLOOD UREA NITROGEN 50 mg/dL (7-20); CALCIUM 8.6 mg/dL (8.4-10.2); CARBON DIOXIDE 18 mmol/L (22-30); CHLORIDE 92 mmol/L (98-107); GLUCOSE 168 mg/dL (75-110); POTASSIUM 4.6 mmol/L (3.6-5.0); SODIUM 130.4 mmol/L (137-145); TOTAL PROTEIN 6.8 g/dL (6.3-8.2)
[2018-05-02 04:31] LABS: PROTHROMBIN TIME 56.6 SEC (11.4-15.4)
[2018-05-02 04:32] LABS: INTERNATIONAL RATION (INR) 6.06
[2018-05-02 04:34] LABS: ABSOLUTE LYMPHOCYTES# (MANUAL) 0.8 10^3/uL (0.5-4.7); ABSOLUTE MONOCYTES # (MANUAL) 1.6 10^3/uL (0.1-1.4); ABSOLUTE NEUTROPHILS# (MANUAL) 17.9 10^3/uL (1.7-8.2); BAND NEUTROPHILS % (MANUAL) 1 % (3-5); BASOPHILS % (MANUAL) 0 % (0-2); EOSINOPHILS % (MANUAL) 0 % (0-6); LYMPHOCYTES % (MANUAL) 3 % (13-45); MONOCYTES % (MANUAL) 8 % (3-13); NUCLEATED RED BLOOD CELLS 1 /100 WBC (0); SEGMENTED NEUTROPHILS % (MAN) 87 % (42-78); TOTAL CELLS COUNTED 100
[2018-05-02 04:36] LABS: ANISOCYTOSIS 2+; OVALOCYTES SLIGHT; PLATELET COMMENT ADEQUATE; POIKILOCYTOSIS SLIGHT; POLYCHROMASIA 1+; TEAR DROP CELLS SLIGHT; TOXIC GRANULATION SLIGHT; TOXIC VACUOLATION PRESENT
[2018-05-02] MEDS: PIPERACILLIN SODIUM/TAZOBACTAM 4.5 GM in NORMAL SALINE 100 ML IV SCH ×2 (05:06→08:35)
[2018-05-02 05:15] LABS: ALANINE AMINOTRANSFERASE 2818 U/L (21-72); ASPARTATE AMINO TRANSFERASE 3848 U/L (17-59)
[2018-05-02] MEDS ORDERED: PHYTONADIONE 5 MG TABLET PO ONE (05:15)
[2018-05-02 05:16] LABS: ANION GAP 20 (5-19)
[2018-05-02] MEDS ORDERED: VANCOMYCIN HCL 1,000 MG in DEXTROSE 5%-WATER 250 ML IV SCH (06:00)
[2018-05-02 06:38] LABS: ARTERIAL BLOOD BASE EXCESS -4.2 mmol/L; ARTERIAL BLOOD H2CO3 1.11 mmol/L (1.05-1.35); ARTERIAL BLOOD HCO3 20.7 mmol/L (20-24); ARTERIAL BLOOD O2 SATURATION 97.5 % (94-98); ARTERIAL BLOOD PH 7.37 (7.35-7.45); ARTERIAL BLOOD TOTAL CO2 21.8 mmol/L (23-27)
[2018-05-02 06:40] LABS: ARTERIAL BLOOD FIO2 5L
[2018-05-02 09:25] VITALS: BP 104/81
--- NOTE | 2018-05-02 22:46 | PDOC PROGRESS REPORT ---
Subjective Progress Note for:: 05/02/18 Subjective:: Seen in the morning prior to transfer. He was noted to be stable with stable vitals transferred to tertiary care for further management. Patient does have very poor cardiovascular status. Reason For Visit: CHEST PAIN, CAD, HYPOTENSION Physical Exam Vital Signs: Temp Pulse Resp BP Pulse Ox 99.0 F 72 13 104/81 99 05/02/18 09:17 05/02/18 09:24 05/02/18 09:17 05/02/18 09:17 05/02/18 09:17 Exam: GENERAL: well-nourished and in no acute distress. Noted to be sleeping when I rounded on. Patient had bilevel therapy on and looked comfortable. HEAD: Atraumatic, normocephalic. EYES: Pupils equal round and reactive to light, extraocular movements intact, sclera anicteric, conjunctiva are normal. ENT: TMs normal, nares patent, oropharynx clear without exudates. Moist mucous membranes. No oral ulcerations or bleeding gums noted NECK: supple without lymphadenopathy. Trachea is central. No cervical or axillary lymphadenopathy noted. Carotids are 2+, JVD 10-12 cm LUNGS: Respiration seems nonlabored, no significant accessory muscle action noted. Bibasilar fine crackles noted.. No wheezes rales or rhonchi noted. No significant dullness noted on percussion. CHEST: Palpation of the chest wall shows no significant chest wall tenderness. 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 ABDOMEN: Soft, no significant tenderness appreciated, normoactive bowel sounds. No guarding, no rebound. No rigidity noted . No masses appreciated. EXTREMITIES: Pedal pulses are 1-2+, no calf tenderness noted. No clubbing or cyanosis. 2+ pedal edema noted NEUROLOGICAL: Focused neurological exam showed no significant neurologic deficit. Normal speech, no focal weakness appreciated. PSYCH: Normal mood, normal affect. Judgment and insight within normal limits. SKIN: No significant ecchymosis, skin is noted to be warm. MUSCULOSKELETAL EXAM: No significant acute joint swelling noted. Results EKG Comments: Ventricular paced rhythm. Underlying atrial rhythm is atrial fibrillation. Impressions: Chest X-Ray 04/30/18 17:37 IMPRESSION: Stable radiographic appearance of the chest demonstrating cardiomegaly without findings of overt failure. Abdomen/Pelvis CT 04/30/18 18:16 IMPRESSION: 1. There is a small amount of ascites. 2. Superior endplate compression changes at L2 of uncertain age. 3. Cholelithiasis. Assessment & Plan - Diagnosis (1) Cardiomyopathy Qualifiers: Cardiomyopathy type: unspecified Qualified Code(s): I42.9 - Cardiomyopathy , unspecified Is this a current diagnosis for this admission?: Yes (2) Chronic atrial fibrillation Is this a current diagnosis for this admission?: Yes (3) Chronic systolic CHF (congestive heart failure) Is this a current diagnosis for this admission?: Yes (4) Coronary artery disease Qualifiers: Coronary Disease-Associated Artery/Lesion type: [place] artery [place] vs. 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 use: with group home use Diabetes mellitus complication status: with hyperglycemia Qualified Code(s): E11.65 - Type 2 diabetes mellitus with hyperglycemia; Z79.4 - care home (current) use of insulin; Z79.4 - exterminator helper (current) use of insulin; Z79.4 - care home (current) use of insulin; Z79.4 - exterminator helper (current ) use of insulin Is this a current diagnosis for this admission?: Yes (6) Hypertension Qualifiers: Hypertension type: essential hypertension Qualified Code(s): I10 - Essential (primary) hypertension Is this a current diagnosis for this admission?: Yes (7) Hypotension Qualifiers: Hypotension type: unspecified hypotension type Qualified Code(s): I95.9 - Hypotension, unspecified Is this a current diagnosis for this admission?: Yes (8) Status post internal cardiac defibrillator procedure Is this a current diagnosis for this admission?: Yes - Notes Notes: Patient has numerous significant problems. Agree that tertiary care transfer is best inpatient benefit. We just maintain vitals. Further plan will be per [facility]. Patient of course will benefit from gradual weight loss, risk factor modification. If he wishes to follow-up with her local bow maker gift wrapping will be happy to provide that services. Patient was examined and felt that it was in patient's best interest transfer to tertiary care and patient was noted to be stable from transfer aspect - Time Time with patient: 15-25 minutes - More than 50% of the time spent coordinating care, discussing management plans with involved caregivers. Management plans discussed with involved personnels. Medical decision making was of moderate to high complexity, patient's has multiple comorbidities. Medications reviewed and adjusted accordingly: Yes
== END 2018-05-02 10:00 | disposition short-term general hospital (02) | DRG 292 ==
LOC: ER 17:12 → EH 22:31 → UNDOADMOB 22:31 → ICU 05-01 12:22 → OBSVTOIN 05-02 09:54
PROVIDERS: ADMIT Internal Medicine; ATTEND Internal Medicine
PROC: 5A09357 Assistance with Respiratory Ventilation, Less than 24 Consecutive Hours, Continuous Positive Airway Pressure (ICD-10-PCS; principal; 2018-05-02)
PROC: 5A09357 Assistance with Respiratory Ventilation, Less than 24 Consecutive Hours, Continuous Positive Airway Pressure (ICD-10-PCS; 2018-05-02)
DX: I11.0 Hypertensive heart disease with heart failure (principal); Z68.41 Body mass index [BMI] 40.0-44.9, adult; R18.8 Other ascites; E66.01 Morbid (severe) obesity due to excess calories; I50.22 Chronic systolic (congestive) heart failure; I95.9 Hypotension, unspecified; I48.2 Chronic atrial fibrillation; I25.10 Atherosclerotic heart disease of native coronary artery without angina pectoris; K80.20 Calculus of gallbladder without cholecystitis without obstruction; E78.00 Pure hypercholesterolemia, unspecified; G43.909 Migraine, unspecified, not intractable, without status migrainosus; M19.90 Unspecified osteoarthritis, unspecified site; I42.9 Cardiomyopathy, unspecified; E11.65 Type 2 diabetes mellitus with hyperglycemia; G47.30 Sleep apnea, unspecified; F32.9 Major depressive disorder, single episode, unspecified; I25.2 Old myocardial infarction; Z79.4 Long term (current) use of insulin; Z79.899 Other long term (current) drug therapy; Z79.01 Long term (current) use of anticoagulants; Z91.041 Radiographic dye allergy status; Z91.013 Allergy to seafood; Z95.5 Presence of coronary angioplasty implant and graft; Z95.810 Presence of automatic (implantable) cardiac defibrillator; Z82.49 Family history of ischemic heart disease and other diseases of the circulatory system
CPT/HCPCS: 36415; 71045; 74176; 80053; 82550; 82553; 82803; 82962; 83605; 83690; 83735; 83880; 84484; 85025; 85610; 85730; 87040; 93005; 93010; 94660; G0378; J2270; J2405; J2543; J2550; J2765; J3370; J3475; J3490; J7050; J7060

== ENCOUNTER 2018-06-14 11:56 | Emergency (ER) | payer MEDICARE, MEDICAID ==
[2018-06-14] MEDS ORDERED: NORMAL SALINE 500 ML IV ONE (12:20)
--- NOTE | 2018-06-14 12:21 | ER Document Report ---
ED Cardiac - General Chief Complaint: Chest Pain Stated Complaint: BLOOD PRESSURE ISSUE Time Seen by Provider: 06/14/18 12:11 Mode of Arrival: Ambulatory TRAVEL OUTSIDE OF THE U.S. IN LAST 30 DAYS: No - HPI Patient complains to provider of: Other - This 48-year-old gentleman with a history of dilated cardiomyopathy and LVAD implantation presents today for vague lightheadedness and a sensation of potentially being dehydrated. 2 weeks ago he had his LVAD placed at [facility], thereafter he had been doing well postoperatively had gone home and was feeling okay. He is continued to take torsemide as his diuretic as well as warfarin for his blood thinning however today he began to have some episodes of lightheadedness that have felt like previous times when his blood pressure was a bit lower. He denies any chest pain, he denies any fevers or chills, denies any abdominal pain diarrhea constipation or dysuria. He did take all of his normal blood pressure medications this morning. - Related Data Allergies/Adverse Reactions: Iodinated Contrast- Oral and IV Dye [IV Dye, Iodine Containing] Allergy ( Verified 06/14/18 12:35) Anaphylaxis iodine Allergy (Verified 06/14/18 12:35) Shellfish * [Shellfish] Allergy (Verified 06/14/18 12:35) Past Medical History - General Information source: Patient - Social History Smoking Status: Unknown if Ever Smoked Family History: Reviewed & Not Pertinent, CAD - significant family history of CAD, Other - Father: [place] and CHF; Brother: heart disease; CHF - Past Medical History Cardiac Medical History: Reports: Hx Atrial Fibrillation, Hx Congestive Heart Failure, Hx Coronary Artery Disease, Hx Heart Attack - 2014, Hx Hypercholesterolemia, Hx Hypertension Pulmonary Medical History: Denies: Hx Tuberculosis Neurological Medical History: Reports: Hx Migraine Endocrine Medical History: Reports: Hx Diabetes Mellitus Type 2 Renal/ Medical History: Reports: Hx Kidney Stones. Denies: Hx Peritoneal Dialysis Musculoskeletal Medical History: Reports Hx Arthritis, Reports Hx Musculoskeletal Deformity, Reports Hx Musculoskeletal Trauma Psychiatric Medical History: Reports: Hx Depression Traumatic Medical History: Reports: Hx Fractures Past Surgical History: Reports: Hx Cardiac Catheterization - x 10-12, Hx Cardiac Surgery - pacer/defib; stents x 2, Hx Internal Defibrillator, Hx Orthopedic Surgery - L knee x2; R knee x13, Hx Pacemaker - Immunizations Immunizations up to date: Yes Hx Diphtheria, Pertussis, Tetanus Vaccination: Yes Hx Pneumococcal Vaccination: 07/26/12 Review of Systems - Review of Systems -: Yes All other systems reviewed and negative Physical Exam - Vital signs Vitals: Temp Pulse Resp Pulse Ox 98.7 F 100 16 100 06/14/18 12:02 06/14/18 12:02 06/14/18 12:02 06/14/18 12:02 - General General appearance: Appears well In distress: None - HEENT Head: Normocephalic Eyes: Normal Conjunctiva: Normal Cornea: Normal Extraocular movements intact: Yes Eyelashes: Normal Pupils: PERRL - Respiratory Respiratory status: No respiratory distress Chest status: Other - Large well approximated sternotomy scar Breath sounds: Normal Chest palpation: Normal - Cardiovascular Rhythm: Other - Audible home Murmur: No - Abdominal Inspection: Other - LVAD implantation site along the right side, clean, Distension: No distension Bowel sounds: Normal Tenderness: Nontender Organomegaly: No organomegaly - Back Back: Normal - Extremities General upper extremity: Normal inspection, Nontender, Normal strength, Normal temperature General lower extremity: Normal inspection, Nontender, Normal strength, Normal temperature - Neurological Neuro grossly intact: Yes Cognition: Normal Orientation: AAOx4 [place] Coma Scale Eye Opening: Spontaneous [place] Coma Scale Verbal: Oriented Painter Coma Scale Motor: Obeys Commands Painter Coma Scale Total: 15 Speech: Normal Cranial nerves: Normal Motor strength normal: LUE, RUE, LLE, RLE - Psychological Associated symptoms: Normal affect Course - Re-evaluation Re-evalutation: This left ventricular assist device patient presented for sensation of dehydration. His LVAD is functioning normally. Will administer 500 mL bolus, will obtain labs. Patient does have a modest increase in his creatinine. Have talked to coordinator. Patient's symptoms improved with antiemetic as well as administration of fluids. His coordinator noted that they desire his pressure to be between 60 and 85 systolic. 06/14/18 13:22 Spoke to on-call that coordinator who noted that the patient should stop his torsemide. He should take torsemide only if he has a 3 pound weight gain in a night or 5 pounds in 1 week. Is likely that he was over diuresed and may be somewhat dehydrated. 06/14/18 17:26 We will plan for this patient to undergo discharge with return precautions and encouraged follow-up with his primary physician as previously scheduled, will call his bed coordinator in case of any worsening. - Vital Signs Vital signs: Temp Pulse Resp BP Pulse Ox 98.7 F 100 17 108/82 98 06/14/18 12:02 06/14/18 12:02 06/14/18 14:49 06/14/18 14:49 06/14/18 14:49 - Laboratory Result Diagrams: 06/14/18 12:22 06/14/18 12:22 Laboratory results interpreted by me: 06/14/18 06/14/18 06/14/18 12:22 12:22 12:22 RBC 3.85 L Hgb 11.2 L Hct 33.0 L RDW 21.7 H Lymphocytes % 9.1 L PT 21.1 H APTT 51.8 H BUN 21 H Creatinine 1.28 H Glucose 135 H Direct Bilirubin 0.5 H Alkaline Phosphatase 135 H NT-Pro-B Natriuret Pep 06/14/18 12:22 RBC Hgb Hct RDW Lymphocytes % PT APTT BUN Creatinine Glucose Direct Bilirubin Alkaline Phosphatase NT-Pro-B Natriuret Pep 1810 H Discharge - Discharge Clinical Impression: LVAD (left ventricular assist device) present Complication involving left ventricular assist device (LVAD) Qualifiers: Encounter type: initial encounter Qualified Code(s): T82.9XXA - Unspecified complication of cardiac and vascular prosthetic device, implant and graft, initial encounter Condition: Good Disposition: HOME, SELF-CARE Additional Instructions: Your seen today in the emergency department for your probable dehydration. You should stop taking her torsemide. Only take the torsemide if you gain 3 pounds and at night. Or 5 pounds in 1 week. Otherwise stop taking your torsemide. If you continue to have the symptoms you are feeling now call your LVAD coordinator. Return for worsening chest pain, lightheadedness, or other symptoms. Referrals: LOCALMD,NO [NO LOCAL MD] - Follow up as needed
[2018-06-14 12:41] LABS: ABSOLUTE BASOPHILS # (AUTO) 0.1 10^3/uL (0.0-0.2); ABSOLUTE EOSINOPHILS # (AUTO) 0.1 10^3/uL (0.0-0.6); ABSOLUTE LYMPHOCYTES (AUTO) 0.6 10^3/uL (0.5-4.7); ABSOLUTE MONOCYTES (AUTO) 0.8 10^3/uL (0.1-1.4); ABSOLUTE NEUT (AUTO) 5.1 10^3/uL (1.7-8.2); BASOPHILS % (AUTO) 0.9 % (0-2); EOSINOPHILS % (AUTO) 1.4 % (0-6); HEMOGLOBIN 11.2 g/dL (13.5-17.0); LYMPHOCYTES % (AUTO) 9.1 % (13-45); MEAN CORPUSCULAR HEMOGLOBIN 29.1 pg (27.0-33.4); MEAN CORPUSCULAR HGB CONC 33.9 g/dL (32.0-36.0); MEAN CORPUSCULAR VOLUME 86 fl (80-97); MONOCYTES % (AUTO) 11.6 % (3-13); PLATELET COUNT 339 10^3/uL (150-450); RED BLOOD COUNT 3.85 10^6/uL (4.35-5.55); RED CELL DISTRIBUTION WIDTH 21.7 % (11.5-14.0); TOTAL CELLS COUNTED % (AUTO) 100 %; WHITE BLOOD COUNT 6.6 10^3/uL (4.0-10.5)
[2018-06-14 12:42] LABS: INTERNATIONAL RATION (INR) 1.73; PROTHROMBIN TIME 21.1 SEC (11.4-15.4)
[2018-06-14 12:43] LABS: PARTIAL THROMBOPLASTIN TIME 51.8 SEC (23.5-35.8)
[2018-06-14 12:51] LABS: ALBUMIN 3.9 g/dL (3.5-5.0); ANION GAP 16 (5-19); BLOOD UREA NITROGEN 21 mg/dL (7-20); CARBON DIOXIDE 23 mmol/L (22-30); CHLORIDE 99 mmol/L (98-107); GLUCOSE 135 mg/dL (75-110); POTASSIUM 4.2 mmol/L (3.6-5.0); SODIUM 137.6 mmol/L (137-145); TOTAL PROTEIN 7.5 g/dL (6.3-8.2)
[2018-06-14 12:53] LABS: ALANINE AMINOTRANSFERASE 33 U/L (21-72); ALKALINE PHOSPHATASE 135 U/L (38-126); ASPARTATE AMINO TRANSFERASE 38 U/L (17-59); BILIRUBIN,DIRECT 0.5 mg/dL (0.0-0.4); BILIRUBIN,TOTAL 0.9 mg/dL (0.2-1.3); CALCIUM 9.4 mg/dL (8.4-10.2); LIPASE 124.6 U/L (23-300)
[2018-06-14] MEDS ORDERED: PROMETHAZINE HCL INJ 25 MG/1 ML VIAL IV ONE (13:01)
--- NOTE | 2018-06-14 13:05 | EKG REPORT ---
SEVERITY:- DEFECTIVE ECG - TECHNICALLY POOR TRACING - PLEASE REPEAT ECG! VENTRICULAR-PACED COMPLEXES : Confirmed by: Herbert Justice MD 14-Jun-2018 13:03:48
[2018-06-14 13:30] LABS: TROPONIN I 0.061 ng/mL
[2018-06-14 15:24] VITALS: BP 108/82
== END 2018-06-14 15:02 | disposition home or self-care (01) ==
LOC: ER 11:56
DX: T82.9XXA Unspecified complication of cardiac and vascular prosthetic device, implant and graft, initial encounter (principal); X58.XXXA Exposure to other specified factors, initial encounter; E86.0 Dehydration; R07.9 Chest pain, unspecified; R42 Dizziness and giddiness; I48.91 Unspecified atrial fibrillation; I50.9 Heart failure, unspecified; I11.0 Hypertensive heart disease with heart failure; E78.00 Pure hypercholesterolemia, unspecified; E11.9 Type 2 diabetes mellitus without complications; Z79.01 Long term (current) use of anticoagulants; I25.2 Old myocardial infarction; Z87.442 Personal history of urinary calculi; Z95.810 Presence of automatic (implantable) cardiac defibrillator
CPT/HCPCS: 93005; 99285; 96361; 96374; 36415; 83690; 85025; 85610; 85730; 80053; 84484; 83880; 93010; J2550; J7040

== ENCOUNTER → 2018-07-14 | Outpatient (CLI) | payer MEDICARE, MEDICAID ==
--- NOTE | 2018-07-14 19:41 | RADIOLOGY REPORT (SQ) ---
EXAM DESCRIPTION: CHEST 2 VIEWS COMPLETED DATE/TIME: 07/14/2018 7:16 pm REASON FOR STUDY: R07.89 POTENTIAL BROKEN STERNOTOMY WIRE; STERNAL PAIN COMPARISON: 12/14/2017 EXAM PARAMETERS: NUMBER OF VIEWS: two views TECHNIQUE: Digital Frontal and Lateral radiographic views of the chest acquired. RADIATION DOSE: NA LIMITATIONS: none FINDINGS: LUNGS AND PLEURA: Pulmonary vascular congestion. No infiltrate or effusion. No pulmonary edema. MEDIASTINUM AND HILAR STRUCTURES: No masses or contour abnormalities. HEART AND VASCULAR STRUCTURES: Heart size is borderline. BONES: No acute findings. HARDWARE: Pacemaker/defibrillator. LVAD. Sternotomy wires. OTHER: No other significant finding. IMPRESSION: Borderline heart size with no pulmonary edema. TECHNICAL DOCUMENTATION: JOB ID: [id number] [employer]- All Rights Reserved Reading location - IP/workstation name: [email or web address]
== END ==
LOC: RAD 18:23
PROVIDERS: ATTEND Nurse Practitioner
DX: R07.89 Other chest pain (principal); Z95.0 Presence of cardiac pacemaker
CPT/HCPCS: 71046

== ENCOUNTER 2018-08-03 10:07 | Emergency (ER) | payer MEDICARE, MEDICAID ==
--- NOTE | 2018-08-03 11:01 | ER Document Report ---
ED General <DIONY NEGRETE - Last Filed: 08/03/18 23:04> - General TRAVEL OUTSIDE OF THE U.S. IN LAST 30 DAYS: No <RICHARD KHAN - Last Filed: 08/04/18 07:07> - General Chief Complaint: Shortness Of Breath Stated Complaint: SHORTNESS OF BREATH Time Seen by Provider: 08/03/18 10:13 - HPI Notes: Patient is a 48-year-old male with a history of LVAD placement (May 2018), coronary artery disease with 2 stents, cardiomyopathy with ejection fraction of 17%, status post AICD, endocarditis who presents to the ED complaining of nausea and vomiting that began this morning around 230am. Pt states that he has lower sternal chest pain that has been present for 2 weeks and was eval'd by [facility] at that time. He states that he has a "slight separation" in his sternum and the pain has been constant since then with no new chest pains. His pain does not radiate and is worse if he pushes on his sternum. Patient states that he is otherwise able to urinate and is having normal bowel movements. He has not had any abdominal pain. Patient has notified his coordinator who is aware that he is here. Denies any drug allergies otherwise. Patient states that he usually gets transferred to [place] when he has issues similar to this, but the nausea and vomiting is more severe than it had been before. Denies any headache, fever, neck pain, changes in vision/speech/mentation/hearing, URI, sore throat, palpitations, syncope, cough, shortness of breath, wheeze, dyspnea , abdominal pain, diarrhea, urinary retention, dysuria, hematuria, back pain, loss of control of bowel or bladder, numbness/tingling, saddle anesthesia, muscle paralysis/weakness, or rash. (RICHARD KHAN) - Related Data Allergies/Adverse Reactions: Iodinated Contrast- Oral and IV Dye [IV Dye, Iodine Containing] Allergy ( Verified 06/14/18 12:35) Anaphylaxis iodine Allergy (Verified 06/14/18 12:35) Shellfish * [Shellfish] Allergy (Verified 06/14/18 12:35) Past Medical History - Social History Smoking Status: Never Smoker Chew tobacco use (# tins/day): No Frequency of alcohol use: None Drug Abuse: None Family History: Reviewed & Not Pertinent, CAD - significant family history of CAD, Other - Father: [place] and CHF; Brother: heart disease; CHF Patient has suicidal ideation: No Patient has homicidal ideation: No - Past Medical History Cardiac Medical History: Reports: Hx Atrial Fibrillation, Hx Congestive Heart Failure, Hx Coronary Artery Disease, Hx Heart Attack - 2014, Hx Hypercholesterolemia, Hx Hypertension Pulmonary Medical History: Denies: Hx Tuberculosis Neurological Medical History: Reports: Hx Migraine Endocrine Medical History: Reports: Hx Diabetes Mellitus Type 2 Renal/ Medical History: Reports: Hx Kidney Stones. Denies: Hx Peritoneal Dialysis Musculoskeletal Medical History: Reports Hx Arthritis, Reports Hx Musculoskeletal Deformity, Reports Hx Musculoskeletal Trauma Psychiatric Medical History: Reports: Hx Depression Traumatic Medical History: Reports: Hx Fractures Past Surgical History: Reports: Hx Cardiac Catheterization - x 10-12, Hx Cardiac Surgery - pacer/defib; stents x 2, Hx Internal Defibrillator, Hx Orthopedic Surgery - L knee x2; R knee x13, Hx Pacemaker - Immunizations Immunizations up to date: Yes Hx Diphtheria, Pertussis, Tetanus Vaccination: Yes Hx Pneumococcal Vaccination: 07/26/12 <RICHARD KHAN - Last Filed: 08/04/18 07:07> Review of Systems - Review of Systems -: Yes All other systems reviewed and negative <RICHARD KHAN - Last Filed: 08/04/18 07:07> Physical Exam <DIONY NEGRETE - Last Filed: 08/03/18 23:04> <RICHARD KHAN - Last Filed: 08/04/18 07:07> - Vital signs Vitals: Temp Resp 100.3 F 21 H 08/03/18 10:28 08/03/18 10:28 - Notes Notes: PHYSICAL EXAMINATION: GENERAL: Well-appearing, well-nourished and in no acute distress. A&Ox4. Answers questions appropriately. HEAD: Atraumatic, normocephalic. EYES: Pupils equal round and reactive to light, extraocular movements intact, sclera anicteric, conjunctiva are normal. ENT: Nares patent and without discharge. oropharynx clear without exudates. No tonsilar hypertrophy or erythema. Moist mucous membranes. NECK: Normal range of motion, supple without lymphadenopathy Chest: + reproducible tenderness to palpation of the sternal area and reproducible with arm extension/abduction. LUNGS: Breath sounds clear to auscultation bilaterally and equal. No wheezes rales or rhonchi. HEART: Regular rate and rhythm without murmurs, rubs, gallops. LVAD audible. ABDOMEN: Soft, nontender, nondistended abdomen. No guarding, no rebound. No masses appreciated. Normal bowel sounds present. No CVA tenderness bilaterally. Musculoskeletal: FROM to passive/active. Strength 5+/5. Ike neg. No asymmetry to LE's. Extremities: No cyanosis, clubbing, or edema b/l. Peripheral pulses 2+. Capillary refill less than 3 seconds. NEUROLOGICAL: Normal speech, normal gait. PSYCH: Normal mood, normal affect. SKIN: Warm, Dry, normal turgor, no rashes or lesions noted. (RICHARD KHAN) Course - Laboratory Result Diagrams: 08/03/18 13:00 08/03/18 13:00 <DIONY NEGRETE - Last Filed: 08/03/18 23:04> - Laboratory Result Diagrams: 08/03/18 13:00 08/03/18 13:00 <RICHARD KHAN - Last Filed: 08/04/18 07:07> - Re-evaluation Re-evalutation: 08/03/18 23:00 Patient was complaining of nausea again, requesting Phenergan, he has had this IM before with good results reportedly. He was provided with this. Afterwards patient did report improvement. EMS is now at bedside, patient was reevaluated at bedside, no significant change from prior, no additional complaints, stable for transport. (DIONY NEGRETE) 08/03/18 11:09 I did call and speak with the LVAD coordinator, Angely Morgan, who states that his system is not alarming at this time. She also updated me that [facility] ground and air are both 'grounded' due to the snow fall. 08/03/18 13:14 Labs were recently sent to the lab, there was a delay since my orders were placed. Pt is doing much better after receiving a 500cc bolus and PO fluids and reglan. He has no new concerns or complaints at this time. 08/03/18 14:32 Re-evaluation of patient: pt is starting to get a headache with some neck pain. Tylenol ordered and call placed to speak his cardiology group in [place]. I re-evaluated the neck and he has some stiffness/tenderness with flexion. We will consider plan for a spinal tap. Temp performed by myself and was 101.4 oral. 08/03/18 14:40 Spoke with Angely Morgan who is someone I have to talk again with first prior to the wrong address clerk per [facility]. She advises against spinal tap due to pt being anticoagulated with coumadin/aspirin. We are starting to treat as sepsis at this time and lactic, blood cx, and vbg ordered along with IV vanc and zosyn after case review with Dr. Downs. We will add a PT/PTINR to his labs and I called lab to have them run now. We will consider having Fluoro perform spinal tap for best efficiency to reduce risk of bleeding. 08/03/18 16:15 I have spoken with Dr. Downs and Dr. Prescott, Cardiology/[facility]. Dr. Prescott advises against spinal tap at this time as does our Panel Fitter due to INR 1.92 and we cannot reverse as pt is an LVAD pt. He agrees that he needs to be admitted for Sepsis (Lactic 3.3). He has welcomed a transfer if needed, but they are currently on hold from any transfers due to the weather. I spoke with our Hospitalist who wants our wrong address clerk to be updated and get his opinion. Dr. Baker, cardio, has requested the patient be transferred to a facility that can handle a LVAD. I have placed another call to [facility] who is trying to figure out their specific current situation with room and transport and will get back to me. 08/03/18 16:47 Received a call back from [facility] transfer center who states that Dr. Prescott does accept the admission and they are working on a bed assignment. It will be dependent upon the transport company utilized if they are transferring up to [place] or if they have ceased all transport that direction due to the weather. Reviewed with the transfer center that we will work on transport and see if anyone is willing to transport to [place] and I will update them as soon as I find out. We may also start a transfer to [facility] if no transport will go to [place]. 08/03/18 17:22 We currently are having difficulties finding transport. I have placed a call to [facility] for transfer to their facility as we continue to exhaust our transportation options to [place]. 08/03/18 17:46 [facility] have stated 100% able to transfer pt tomorrow morning. We would have to call [facility] tomorrow morning. I reviewed this again with Dr. Downs who believes this patient is appropriate to fly as he is a LVAD patient and is septic. I did speak with Dr. Rose who has declined admission to our hospital saying that we can manage sepsis in the ED and they do not have any equipment to support a LVAD. Remaining options for this patient are to go to [facility] or stay in the ED for transfer tomorrow morning. Pt [facility] and would like to stay for transfer tomorrow morning. Reviewed the risk/benefit of this decision thoroughly with the patient who is aware that we do not have the capabilities to support the LVAD if something goes awry with it and he could which he is aware of. He has all of his home medications at the bedside and spouse/pt wants to continue home meds as scheduled instead of us handling his meds which we are in agreement with due to the volume of medications and the risk of losing them as we are not inpatient management. We will give him his 3.375 of zosyn Q6 hours and Vancomycin 1g Q12 hours. 08/03/18 18:11 We just got an update from flight out of [place] that states that they cannot take the patient in the morning now because of the weather that is going to be affecting the area tomorrow. I did receive a call back from [facility] who states that they do not support and take LVAD patients, unless by emergency that has to be approved through their cardiology unit. Page has been sent to their cardiology unit for discussion as we do not have guaranteed transfer to [place] in the morning at this time. Because of the no guarantee of transfer, I will be speaking to the patient about being sent to [facility] until transfer to [place] can be accomplished. [employer] has been called as well and decision pending. 08/03/18 18:[address] Rosales, cardio at [facility], who declined as they cannot accept a septic LVAD patient. Recommended [facility]. Spoke with transport unit for [facility] and they are transporting to [facility] based on that present weather when they are to drive. 08/03/18 18:33 Call placed to [facility] cardiology for transfer. 08/03/18 18:45 I spoke with the commonwealth attorney, Dr. Villarreal at [facility], who accepted pt for admit to their facility. [facility] is not able to transport. We have officially exhausted all options to go to [place] in the next 12-24 hours. I have thoroughly reviewed this transport to [facility] with the pt and his who are in agreement with transfer as we do not have guaranteed transport in the in morning. If they remain here until morning, we will try calling for transport to [place] again, bed pending however. I will place orders for his antibiotics in the mean time and dinner has been previously ordered. 08/03/18 19:00 CBC, CMP, Zosyn, and vancomycin were ordered for 08/04 as timed. Repeat vitals have also been ordered. Transfer of care will be given to Diony Rogel PA-C and was introduced at bedside. ( RICHARD KHAN) - Vital Signs Vital signs: Temp Pulse Resp BP Pulse Ox 98.8 F 74 19 98 08/03/18 23:05 08/03/18 23:05 08/03/18 23:05 08/03/18 23:05 - Laboratory Laboratory results interpreted by me: 08/03/18 08/03/18 08/03/18 11:01 11:32 13:00 WBC 14.6 H Hgb 12.9 L Hct 37.8 L RDW 17.0 H Seg Neuts % (Manual) 93 H Band Neutrophils % 1 L Lymphocytes % (Manual) 3 L Abs Neuts (Manual) 13.7 H Abs Lymphs (Manual) 0.4 L PT APTT Glucose POC Glucose 290 H Lactic Acid Creatine Kinase NT-Pro-B Natriuret Pep Urine Protein 100 H Urine Glucose (UA) >=500 H 08/03/18 08/03/18 08/03/18 13:00 13:00 13:00 WBC Hgb Hct RDW Seg Neuts % (Manual) Band Neutrophils % Lymphocytes % (Manual) Abs Neuts (Manual) Abs Lymphs (Manual) PT 22.9 H APTT 37.7 H Glucose 229 H POC Glucose Lactic Acid Creatine Kinase 48 L NT-Pro-B Natriuret Pep 3100 H Urine Protein Urine Glucose (UA) 08/03/18 08/03/18 08/03/18 14:20 15:50 19:37 WBC Hgb Hct RDW Seg Neuts % (Manual) Band Neutrophils % Lymphocytes % (Manual) Abs Neuts (Manual) Abs Lymphs (Manual) PT APTT Glucose POC Glucose 192 H Lactic Acid 3.3 H 2.5 H Creatine Kinase NT-Pro-B Natriuret Pep Urine Protein Urine Glucose (UA) Critical Care Note <DIONY NEGRETE - Last Filed: 08/03/18 23:04> - Critical Care Note Total time excluding time spent on procedures (mins): 120 <RICHARD KHAN - Last Filed: 08/04/18 07:07> - Critical Care Note Comments: Time spent with repeated evaluations and exam including phone time with multiple facilities and providers as noted in the course note. (RICHARD KHAN) Discharge <DIONY NEGRETE - Last Filed: 08/03/18 23:04> <RICHARD KHAN - Last Filed: 08/04/18 07:07> - Discharge Clinical Impression: LVAD (left ventricular assist device) present Sepsis Qualifiers: Sepsis type: sepsis due to unspecified organism Qualified Code(s): A41.9 - Sepsis, unspecified organism Leukocytosis Qualifiers: Leukocytosis type: unspecified Qualified Code(s): D72.829 - Elevated white blood cell count, unspecified Condition: Stable Disposition: [facility] Referrals: TIO STANTON MD [Primary Care Provider] - Follow up as needed
[2018-08-03] MEDS ORDERED: NORMAL SALINE 500 ML IV ONE ×2 (11:02→14:48)
[2018-08-03] MEDS ORDERED: METOCLOPRAMIDE HCL INJ/PF 10 MG/2 ML SDV IV ONE (11:02)
--- NOTE | 2018-08-03 11:24 | RADIOLOGY REPORT (SQ) ---
EXAM DESCRIPTION: CHEST SINGLE VIEW COMPLETED DATE/TIME: 08/03/2018 11:15 am REASON FOR STUDY: n/v, LVAD/AICD in place COMPARISON: 07/14/2018 EXAM PARAMETERS: NUMBER OF VIEWS: One view. TECHNIQUE: Single frontal radiographic view of the chest acquired. RADIATION DOSE: NA LIMITATIONS: None. FINDINGS: LUNGS AND PLEURA: No opacities, masses or pneumothorax. No pleural effusion. MEDIASTINUM AND HILAR STRUCTURES: No masses. Contour normal. HEART AND VASCULAR STRUCTURES: Cardiomegaly status post median sternotomy with LVAD and right chest m ulti lead pacer defibrillator. BONES: No acute findings. HARDWARE: None in the chest. OTHER: No other significant finding. IMPRESSION: No acute abnormality of the lungs in AP projection. Cardiomegaly status post median ramon rnotomy with LVAD and right chest multi lead pacer defibrillator. TECHNICAL DOCUMENTATION: JOB ID: [id number] [employer] [place]- All Rights Reserved Reading location - IP/workstation name: [email or web address]
[2018-08-03 11:59] LABS: A TYPE INFLUENZA AG NEGATIVE (NEGATIVE); B INFLUENZA AG NEGATIVE (NEGATIVE)
[2018-08-03] MEDS ORDERED: MORPHINE SULFATE 10 MG/ML INJ IV ONE ×3 (12:02→18:25)
[2018-08-03 12:27] LABS: APPEARANCE,URINE CLEAR; BILIRUBIN,URINE NEGATIVE (NEGATIVE); COLOR,URINE YELLOW; GLUCOSE, URINE >=500 mg/dL (NEGATIVE); KETONES,URINE NEGATIVE (NEGATIVE); LEUKOCYTE ESTERASE,URINE NEGATIVE (NEGATIVE); NITRITE,URINE NEGATIVE (NEGATIVE); PROTEIN,URINE 100 mg/dL (NEGATIVE); URINE SPECIFIC GRAVITY 1.015; UROBILINOGEN,URINE NEGATIVE mg/dL (<2.0)
[2018-08-03 13:22] LABS: HEMATOCRIT 37.8 % (37.9-51.0); HEMOGLOBIN 12.9 g/dL (13.5-17.0); MEAN CORPUSCULAR HGB CONC 34.1 g/dL (32.0-36.0); MEAN CORPUSCULAR VOLUME 85 fl (80-97); PLATELET COUNT 165 10^3/uL (150-450); RED BLOOD COUNT 4.45 10^6/uL (4.35-5.55); WHITE BLOOD COUNT 14.6 10^3/uL (4.0-10.5)
[2018-08-03 13:39] LABS: ABSOLUTE LYMPHOCYTES# (MANUAL) 0.4 10^3/uL (0.5-4.7); ABSOLUTE MONOCYTES # (MANUAL) 0.4 10^3/uL (0.1-1.4); ABSOLUTE NEUTROPHILS# (MANUAL) 13.7 10^3/uL (1.7-8.2); BAND NEUTROPHILS % (MANUAL) 1 % (3-5); BASOPHILS % (MANUAL) 0 % (0-2); EOSINOPHILS % (MANUAL) 0 % (0-6); LYMPHOCYTES % (MANUAL) 3 % (13-45); MONOCYTES % (MANUAL) 3 % (3-13); SEGMENTED NEUTROPHILS % (MAN) 93 % (42-78); TOTAL CELLS COUNTED 100
[2018-08-03 13:40] LABS: ANISOCYTOSIS 1+; OVALOCYTES 1+; PLATELET COMMENT ADEQUATE; PLATELET GIANT PRESENT; POIKILOCYTOSIS 1+; POLYCHROMASIA 1+; TOXIC GRANULATION 1+
[2018-08-03 13:41] LABS: ALANINE AMINOTRANSFERASE 21 U/L (21-72); ALKALINE PHOSPHATASE 123 U/L (38-126); ANION GAP 15 (5-19); ASPARTATE AMINO TRANSFERASE 29 U/L (17-59); BILIRUBIN,DIRECT 0.2 mg/dL (0.0-0.4); BILIRUBIN,TOTAL 0.8 mg/dL (0.2-1.3); BLOOD UREA NITROGEN 19 mg/dL (7-20); CALCIUM 9.3 mg/dL (8.4-10.2); CARBON DIOXIDE 23 mmol/L (22-30); CHLORIDE 101 mmol/L (98-107); CREATINE KINASE 48 U/L (55-170); GLUCOSE 229 mg/dL (75-110); POTASSIUM 4.2 mmol/L (3.6-5.0); SODIUM 138.7 mmol/L (137-145); TOTAL PROTEIN 7.2 g/dL (6.3-8.2)
[2018-08-03 13:53] LABS: CREATINE KINASE MB 0.69 ng/mL (<4.55)
[2018-08-03 13:55] LABS: TROPONIN I 0.071 ng/mL
[2018-08-03] MEDS ORDERED: ACETAMINOPHEN 325 MG TABLET PO ONE ×2 (14:23→21:26)
[2018-08-03] MEDS ORDERED: VANCOMYCIN HCL INJ 1000 MG VIAL IV ONE (14:44)
[2018-08-03] MEDS ORDERED: PIPERACILLIN/TAZOBACTAM 3.375 GM VIAL IV ONE (14:44)
[2018-08-03 14:54] LABS: INTERNATIONAL RATION (INR) 1.92; PROTHROMBIN TIME 22.9 SEC (11.4-15.4)
[2018-08-03 14:55] LABS: PARTIAL THROMBOPLASTIN TIME 37.7 SEC (23.5-35.8)
[2018-08-03] MEDS ORDERED: FENTANYL CITRATE INJ/PF 100 MCG/2 ML AMPUL IV ONE (14:55)
[2018-08-03 15:27] LABS: VENOUS BLOOD BASE EXCESS -0.3 mmol/L; VENOUS BLOOD HCO3 25.8 mmol/L (20-32); VENOUS BLOOD PCO2 47.9 mmHg (35-63); VENOUS BLOOD PH 7.35 (7.30-7.42)
--- NOTE | 2018-08-03 16:29 | RADIOLOGY REPORT (SQ) ---
EXAM DESCRIPTION: CT HEAD WITHOUT COMPLETED DATE/TIME: 08/03/2018 4:20 pm REASON FOR STUDY: fever COMPARISON: 09/10/2014 TECHNIQUE: Axial images acquired through the brain without intravenous contrast. Images reviewed wi th bone, brain and subdural windows. Additional sagittal and coronal reconstructions were generated. Images stored on PACS. All CT scanners at this facility use dose modulation, iterative reconstruction, and/or weight based d osing when appropriate to reduce radiation dose to as low as reasonably achievable (ALARA). [facility]: Dose Right [facility]: CareDose [facility]: Dose Right [facility]: Teradose 4D [facility]: Smart LineRate Systems RADIATION DOSE: CT Rad equipment meets quality standard of care and radiation dose reduction techniq ues were employed. CTDIvol: 53.2 mGy. DLP: 1124 mGy-cm. mGy. LIMITATIONS: None. FINDINGS: VENTRICLES: Normal size and contour. CEREBRUM: No masses. No hemorrhage. No midline shift. No evidence for acute infarction. Normal gra y/white matter differentiation. No areas of low density in the white matter. CEREBELLUM: No masses. No hemorrhage. No alteration of density. No evidence for acute infarction. EXTRAAXIAL SPACES: No fluid collections. No masses. ORBITS AND GLOBE: No intra- or extraconal masses. Normal contour of globe without masses. CALVARIUM: No fracture. PARANASAL SINUSES: No fluid or mucosal thickening. SOFT TISSUES: No mass or hematoma. OTHER: No other significant finding. IMPRESSION: NORMAL BRAIN CT WITHOUT CONTRAST. EVIDENCE OF ACUTE STROKE: NO. COMMENT: Quality ID # [id number]: Final reports with documentation of one or more dose reduction techniques (e.g., Automated exposure control, adjustment of the mA and/or kV according to patient size, use of iterative reconstruction technique) TECHNICAL DOCUMENTATION: JOB ID: [id number] [employer]- All Rights Reserved Reading location - IP/workstation name: [email or web address]
--- NOTE | 2018-08-03 19:06 | Progress Note ---
Provider Note Provider Note: I was contacted be ER to admit Mr. Ho and I suggested to ED physician to contact Dixon Baker the cardiology composition board press operator at [facility] on 08/03/2018 and find out if it would be safe for the patient to be managed here at [facility]. As per my conversation with Dr. Dixon Baker he confirmed to me that he had a conversation with the ED physician and advised him to transferr patient to a tertiary center where he could be managed safely. He also mentioned that he had a conversation with Dr. Levy about the case and he also suggested for the patient to be transferred to a tertiary center and it would not be appropriate to manage him here at [facility]. Based on my conversation with cardiology team here at [facility] and the fact that the patient had recently placed a LVAD with underlying complex cardiac history who presented with a septic picture which may have been caused due to LVAD placement on May 2018 at [facility], I thought it would not be in the best interest of the patient to be managed here at [facility] due to our limited resources.
[2018-08-03] MEDS ORDERED: ONDANSETRON HCL INJ/PF 4 MG/2 ML SDV IV ONE (19:18)
[2018-08-03] MEDS ORDERED: PROMETHAZINE HCL INJ 25 MG/1 ML VIAL IM ONE (22:10)
--- NOTE | 2018-08-03 22:20 | EKG REPORT ---
SEVERITY:- DEFECTIVE ECG - TECHNICALLY POOR TRACING - PLEASE REPEAT ECG! VENTRICULAR-PACED COMPLEXES NONSPECIFIC INTRAVENTRICULAR CONDUCTION DELAY BORDERLINE ST DEPRESSION, INFERIOR LEADS : Confirmed by: Caryn Blackman 03-Aug-2018 22:19:34
[2018-08-04] MEDS ORDERED: PIPERACILLIN/TAZOBACTAM 3.375 GM VIAL IV ONE (03:15)
[2018-08-04] MEDS ORDERED: VANCOMYCIN HCL INJ 1000 MG VIAL IV ONE (04:00)
== END 2018-08-03 23:14 | disposition short-term general hospital (02) ==
LOC: ER 10:07
DX: R06.02 Shortness of breath (principal); D72.829 Elevated white blood cell count, unspecified; A41.9 Sepsis, unspecified organism; R51 Headache; M54.2 Cervicalgia; I48.91 Unspecified atrial fibrillation; I50.9 Heart failure, unspecified; I11.0 Hypertensive heart disease with heart failure; E11.9 Type 2 diabetes mellitus without complications; E78.00 Pure hypercholesterolemia, unspecified; I25.2 Old myocardial infarction; Z95.810 Presence of automatic (implantable) cardiac defibrillator; Z87.442 Personal history of urinary calculi
CPT/HCPCS: 93005; 96376; 99291; 99292; 96372; 96361; 96375; 96365; 96367; 36415; 87040; 82553; 82962; 82550; 83690; 85025; 85610; 85730; 87077; 80053; 81001; 84484; 82803; 83605; 87804; 83880; 71045; 70450; 93010; A9270; J3010; J2765; J2270; J2550; J2405; J7040; J3370; J2543; 87186

== ENCOUNTER → 2018-08-20 | Outpatient (CLI) | payer MEDICARE, MEDICAID ==
[2018-08-20 15:55] LABS: INTERNATIONAL RATION (INR) 1.27; PROTHROMBIN TIME 16.5 SEC (11.4-15.4)
== END ==
LOC: OD 14:56
PROVIDERS: ATTEND Internal Medicine Cardiovascular Disease
DX: Z95.811 Presence of heart assist device (principal); Z79.01 Long term (current) use of anticoagulants
CPT/HCPCS: 36415; 85610

== ENCOUNTER → 2018-10-14 | Outpatient (CLI) | payer MEDICARE, MEDICAID ==
[2018-10-14 08:27] LABS: INTERNATIONAL RATION (INR) 1.25; PROTHROMBIN TIME 16.3 SEC (11.4-15.4)
== END ==
LOC: OD 07:05
PROVIDERS: ATTEND Nurse Practitioner
DX: D68.0 Von Willebrand disease (principal); Z79.01 Long term (current) use of anticoagulants; Z95.811 Presence of heart assist device
CPT/HCPCS: 36415; 85610

== ENCOUNTER → 2018-10-17 | Outpatient (CLI) | payer MEDICARE, MEDICAID ==
--- NOTE | 2018-10-17 09:50 | RADIOLOGY REPORT (SQ) ---
EXAM DESCRIPTION: CHEST 2 VIEWS COMPLETED DATE/TIME: 10/17/2018 9:36 am REASON FOR STUDY: R07.82 INTERCOSTAL PAIN COMPARISON: 08/03/2018 EXAM PARAMETERS: NUMBER OF VIEWS: two views TECHNIQUE: Digital Frontal and Lateral radiographic views of the chest acquired. RADIATION DOSE: NA LIMITATIONS: none FINDINGS: LUNGS AND PLEURA: No opacities, masses or pneumothorax. No pleural effusion. MEDIASTINUM AND HILAR STRUCTURES: No masses or contour abnormalities. HEART AND VASCULAR STRUCTURES: Borderline cardiomegaly. No evidence for failure. BONES: No acute findings. HARDWARE: Prior anterior median sternotomy, LVAD and cardiac pacemaker/defibrillator. OTHER: No other significant finding. IMPRESSION: 1. No significant interval changes since the previous examination dated 08/03/2018. No acute findings. TECHNICAL DOCUMENTATION: JOB ID: [id number] [employer]- All Rights Reserved Reading location - IP/workstation name: [email or web address]
== END ==
LOC: RAD 09:12
PROVIDERS: ATTEND Physician Assistant Medical
DX: R07.82 Intercostal pain (principal)
CPT/HCPCS: 71046

== ENCOUNTER 2018-11-26 16:39 | Emergency (ER) | payer MEDICARE, MEDICAID ==
[2018-11-26 17:10] LABS: ABSOLUTE BASOPHILS # (AUTO) 0.1 10^3/uL (0.0-0.2); ABSOLUTE EOSINOPHILS # (AUTO) 0.2 10^3/uL (0.0-0.6); ABSOLUTE LYMPHOCYTES (AUTO) 0.9 10^3/uL (0.5-4.7); ABSOLUTE MONOCYTES (AUTO) 0.7 10^3/uL (0.1-1.4); ABSOLUTE NEUT (AUTO) 7.1 10^3/uL (1.7-8.2); BASOPHILS % (AUTO) 1.3 % (0-2); HEMATOCRIT 36.8 % (37.9-51.0); HEMOGLOBIN 12.9 g/dL (13.5-17.0); LYMPHOCYTES % (AUTO) 10.1 % (13-45); MEAN CORPUSCULAR VOLUME 83 fl (80-97); MONOCYTES % (AUTO) 7.7 % (3-13); PLATELET COUNT 214 10^3/uL (150-450); RED BLOOD COUNT 4.45 10^6/uL (4.35-5.55); RED CELL DISTRIBUTION WIDTH 17.7 % (11.5-14.0); SEGMENTED NEUTROPHILS % (AUTO) 78.9 % (42-78); TOTAL CELLS COUNTED % (AUTO) 100 %
[2018-11-26] MEDS ORDERED: PROMETHAZINE HCL INJ 25 MG/1 ML VIAL IV ONE ×2 (17:55→21:12)
[2018-11-26] MEDS ORDERED: MORPHINE SULFATE 10 MG/ML INJ IV ONE ×3 (17:56→20:23)
--- NOTE | 2018-11-26 17:59 | ER Document Report ---
ED Cardiac - General TRAVEL OUTSIDE OF THE [place]. IN LAST 30 DAYS: No <SKYLAR LACY - Last Filed: 11/26/18 21:44> <DALE OMSER - Last Filed: 11/26/18 23:53> - General Chief Complaint: Chest Pain Stated Complaint: CHEST PAIN Time Seen by Provider: 11/26/18 17:49 Primary Care Provider: STEPHANIA REDMAN PA-C [Primary Care Provider] - Follow up as needed Notes: Patient is a 48-year-old chronically ill male who presents the emergency department with a chief complaint of chest pain. His chest pain started around 1600 this afternoon. He states that is resolved pressure in the center of his chest. It is constant. And it radiates down his left arm and he feels some tingling in his arm. He received 100 mg of fentanyl intranasally, 324 mg of aspirin, and 1 sublingual nitroglycerin via EMS, but still complains of pain. Patient has a left ventricular assist device in place, for an ejection fraction of 17%. He does have a biventricular pacemaker. His last visit here in July, he was transferred out to [facility] for an infected pacemaker, in which he received a new pacemaker. (SKYLAR LACY) - Related Data Allergies/Adverse Reactions: Iodinated Contrast- Oral and IV Dye [IV Dye, Iodine Containing] Allergy (Verified 06/14/18 12:35) Anaphylaxis iodine Allergy (Verified 06/14/18 12:35) Shellfish * [Shellfish] Allergy (Verified 06/14/18 12:35) Past Medical History - General Information source: Patient - Social History Smoking Status: Never Smoker Frequency of alcohol use: None Drug Abuse: None Family History: Reviewed & Not Pertinent, CAD - significant family history of CAD, Other - Father: [place] and CHF; Brother: heart disease; CHF Patient has suicidal ideation: No Patient has homicidal ideation: No - Past Medical History Cardiac Medical History: Reports: Hx Atrial Fibrillation, Hx Congestive Heart Failure, Hx Coronary Artery Disease, Hx Heart Attack - 2014, Hx Hypercholesterolemia, Hx Hypertension Pulmonary Medical History: Denies: Hx Tuberculosis Neurological Medical History: Reports: Hx Migraine Endocrine Medical History: Reports: Hx Diabetes Mellitus Type 2 Renal/ Medical History: Reports: Hx Kidney Stones. Denies: Hx Peritoneal Dialysis Musculoskeletal Medical History: Reports Hx Arthritis, Reports Hx Musculoskeletal Deformity, Reports Hx Musculoskeletal Trauma Psychiatric Medical History: Reports: Hx Depression Traumatic Medical History: Reports: Hx Fractures Past Surgical History: Reports: Hx Cardiac Catheterization - x 10-12, Hx Cardiac Surgery - pacer/defib; stents x 2, Hx Internal Defibrillator, Hx Orthopedic Surgery - L knee x2; R knee x13, Hx Pacemaker - Immunizations Immunizations up to date: Yes Hx Diphtheria, Pertussis, Tetanus Vaccination: Yes Hx Pneumococcal Vaccination: 07/26/12 <SKYLAR LACY - Last Filed: 11/26/18 21:44> Review of Systems <SKYLAR LACY - Last Filed: 11/26/18 21:44> - Review of Systems Notes: REVIEW OF SYSTEMS: CONSTITUTIONAL : Denies recent illness. Denies recent unintentional weight loss. Denies fever, chills, or sweats. EENT: Denies eye, ear, throat, or mouth pain, discharge, or symptoms. Denies nasal or sinus congestion. CARDIOVASCULAR: See HPI RESPIRATORY: Denies shortness of breath, cough, congestion, difficulty breathing, or wheezing. GASTROINTESTINAL: Denies nausea, vomiting, and diarrhea. Denies abdominal pain. Denies constipation. GENITOURINARY: Denies difficulty urinating, burning, blood in urine, urgency or frequency. MUSCULOSKELETAL: Denies neck and back pain. Denies joint pain or swelling. SKIN: Denies rash, itchiness, or lesions HEMATOLOGIC : Denies easy bruising or bleeding. LYMPHATIC: Denies swollen, painful, enlarged glands. NEUROLOGICAL: Denies no numbness or tingling denies weakness. Denies headache. Denies altered mental status. Denies alteration in speech. PSYCHIATRIC: Denies stress, anxiety, alteration in sleep patterns, or depre ssion. All other systems reviewed and negative. (SKYLAR LACY) Physical Exam <SKYLAR LACY - Last Filed: 11/26/18 21:44> - Vital signs Vitals: Pulse Resp Pulse Ox 87 16 97 11/26/18 16:43 11/26/18 16:43 11/26/18 16:43 - Notes Notes: PHYSICAL EXAMINATION: GENERAL: Obese, no acute distress. HEAD: Normocephalic, atraumatic. EYES: PERRL, conjunctiva normal, all extraocular movements intact, sclera nonicteric ENT: Moist mucous membranes. NECK: Supple, no noticeable swelling, redness, rash. Normal range of motion. LUNGS: Equal breath sounds bilaterally and clear to auscultation. No wheezes rales or rhonchi. CARDIOVASCULAR: LVAD in place. LVAD heart sounds. ABDOMEN: Normoactive bowel sounds. Soft, nontender, no guarding, no rebound tenderness, and no masses palpated. EXTREMITIES: Normal strength and range of motion, no pitting or edema. No cyanosis. NEUROLOGICAL: Moves all extremities upon command. Strength 5/5 in all extremities. PSYCH: Normal mood, normal affect. SKIN: Warm, dry. No rash, lesions, ulcerations noted. Normal skin turgor. (SKYLAR LACY) Course - Laboratory Result Diagrams: 11/26/18 16:52 11/26/18 17:39 <SKYLAR LACY - Last Filed: 11/26/18 21:44> - Laboratory Result Diagrams: 11/26/18 16:52 11/26/18 17:39 <DALE MOSER - Last Filed: 11/26/18 23:53> - Re-evaluation Re-evalutation: 11/26/18 19:27 Patient's hematology is unremarkable at this time. His troponin is 0.018, but he still complains of chest pain, concerning for a possible myocardial infarction. I will contact [facility] at this time. He will receive 1 mg of Ativan, because he states that he is anxious and normally takes 3 mg of Ativan as needed. Chest x-ray is normal and shows no change from previous visit. 11/26/18 19:33 I spoke with Siria from [facility]. Will await callback. 11/26/18 19:55 I spoke with Jeferson Schmitt, the LVAD meat team member. He will speak with the attending physician Dr. Pool for admission. Awaiting callback. I will give the patient a GI cocktail and nitro paste per Jeferson Schmitt's recommendations. 11/26/18 20:20 Bedside report was given to SUSANNA Espinoza. 11/26/18 21:00 Patient states that the GI cocktail has not helped with his pain. He will receive another 4 mg of morphine IV. Patient CT of the head is unremarkable, no intracranial bleed noted. 11/26/18 21:05 Dr. Pineda spoke with Dr. Pool the patient will be transferred to [facility]. Awaiting second troponin. (SKYLAR LACY) 11/26/18 23:51 Transport is currently at bedside Vitals HR 88, 102 sys, RR 18, 97% RA Stable for transport (DALE MOSER) - Vital Signs Vital signs: Temp Pulse Resp BP Pulse Ox 97.9 F 81 11 L 92/45 L 93 11/26/18 19:07 11/26/18 17:08 11/26/18 23:00 11/26/18 22:51 11/26/18 23:00 - Laboratory Laboratory results interpreted by me: 11/26/18 11/26/18 16:52 17:39 Hgb 12.9 L Hct 36.8 L RDW 17.7 H Seg Neutrophils % 78.9 H Lymphocytes % 10.1 L Sodium 132.4 L BUN 29 H Glucose 254 H Creatine Kinase 54 L - EKG Interpretation by Me Additional EKG results interpreted by me: 11/26/18 17:10 Paced rhythm at 84. (SKYLAR LACY) Discharge <SKYLAR LACY - Last Filed: 11/26/18 21:44> <DALE MOSER - Last Filed: 11/26/18 23:53> - Discharge Clinical Impression: Chest pain Qualifiers: Chest pain type: unspecified Qualified Code(s): R07.9 - Chest pain, unspecified Condition: Critical Disposition: [facility] Referrals: STEPHANIA REDMAN PA-C [Primary Care Provider] - Follow up as needed
[2018-11-26 18:06] LABS: ALANINE AMINOTRANSFERASE 41 U/L (21-72); ALBUMIN 4.1 g/dL (3.5-5.0); ALKALINE PHOSPHATASE 124 U/L (38-126); ANION GAP 10 (5-19); ASPARTATE AMINO TRANSFERASE 36 U/L (17-59); BILIRUBIN,DIRECT 0.2 mg/dL (0.0-0.4); BILIRUBIN,TOTAL 0.6 mg/dL (0.2-1.3); BLOOD UREA NITROGEN 29 mg/dL (7-20); CALCIUM 9.7 mg/dL (8.4-10.2); CARBON DIOXIDE 24 mmol/L (22-30); CHLORIDE 98 mmol/L (98-107); CREATINE KINASE 54 U/L (55-170); GLUCOSE 254 mg/dL (75-110); POTASSIUM 4.4 mmol/L (3.6-5.0); SODIUM 132.4 mmol/L (137-145); TOTAL PROTEIN 7.1 g/dL (6.3-8.2)
--- NOTE | 2018-11-26 18:12 | RADIOLOGY REPORT (SQ) ---
EXAM DESCRIPTION: CHEST SINGLE VIEW COMPLETED DATE/TIME: 11/26/2018 5:59 pm REASON FOR STUDY: chest pain COMPARISON: 10/17/2018. EXAM PARAMETERS: NUMBER OF VIEWS: One view. TECHNIQUE: Single frontal radiographic view of the chest acquired. RADIATION DOSE: NA LIMITATIONS: None. FINDINGS: LUNGS AND PLEURA: No opacities, masses or pneumothorax. No pleural effusion. MEDIASTINUM AND HILAR STRUCTURES: No masses. Contour normal. HEART AND VASCULAR STRUCTURES: Heart normal in size. Normal vasculature. BONES: No acute findings. HARDWARE: Defibrillator, sternotomy wires, and left ventricular assist device. OTHER: No other significant finding. IMPRESSION: NO ACUTE RADIOGRAPHIC FINDING IN THE CHEST. TECHNICAL DOCUMENTATION: JOB ID: [id number] [employer]- All Rights Reserved Reading location - IP/workstation name: [email or web address]
[2018-11-26 18:16] LABS: CREATINE KINASE MB 1.22 ng/mL (<4.55); TROPONIN I 0.018 ng/mL
--- NOTE | 2018-11-26 18:49 | EKG REPORT ---
SEVERITY:- DEFECTIVE ECG - TECHNICALLY POOR TRACING - PLEASE REPEAT ECG! A SENSE V PACING : Confirmed by: Herbert Justice MD 26-Nov-2018 18:48:19
[2018-11-26] MEDS ORDERED: LORAZEPAM 1 MG TABLET PO ONE ×2 (19:15→23:51)
[2018-11-26] MEDS ORDERED: METOCLOPRAMIDE HCL ORAL SOLN 10 MG/10 ML UDCUP PO ONE (19:44)
[2018-11-26] MEDS ORDERED: MAG HYDROX/AL HYDROX/SIMETH SUSP 30 ML UDCUP PO ONE (19:44)
[2018-11-26] MEDS ORDERED: LIDOCAINE 2% VISCOUS SOLN 20 ML UDCUP PO ONE (19:44)
[2018-11-26] MEDS ORDERED: NITROGLYCERIN 2% OINTMENT 1 GM PACKET TP ONE (19:50)
--- NOTE | 2018-11-26 20:06 | RADIOLOGY REPORT (SQ) ---
EXAM DESCRIPTION: CT HEAD WITHOUT COMPLETED DATE/TIME: 11/26/2018 7:04 pm REASON FOR STUDY: headache COMPARISON: CT brain 08/03/2018 TECHNIQUE: Axial images acquired through the brain without intravenous contrast. Images reviewed wi th bone, brain and subdural windows. Additional sagittal and coronal reconstructions were generated. Images stored on PACS. All CT scanners at this facility use dose modulation, iterative reconstruction, and/or weight based d osing when appropriate to reduce radiation dose to as low as reasonably achievable (ALARA). [facility]: Dose Right [facility]: CareDose [facility]: Dose Right [facility]: Teradose 4D [facility]: Smart [employer] RADIATION DOSE: CT Rad equipment meets quality standard of care and radiation dose reduction techniq ues were employed. CTDIvol: 53.2 mGy. DLP: 1044 mGy-cm. mGy. LIMITATIONS: None. FINDINGS: VENTRICLES: Normal size and contour. CEREBRUM: No masses. No hemorrhage. No midline shift. No evidence for acute infarction. Normal gra y/white matter differentiation. No areas of low density in the white matter. CEREBELLUM: No masses. No hemorrhage. No alteration of density. No evidence for acute infarction. EXTRAAXIAL SPACES: No fluid collections. No masses. ORBITS AND GLOBE: No intra- or extraconal masses. Normal contour of globe without masses. CALVARIUM: No fracture. PARANASAL SINUSES: No fluid or mucosal thickening. SOFT TISSUES: No mass or hematoma. OTHER: No other significant finding. IMPRESSION: NORMAL BRAIN CT WITHOUT CONTRAST. EVIDENCE OF ACUTE STROKE: NO. COMMENT: Quality ID # [id number]: Final reports with documentation of one or more dose reduction techniques (e.g., Automated exposure control, adjustment of the mA and/or kV according to patient size, use of iterative reconstruction technique) TECHNICAL DOCUMENTATION: JOB ID: [id number] [employer]- All Rights Reserved Reading location - IP/workstation name: [email or web address]
[2018-11-26 23:33] VITALS: BP 92/45
[2018-11-27] MEDS ORDERED: LORAZEPAM INJ 2 MG/1 ML VIAL IV ONE (00:02)
== END 2018-11-27 00:10 | disposition short-term general hospital (02) ==
LOC: ER 16:39
DX: R07.89 Other chest pain (principal); R20.2 Paresthesia of skin; I25.10 Atherosclerotic heart disease of native coronary artery without angina pectoris; I10 Essential (primary) hypertension; E11.9 Type 2 diabetes mellitus without complications; Z95.5 Presence of coronary angioplasty implant and graft; Z95.810 Presence of automatic (implantable) cardiac defibrillator; Z95.811 Presence of heart assist device; Z91.041 Radiographic dye allergy status; Z91.013 Allergy to seafood; Z82.49 Family history of ischemic heart disease and other diseases of the circulatory system
CPT/HCPCS: 93005; 96376; 99285; 96374; 96375; 36415; 82553; 82550; 83735; 85025; 80053; 84484; 71045; 70450; 93010; A9270 ×3; J3490; J2270; J2060; J2550

== ENCOUNTER 2019-01-07 06:31 | Emergency (ER) | payer MEDICARE, MEDICAID ==
[2019-01-07] MEDS ORDERED: LORAZEPAM INJ 2 MG/1 ML VIAL IV ONE (07:06)
[2019-01-07] MEDS ORDERED: MORPHINE SULFATE 10 MG/ML INJ IV ONE (07:06)
--- NOTE | 2019-01-07 07:37 | ER Document Report ---
Entered by JOSEPH BAZZI SCRIBE 01/07/19 0716 Acting as scribe for:FAIZA COUCH MD ED General - General Chief Complaint: Chest Tightness Stated Complaint: AICD PROBLEMS Time Seen by Provider: 01/07/19 06:54 Primary Care Provider: STEPHANIA REDMAN PA-C [Primary Care Provider] - Follow up as needed Mode of Arrival: Ambulatory Information source: Patient Notes: Patient is a 48 year old male with LVAD, defibrillator, type 2 diabetes, hypert ension, HLD chronic pain and anxiety presents to the emergency department due to his defibrillator firing. Patient states he received a shock around 0545 this am that woke him from his sleep. He states since the firing "my neck has locked up, left hand is going and my chest is tightening down". He asks for pain medication and anxiety medication for these symptoms. He denies any constipation or diarrhea. Patient's defibrillator is made by [employer] He reports having the LVAD placed in May 2018. Patient is currently prescribed 10 mg of oxycodone (4 times daily) 3 mg of Ativan (4 times daily). TRAVEL OUTSIDE OF THE [place] IN LAST 30 DAYS: No - Related Data Allergies/Adverse Reactions: Iodinated Contrast- Oral and IV Dye [IV Dye, Iodine Containing] Allergy (Verified 06/14/18 12:35) Anaphylaxis iodine Allergy (Verified 06/14/18 12:35) Shellfish * [Shellfish] Allergy (Verified 06/14/18 12:35) Past Medical History - General Information source: Patient - Social History Smoking Status: Never Smoker Cigarette use (# per day): No Chew tobacco use (# tins/day): No Smoking Education Provided: No Frequency of alcohol use: None Family History: Reviewed & Not Pertinent, CAD - significant family history of CAD, Other - Father: [place] and CHF; Brother: heart disease; CHF - Past Medical History Cardiac Medical History: Reports: Hx Atrial Fibrillation, Hx Congestive Heart Failure, Hx Coronary Artery Disease, Hx Heart Attack - 2013, Hx Hyperc holesterolemia, Hx Hypertension Neurological Medical History: Reports: Hx Migraine Endocrine Medical History: Reports: Hx Diabetes Mellitus Type 2 Renal/ Medical History: Reports: Hx Kidney Stones Musculoskeletal Medical History: Reports Hx Arthritis, Reports Hx Musculoskeletal Deformity, Reports Hx Musculoskeletal Trauma Psychiatric Medical History: Reports: Hx Depression Traumatic Medical History: Reports: Hx Fractures Past Surgical History: Reports: Hx Cardiac Catheterization - x 10-12, Hx Cardiac Surgery - pacer/defib; stents x 2, Hx Internal Defibrillator, Hx Orthopedic Surgery - L knee x2; R knee x13, Hx Pacemaker - Immunizations Immunizations up to date: Yes Hx Diphtheria, Pertussis, Tetanus Vaccination: Yes Hx Pneumococcal Vaccination: 07/26/12 Review of Systems - Review of Systems Constitutional: No symptoms reported EENT: No symptoms reported Cardiovascular: See HPI Respiratory: No symptoms reported Gastrointestinal: No symptoms reported Genitourinary: No symptoms reported Male Genitourinary: No symptoms reported Musculoskeletal: See HPI Skin: No symptoms reported Hematologic/Lymphatic: No symptoms reported Neurological/Psychological: See HPI, Anxiety -: Yes All other systems reviewed and negative Physical Exam - Vital signs Vitals: Resp 10 L 01/07/19 07:00 - Notes Notes: GENERAL: Alert, interacts well. No acute distress. HEAD: Normocephalic, atraumatic. EYES: Pupils equal, round, and reactive to light. Extraocular movements intact. ENT: Oral mucosa moist, tongue midline. NECK: Full range of motion. Supple. Trachea midline. LUNGS: Clear to auscultation bilaterally, no wheezes, rales, or rhonchi. No respiratory distress. Anterior chest wall tender to palpate. HEART: Can not auscultate due to LVAD. ABDOMEN: Soft, obese, non-tender. Non-distended. Bowel sounds present in all 4 quadrants. No guarding, rigidity, or rebound. EXTREMITIES: Moves all 4 extremities spontaneously. No edema, radial and dorsalis pedis pulses 2/4 bilaterally. No cyanosis. NEUROLOGICAL: Alert and oriented x3. Normal speech. PSYCH: Normal affect, normal mood. SKIN: Warm, dry, normal turgor. No rashes or lesions noted. Course - Re-evaluation Re-evalutation: 01/07/19 08:33 The pacemaker defibrillator was interrogated and showed no episodes of shock delivery. - Vital Signs Vital signs: Temp Pulse Resp BP Pulse Ox 9 L 01/07/19 08:00 - Laboratory Result Diagrams: 01/07/19 06:39 01/07/19 06:39 Laboratory results interpreted by me: 01/07/19 01/07/19 01/07/19 06:39 06:39 06:39 Hgb 12.7 L Hct 37.2 L RDW 17.3 H PT 29.8 H Chloride 96 L BUN 35 H Creatinine 1.75 H Est GFR ( Amer) 51 L Est GFR (Non-Af Amer) 42 L Glucose 163 H Magnesium 1.5 L Creatine Kinase 48 L - Diagnostic Test Radiology reviewed: Image reviewed, Reports reviewed - Chest x-ray does not show acute changes. - EKG Interpretation by Me EKG shows normal: [place], Intervals, QRS Complexes, ST-T Waves Rate: Normal - 75 Rhythm: Other - Atrial paced rhythm [place]/QRS: IVCD When compared to previous EKG there are: Other - Patient has LVAD causing considerable artifact Discharge - Discharge Clinical Impression: Neck pain on right side, Numbness of left hand, LVAD (left ventricular assist device) present, Defibrillator did not discharge Condition: Stable Disposition: HOME, SELF-CARE Additional Instructions: Interrogation of your pacemaker/AICD showed that the defibrillator did not discharge. What ever startled you from your sleep was not the defibrillator going off. Continue your regular medications. Follow-up with your primary care provider as needed this week. RETURN TO THE EMERGENCY ROOM IF ANY NEW OR WORSENING SYMPTOMS. Referrals: STEPHANIA REDMAN PA-C [Primary Care Provider] - Follow up as needed Scribe Attestation: 01/07/19 07:41 I personally performed the services described in the documentation, reviewed and edited the documentation which was dictated to the scribe in my presence, and it accurately records my words and actions. I personally performed the services described in the documentation, reviewed and edited the documentation which was dictated to the scribe in my presence, and it accurately records my words and actions.
--- NOTE | 2019-01-07 07:44 | EKG REPORT ---
SEVERITY:- DEFECTIVE ECG - TECHNICALLY POOR TRACING - PLEASE REPEAT ECG! ATRIAL-PACED COMPLEXES VENTRICULAR PACED COMPLEXES : Confirmed by: Herbert Justice MD 07-Jan-2019 07:44:22
--- NOTE | 2019-01-07 07:48 | RADIOLOGY REPORT (SQ) ---
EXAM DESCRIPTION: CHEST SINGLE VIEW COMPLETED DATE/TIME: 01/07/2019 7:31 am REASON FOR STUDY: AICD fired COMPARISON: 11/26/2018. NUMBER OF VIEWS: One view. TECHNIQUE: Single frontal radiographic view of the chest acquired. LIMITATIONS: None. FINDINGS: LUNGS AND PLEURA: No opacities, masses or pneumothorax. No pleural effusion. MEDIASTINUM AND HILAR STRUCTURES: No masses. Contour normal. HEART AND VASCULAR STRUCTURES: Heart normal in size. Normal vasculature. BONES: No acute findings. HARDWARE: Right pacer. Ventricular assist device over the cardiac apex. OTHER: No other significant finding. IMPRESSION: NO SIGNIFICANT RADIOGRAPHIC FINDING IN THE CHEST. TECHNICAL DOCUMENTATION: JOB ID: [id number] [employer]- All Rights Reserved Reading location - IP/workstation name: [email or web address]
[2019-01-07 07:49] LABS: ABSOLUTE BASOPHILS # (AUTO) 0.1 10^3/uL (0.0-0.2); ABSOLUTE EOSINOPHILS # (AUTO) 0.3 10^3/uL (0.0-0.6); ABSOLUTE LYMPHOCYTES (AUTO) 1.4 10^3/uL (0.5-4.7); ABSOLUTE MONOCYTES (AUTO) 0.8 10^3/uL (0.1-1.4); EOSINOPHILS % (AUTO) 3.4 % (0-6); HEMATOCRIT 37.2 % (37.9-51.0); HEMOGLOBIN 12.7 g/dL (13.5-17.0); LYMPHOCYTES % (AUTO) 16.7 % (13-45); MEAN CORPUSCULAR HEMOGLOBIN 29.1 pg (27.0-33.4); MEAN CORPUSCULAR HGB CONC 34.2 g/dL (32.0-36.0); MEAN CORPUSCULAR VOLUME 85 fl (80-97); MONOCYTES % (AUTO) 9.3 % (3-13); PLATELET COUNT 202 10^3/uL (150-450); RED BLOOD COUNT 4.37 10^6/uL (4.35-5.55); RED CELL DISTRIBUTION WIDTH 17.3 % (11.5-14.0); SEGMENTED NEUTROPHILS % (AUTO) 69.6 % (42-78); TOTAL CELLS COUNTED % (AUTO) 100 %; WHITE BLOOD COUNT 8.7 10^3/uL (4.0-10.5)
[2019-01-07 07:56] LABS: INTERNATIONAL RATION (INR) 2.68; PROTHROMBIN TIME 29.8 SEC (11.4-15.4)
[2019-01-07 08:08] LABS: CREATINE KINASE MB 0.92 ng/mL (<4.55); TROPONIN I 0.017 ng/mL
[2019-01-07 08:15] LABS: ALANINE AMINOTRANSFERASE 36 U/L (21-72); ALKALINE PHOSPHATASE 102 U/L (38-126); ANION GAP 14 (5-19); ASPARTATE AMINO TRANSFERASE 34 U/L (17-59); BILIRUBIN,DIRECT 0.3 mg/dL (0.0-0.4); BILIRUBIN,TOTAL 0.6 mg/dL (0.2-1.3); BLOOD UREA NITROGEN 35 mg/dL (7-20); CALCIUM 9.6 mg/dL (8.4-10.2); CARBON DIOXIDE 28 mmol/L (22-30); CHLORIDE 96 mmol/L (98-107); CREATINE KINASE 48 U/L (55-170); GLUCOSE 163 mg/dL (75-110); POTASSIUM 4.2 mmol/L (3.6-5.0); SODIUM 137.6 mmol/L (137-145); TOTAL PROTEIN 7.2 g/dL (6.3-8.2)
== END 2019-01-07 09:16 | disposition home or self-care (01) ==
LOC: ER 06:31
DX: M54.2 Cervicalgia (principal); R20.0 Anesthesia of skin; R07.9 Chest pain, unspecified; Z95.811 Presence of heart assist device; Z95.810 Presence of automatic (implantable) cardiac defibrillator; E11.9 Type 2 diabetes mellitus without complications; I10 Essential (primary) hypertension; I50.9 Heart failure, unspecified; I11.0 Hypertensive heart disease with heart failure; I25.10 Atherosclerotic heart disease of native coronary artery without angina pectoris
CPT/HCPCS: 93005; 99284; 36415; 82553; 82550; 83735; 85025; 85610; 80053; 84484; 71045; 93010; J2270; J2060

== ENCOUNTER 2019-01-28 03:47 | Emergency (ER) | payer MEDICARE, MEDICAID ==
--- NOTE | 2019-01-28 05:27 | RADIOLOGY REPORT (SQ) ---
EXAM DESCRIPTION: XR ELBOW 3 VIEWS COMPLETED DATE/TME: 01/28/2019 00:00 CLINICAL HISTORY: 48 years, Male, injury COMPARISON: None. NUMBER OF VIEWS: Five TECHNIQUE: Five views of the right elbow LIMITATIONS: None. FINDINGS: There is displacement of the anterior fat pad, indicative of a joint effusion. No displaced fracture is identified. No radiopaque foreign body. IMPRESSION: Joint effusion concerning for a nondisplaced fracture, possibly of the radial head. No displaced fracture is identified. copyright 2010 [employer]- All Rights Reserved
[2019-01-28] MEDS ORDERED: ASPIRIN 81 MG TABLET, CHEWABLE PO ONE (05:38)
[2019-01-28 06:01] LABS: ALANINE AMINOTRANSFERASE 29 U/L (21-72); ALBUMIN 4.3 g/dL (3.5-5.0); ALKALINE PHOSPHATASE 109 U/L (38-126); ANION GAP 17 (5-19); ASPARTATE AMINO TRANSFERASE 30 U/L (17-59); BILIRUBIN,DIRECT 0.5 mg/dL (0.0-0.4); BILIRUBIN,TOTAL 0.9 mg/dL (0.2-1.3); BLOOD UREA NITROGEN 28 mg/dL (7-20); CALCIUM 9.7 mg/dL (8.4-10.2); CARBON DIOXIDE 24 mmol/L (22-30); CHLORIDE 98 mmol/L (98-107); CREATINE KINASE 66 U/L (55-170); GLUCOSE 315 mg/dL (75-110); POTASSIUM 4.8 mmol/L (3.6-5.0); SODIUM 138.7 mmol/L (137-145); TOTAL PROTEIN 7.2 g/dL (6.3-8.2)
[2019-01-28 06:03] LABS: HEMATOCRIT 36.9 % (37.9-51.0); HEMOGLOBIN 12.4 g/dL (13.5-17.0); MEAN CORPUSCULAR HEMOGLOBIN 28.3 pg (27.0-33.4); MEAN CORPUSCULAR HGB CONC 33.5 g/dL (32.0-36.0); MEAN CORPUSCULAR VOLUME 85 fl (80-97); PLATELET COUNT 200 10^3/uL (150-450); RED BLOOD COUNT 4.36 10^6/uL (4.35-5.55); RED CELL DISTRIBUTION WIDTH 16.8 % (11.5-14.0); WHITE BLOOD COUNT 14.8 10^3/uL (4.0-10.5)
[2019-01-28 06:15] LABS: INTERNATIONAL RATION (INR) 2.94
[2019-01-28 06:16] LABS: TROPONIN I < 0.012 ng/mL
[2019-01-28 06:21] LABS: ABSOLUTE LYMPHOCYTES# (MANUAL) 0.9 10^3/uL (0.5-4.7); ABSOLUTE MONOCYTES # (MANUAL) 0.7 10^3/uL (0.1-1.4); ABSOLUTE NEUTROPHILS# (MANUAL) 13.2 10^3/uL (1.7-8.2); ANISOCYTOSIS 1+; BASOPHILS % (MANUAL) 0 % (0-2); EOSINOPHILS % (MANUAL) 0 % (0-6); LYMPHOCYTES % (MANUAL) 5 % (13-45); MONOCYTES % (MANUAL) 5 % (3-13); POIKILOCYTOSIS SLIGHT; SEGMENTED NEUTROPHILS % (MAN) 89 % (42-78); STOMATOCYTES SLIGHT; TOTAL CELLS COUNTED 100
[2019-01-28 06:22] LABS: OVALOCYTES SLIGHT; PLATELET COMMENT ADEQUATE; TEAR DROP CELLS SLIGHT
[2019-01-28] MEDS ORDERED: ONDANSETRON HCL INJ/PF 4 MG/2 ML SDV IV ONE (06:27)
[2019-01-28] MEDS ORDERED: HYDROMORPHONE HCL INJ/PF 2 MG/ML AMPULE IV ONE (06:27)
--- NOTE | 2019-01-28 06:50 | ER Document Report ---
Entered by JOSEPH BAZZI SCRIBE 01/28/19 [id number] Acting as scribe for:FAIZA COUCH MD ED General - General Chief Complaint: Arm Injury Stated Complaint: ARM/ANKLE PAIN Time Seen by Provider: 01/28/19 06:05 Primary Care Provider: STEPHANIA REDMAN PA-C [Primary Care Provider] - Follow up as needed Mode of Arrival: Ambulatory Information source: Patient Notes: Patient is a 48 year old male with LVAD, AICD, type 2 diabetes, hypertension, HLD, chronic pain and anxiety presents to the emergency department complaining of right elbow pain onset yesterday afternoon. Patient states he was attempting to sit down when he hit his elbow "the wrong way and felt something pop". Patient states he is concerned if that caused a possible gout flare up. He states the pain is exacerbated with extending his elbow and twisting his hand. He also complains of nausea. He denies any other focal symptoms. Patient is currently on Coumadin. TRAVEL OUTSIDE OF THE [place] IN LAST 30 DAYS: No - Related Data Allergies/Adverse Reactions: Iodinated Contrast- Oral and IV Dye [IV Dye, Iodine Containing] Allergy (Verified 06/14/18 12:35) Anaphylaxis iodine Allergy (Verified 06/14/18 12:35) Shellfish * [Shellfish] Allergy (Verified 06/14/18 12:35) Past Medical History - General Information source: Patient - Social History Smoking Status: Never Smoker Cigarette use (# per day): No Chew tobacco use (# tins/day): No Smoking Education Provided: No Frequency of alcohol use: None Lives with: Family Family History: Reviewed & Not Pertinent, CAD - significant family history of CAD, Other - Father: [place] and CHF; Brother: heart disease; CHF Patient has suicidal ideation: No Patient has homicidal ideation: No - Past Medical History Cardiac Medical History: Reports: Hx Atrial Fibrillation, Hx Congestive Heart Failure, Hx Coronary Artery Disease, Hx Heart Attack - 2013, Hx Hypercholesterolemia, Hx Hypertension Neurological Medical History: Reports: Hx Migraine Endocrine Medical History: Reports: Hx Diabetes Mellitus Type 2 Renal/ Medical History: Reports: Hx Kidney Stones Musculoskeletal Medical History: Reports Hx Arthritis, 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, Reports Hx Musculoskeletal Trauma Psychiatric Medical History: Reports: Hx Depression Traumatic Medical History: Reports: Hx Fractures Past Surgical History: Reports: Hx Cardiac Catheterization - x -, Hx Cardiac Surgery - pacer/defib; stents x 2, Hx Internal Defibrillator, Hx Orthopedic Surgery - L knee x2; R knee x13, Hx Pacemaker - Immunizations Immunizations up to date: Yes Hx Diphtheria, Pertussis, Tetanus Vaccination: Yes Hx Pneumococcal Vaccination: 07/26/12 Review of Systems - Review of Systems Constitutional: No symptoms reported EENT: No symptoms reported Cardiovascular: No symptoms reported Respiratory: No symptoms reported Gastrointestinal: See HPI, Nausea Genitourinary: No symptoms reported Male Genitourinary: No symptoms reported Musculoskeletal: See HPI Skin: No symptoms reported Hematologic/Lymphatic: No symptoms reported Neurological/Psychological: No symptoms reported -: Yes All other systems reviewed and negative Physical Exam - Vital signs Vitals: Temp Pulse Resp Pulse Ox 98.6 F 74 26 H 94 01/28/19 04:00 01/28/19 04:00 01/28/19 04:00 01/28/19 04:00 - Notes Notes: GENERAL: Alert, interacts well. No acute distress. HEAD: Normocephalic, atraumatic. EYES: Pupils equal, round, and reactive to light. Extraocular movements intact. ENT: Oral mucosa moist, tongue midline. NECK: Full range of motion. Supple. Trachea midline. LUNGS: Clear to auscultation bilaterally, no wheezes, rales, or rhonchi. No re spiratory distress. HEART: Can not auscultate due to LVAD. ABDOMEN: Soft, morbidly obese, non-tender. Non-distended. Bowel sounds present in all 4 quadrants. No guarding, rigidity, or rebound. EXTREMITIES: Moves all 4 extremities spontaneously. Right elbow is swollen and exquisitely tender to palpation, mostly over radial head. Complains of excruciating pain with pronating and supinating RUE in radial head. NEUROLOGICAL: Alert and oriented x3. Normal speech. PSYCH: Normal affect, normal mood. SKIN: Warm, dry, normal turgor. No rashes or lesions noted. Course - Re-evaluation Re-evalutation: 01/28/19 10:22 A sling was placed on the right arm by the PCT. The purpose of this was to support the weight of the forearm to allow the muscles around the elbow to relax, and to limit movement at the elbow. Patient reports that it provides considerable relief by allowing him to relax his muscles and keep the elbow still. - Vital Signs Vital signs: Temp Pulse Resp BP Pulse Ox 98.6 F 74 15 95 01/28/19 06:45 01/28/19 04:00 01/28/19 06:00 01/28/19 06:00 - Laboratory Result Diagrams: 01/28/19 05:33 01/28/19 05:33 Laboratory results interpreted by me: 01/28/19 01/28/19 01/28/19 05:33 05:33 05:33 WBC 14.8 H Hgb 12.4 L Hct 36.9 L RDW 16.8 H Seg Neuts % (Manual) 89 H Lymphocytes % (Manual) 5 L Abs Neuts (Manual) 13.2 H PT 32.0 H BUN 28 H Creatinine 1.54 H Est GFR ( Amer) 59 L Est GFR (Non-Af Amer) 48 L Glucose 315 H Direct Bilirubin 0.5 H Discharge - Discharge Clinical Impression: Right radial head fracture Qualifiers: Encounter type: initial encounter Fracture type: closed Fracture alignment: nondisplaced Qualified Code(s): S52.124A - Nondisplaced fracture of head of right radius, initial encounter for closed fracture Condition: Stable Disposition: HOME, SELF-CARE Additional Instructions: Radial Head Fracture You PROBABLY have a fracture of the radial head. This fracture involves the forearm bone, called the radius, right where it attaches to the outer side of the elbow. The fracture is usually caused by falling down and catching yourself with your hand. The initial treatment is a splint or sling, and ice packs. Usually, this fracture is not put in a cast. The major treatment goal for a radial head fracture is preserving full motion of the elbow. The elbow is immobilized just long enough for the pain and swelling to improve (a week to 10 days). Then [id number] exercises are started. The fracture is usually healed in about four weeks. Call the doctor or return at once if pain or swelling become severe, or if numbness develops in the arm. Call your orthopedic surgeon's office today to schedule an appointment. RETURN TO THE EMERGENCY ROOM IF ANY NEW OR WORSENING SYMPTOMS. Referrals: STEPHANIA REDMAN PA-C [Primary Care Provider] - Follow up as needed Scribe Attestation: 01/28/19 06:29 I personally performed the services described in the documentation, reviewed and edited the documentation which was dictated to the scribe in my presence, and it accurately records my words and actions. I personally performed the services described in the documentation, reviewed and edited the documentation which was dictated to the scribe in my presence, and it accurately records my words and actions.
--- NOTE | 2019-01-28 07:51 | EKG REPORT ---
SEVERITY:- DEFECTIVE ECG - TECHNICALLY POOR TRACING - PLEASE REPEAT ECG! VENTRICULAR PACING. POOR TECHNIQUE AND AND NON-DIAGNOSTIC. : Confirmed by: Herbert Justice MD 28-Jan-2019 07:50:37
== END 2019-01-28 06:58 | disposition home or self-care (01) ==
LOC: ER 03:47
DX: S52.124A Nondisplaced fracture of head of right radius, initial encounter for closed fracture (principal); M25.521 Pain in right elbow; X58.XXXA Exposure to other specified factors, initial encounter; R11.0 Nausea; E11.9 Type 2 diabetes mellitus without complications; I10 Essential (primary) hypertension; I25.10 Atherosclerotic heart disease of native coronary artery without angina pectoris; I48.91 Unspecified atrial fibrillation; I25.2 Old myocardial infarction; Z79.01 Long term (current) use of anticoagulants; Z95.810 Presence of automatic (implantable) cardiac defibrillator; Z95.811 Presence of heart assist device; Z91.041 Radiographic dye allergy status; Z91.013 Allergy to seafood
CPT/HCPCS: 93005; 99284; 96374; 96375; 36415; 82553; 82550; 85025; 85610; 80053; 84484; 73080; 93010; A9270; J1170; J2405

== ENCOUNTER 2019-02-05 20:06 | Emergency (ER) | payer MEDICARE, MEDICAID ==
[2019-02-05] MEDS ORDERED: NALOXONE HCL INJ/PF 0.4 MG/1 ML SDV IV ONE (20:20)
[2019-02-05] MEDS ORDERED: NALOXONE HCL INJ/PF 0.4 MG/1 ML SDV ONE (20:22)
--- NOTE | 2019-02-05 20:27 | ER Document Report ---
ED General - General Chief Complaint: Fall Stated Complaint: HEAD LACERATION Time Seen by Provider: 02/05/19 20:12 Primary Care Provider: STEPHANIA REDMAN PA-C [Primary Care Provider] - Follow up as needed Notes: Patient is a 49-year-old LVAD patient who presents the emergency department with a chief complaint of altered mental status and a laceration and abrasions to his forehead and multiple abrasions noted on his lower extremities. According to EMS, he had pain point pupils he received a milligram of Narcan and had turnaround he also received 4 mg of Zofran. After the patient received Narcan he became shaky. He does currently take 10 mg of Percocet multiple times per day. He is also on lorazepam half a milligram his last dose was at 1300. According to his , who is at bedside, he was acting normal earlier in the day. TRAVEL OUTSIDE OF THE [place] IN LAST 30 DAYS: No - Related Data Allergies/Adverse Reactions: Iodinated Contrast- Oral and IV Dye [IV Dye, Iodine Containing] Allergy (Verified 06/14/18 12:35) Anaphylaxis iodine Allergy (Verified 06/14/18 12:35) Shellfish * [Shellfish] Allergy (Verified 06/14/18 12:35) Past Medical History - General Information source: Relative - Social History Smoking Status: Unknown if Ever Smoked Family History: Reviewed & Not Pertinent, CAD - significant family history of CAD, Other - Father: [place] and CHF; Brother: heart disease; CHF - Past Medical History Cardiac Medical History: Reports: Hx Atrial Fibrillation, Hx Congestive Heart Failure, Hx Coronary Artery Disease, Hx Heart Attack - 2013, Hx Hypercholesterolemia, Hx Hypertension Pulmonary Medical History: Denies: Hx Tuberculosis Neurological Medical History: Reports: Hx Migraine Endocrine Medical History: Reports: Hx Diabetes Mellitus Type 2 Renal/ Medical History: Reports: Hx Kidney Stones. Denies: Hx Peritoneal Dialysis Musculoskeletal Medical History: Reports Hx Arthritis, Reports Hx Musculoskeletal Deformity, Reports Hx Musculoskeletal Trauma Psychiatric Medical History: Reports: Hx Depression Traumatic Medical History: Reports: Hx Fractures Past Surgical History: Reports: Hx Cardiac Catheterization - x 10-12, Hx Cardiac Surgery - pacer/defib; stents x 2, Hx Internal Defibrillator, Hx Orthopedic Surgery - L knee x2; R knee x13, Hx Pacemaker - Immunizations Immunizations up to date: Yes Hx Diphtheria, Pertussis, Tetanus Vaccination: Yes Hx Pneumococcal Vaccination: 07/26/12 Review of Systems - Review of Systems Notes: REVIEW OF SYSTEMS: CONSTITUTIONAL : Denies recent illness. Denies recent unintentional weight loss. Denies fever, chills, or sweats. EENT: Denies eye, ear, throat, or mouth pain, discharge, or symptoms. Denies nasal or sinus congestion. CARDIOVASCULAR: Denies chest pain. RESPIRATORY: Denies shortness of breath, cough, congestion, difficulty breath ing, or wheezing. GASTROINTESTINAL: Denies nausea, vomiting, and diarrhea. Denies abdominal pain. Denies constipation. GENITOURINARY: Denies difficulty urinating, burning, blood in urine, urgency or frequency. MUSCULOSKELETAL: Denies neck and back pain. Denies joint pain or swelling. SKIN: Denies rash, itchiness, or lesions HEMATOLOGIC : Denies easy bruising or bleeding. LYMPHATIC: Denies swollen, painful, enlarged glands. NEUROLOGICAL: See HPI PSYCHIATRIC: Denies stress, anxiety, alteration in sleep patterns, or depression. All other systems reviewed and negative. Physical Exam - Vital signs Vitals: Resp Pulse Ox 19 84 L 02/05/19 20:11 02/05/19 20:11 - Notes Notes: PHYSICAL EXAMINATION: GENERAL: Appears disoriented, disheveled. HEAD: Normocephalic, atraumatic. EYES: PERRL, conjunctiva normal, all extraocular movements intact, sclera nonicteric ENT: Moist mucous membranes. NECK: Supple, no noticeable swelling, redness, rash. Normal range of motion. LUNGS: Equal breath sounds bilaterally and clear to auscultation. No wheezes rales or rhonchi. CARDIOVASCULAR: LVAD heart tones. ABDOMEN: Normoactive bowel sounds. Soft, nontender, no guarding, no rebound tenderness, and no masses palpated. EXTREMITIES: Normal strength and range of motion, no pitting or edema. No cyanosis. NEUROLOGICAL: Moves all extremities upon command. Strength 5/5 in all extremities. Confused. PSYCH: Normal mood, normal affect. SKIN: Warm, dry. Very small laceration that is not repairable noted to patient's forehead. Bilateral knee abrasions. Course - Re-evaluation Re-evalutation: 02/05/19 21:37 After receiving 0.4 mg of Narcan, the patient is awake alert and oriented. Answ ering questions appropriately. He does recognize myself, as I did take care of him a few months back. 02/05/19 22:20 Patient's chemistry shows a hyponatremia of 128. He will be started on appropriately but a little bit drowsy. CBC does not show a leukocytosis. His chest x-ray is normal. CT of the head did not show any acute intracranial bleed. Awaiting urinalysis. Patient does have worsening kidney function with a creatinine of 3. This may be due to dehydration. We will slowly rehydrate him with IV fluid. 02/05/19 23:44 Urinalysis is unremarkable. I spoke [facility] and the hospitalist will give me a call back to see if he is able to be transferred. 02/06/19 08:28 Transport is at bedside. I have assessed the patient and he is stable for discharge. He is markedly better than when I first assessed him in the beginning of the night. He is awake alert and oriented. Having normal conversation. He states he feels much better than he did earlier. - Vital Signs Vital signs: Temp Pulse Resp BP Pulse Ox 17 104/93 H 100 02/06/19 05:01 02/06/19 05:01 02/06/19 05:01 - Laboratory Result Diagrams: 02/05/19 21:10 02/05/19 21:10 Laboratory results interpreted by me: 02/05/19 02/05/19 02/05/19 21:10 21:10 21:28 RBC 3.34 L Hgb 9.6 L Hct 28.3 L RDW 17.0 H Seg Neuts % (Manual) 94 H Band Neutrophils % 1 L Lymphocytes % (Manual) 2 L Monocytes % (Manual) 2 L Metamyelocytes % 1 H Abs Neuts (Manual) 9.4 H Abs Lymphs (Manual) 0.2 L Sodium 128.1 L Potassium 5.4 H Chloride 91 L BUN 62 H Creatinine 3.08 H Est GFR ( Amer) 26 L Est GFR (Non-Af Amer) 22 L Glucose 236 H Direct Bilirubin 0.5 H Creatine Kinase 403 H Total Protein 6.2 L Albumin 3.3 L Urine Glucose (UA) 50 H Urine Blood SMALL H Ur Leukocyte Esterase SMALL H Discharge - Discharge Clinical Impression: Dehydration, Acute kidney injury Altered mental status Qualifiers: Coma depth: other Coma timing: in the field (EMT or ambulance) Condition: Fair Disposition: [facility] Referrals: STEPHANIA REDMAN PA-C [Primary Care Provider] - Follow up as needed
--- NOTE | 2019-02-05 21:08 | RADIOLOGY REPORT (SQ) ---
CT HEAD WITHOUT IV CONTRAST HISTORY: fall; AMS. COMPARISON: None. TECHNIQUE: CT scan of the brain without IV contrast. This exam was performed according to our departmental dose-optimization program, which includes automated exposure control, adjustment of the mA and/or kV according to patient size and/or use of iterative reconstruction technique. FINDINGS: The ventricles, cisterns, and sulci are age-appropriate. No evidence of acute infarction, intracranial hemorrhage, extra-axial fluid collection, or midline shift. No air-fluid levels are seen in the paranasal sinuses to suggest acute sinusitis. No depressed skull fracture. IMPRESSION: Limited study due to motion artifact. No gross intracranial hemorrhage.
--- NOTE | 2019-02-05 21:09 | RADIOLOGY REPORT (SQ) ---
XR CHEST 1 VIEW HISTORY: AMS. COMPARISON: 01/07/2019 FINDINGS: The heart size is enlarged. No consolidation, pleural effusion, or pneumothorax is seen. There are no acute bony findings. Stable LVAD device and right chest wall pacemaker. IMPRESSION: No evidence of acute cardiopulmonary disease.
[2019-02-05 21:29] LABS: HEMATOCRIT 28.3 % (37.9-51.0); HEMOGLOBIN 9.6 g/dL (13.5-17.0); MEAN CORPUSCULAR HEMOGLOBIN 28.7 pg (27.0-33.4); MEAN CORPUSCULAR HGB CONC 33.9 g/dL (32.0-36.0); MEAN CORPUSCULAR VOLUME 85 fl (80-97); PLATELET COUNT 230 10^3/uL (150-450); RED BLOOD COUNT 3.34 10^6/uL (4.35-5.55); WHITE BLOOD COUNT 9.8 10^3/uL (4.0-10.5)
[2019-02-05 21:43] LABS: ALBUMIN 3.3 g/dL (3.5-5.0); ANION GAP 14 (5-19); BLOOD UREA NITROGEN 62 mg/dL (7-20); CALCIUM 8.8 mg/dL (8.4-10.2); CARBON DIOXIDE 23 mmol/L (22-30); CHLORIDE 91 mmol/L (98-107); GLUCOSE 236 mg/dL (75-110); POTASSIUM 5.4 mmol/L (3.6-5.0); SODIUM 128.1 mmol/L (137-145); TOTAL PROTEIN 6.2 g/dL (6.3-8.2)
[2019-02-05 21:44] LABS: ALANINE AMINOTRANSFERASE 32 U/L (21-72); ALKALINE PHOSPHATASE 83 U/L (38-126); ASPARTATE AMINO TRANSFERASE 42 U/L (17-59); BILIRUBIN,DIRECT 0.5 mg/dL (0.0-0.4); BILIRUBIN,TOTAL 0.6 mg/dL (0.2-1.3); CREATINE KINASE 403 U/L (55-170)
[2019-02-05 21:45] LABS: ABSOLUTE LYMPHOCYTES# (MANUAL) 0.2 10^3/uL (0.5-4.7); ABSOLUTE MONOCYTES # (MANUAL) 0.2 10^3/uL (0.1-1.4); ABSOLUTE NEUTROPHILS# (MANUAL) 9.4 10^3/uL (1.7-8.2); BAND NEUTROPHILS % (MANUAL) 1 % (3-5); BASOPHILS % (MANUAL) 0 % (0-2); EOSINOPHILS % (MANUAL) 0 % (0-6); LYMPHOCYTES % (MANUAL) 2 % (13-45); METAMYELOCYTES % (MANUAL) 1 % (0); MONOCYTES % (MANUAL) 2 % (3-13); SEGMENTED NEUTROPHILS % (MAN) 94 % (42-78); TOTAL CELLS COUNTED 100
[2019-02-05 21:46] LABS: ANISOCYTOSIS 1+; HYPOCHROMASIA SLIGHT; PLATELET COMMENT ADEQUATE; POLYCHROMASIA SLIGHT
[2019-02-05 21:55] LABS: CREATINE KINASE MB 3.45 ng/mL (<4.55)
[2019-02-05 21:56] LABS: APPEARANCE,URINE SLIGHTLY-CLOUDY; BILIRUBIN,URINE NEGATIVE (NEGATIVE); COLOR,URINE YELLOW; GLUCOSE, URINE 50 mg/dL (NEGATIVE); KETONES,URINE NEGATIVE (NEGATIVE); LEUKOCYTE ESTERASE,URINE SMALL (NEGATIVE); NITRITE,URINE NEGATIVE (NEGATIVE); PROTEIN,URINE NEGATIVE (NEGATIVE); URINE SPECIFIC GRAVITY 1.011; UROBILINOGEN,URINE NEGATIVE mg/dL (<2.0)
[2019-02-05 21:56] LABS: TROPONIN I < 0.012 ng/mL
[2019-02-05] MEDS ORDERED: NORMAL SALINE 1000 ML 1,000 ML IV ONE (23:35)
--- NOTE | 2019-02-06 07:44 | EKG REPORT ---
SEVERITY:- DEFECTIVE ECG - TECHNICALLY POOR TRACING - PLEASE REPEAT ECG! ATRIAL-PACED VENTRICULAR PACED COMPLEXES : Confirmed by: Herbert Justice MD 06-Feb-2019 07:43:29
[2019-02-06 08:47] VITALS: BP 92/72
== END 2019-02-06 08:49 | disposition short-term general hospital (02) ==
LOC: ER 20:06
DX: S01.81XA Laceration without foreign body of other part of head, initial encounter (principal); R41.82 Altered mental status, unspecified; E86.0 Dehydration; N17.9 Acute kidney failure, unspecified; S80.812A Abrasion, left lower leg, initial encounter; S80.811A Abrasion, right lower leg, initial encounter; W19.XXXA Unspecified fall, initial encounter; Z79.899 Other long term (current) drug therapy; I50.9 Heart failure, unspecified; I25.10 Atherosclerotic heart disease of native coronary artery without angina pectoris; I11.0 Hypertensive heart disease with heart failure; E11.9 Type 2 diabetes mellitus without complications
CPT/HCPCS: 93005; 99285; 96361; 96374; 36415; 82553; 82550; 85025; 80053; 81001; 84484; 71045; 70450; 93010; J2310; J7030

== ENCOUNTER → 2019-09-21 | Outpatient (CLI) | payer MEDICARE, MEDICAID ==
--- NOTE | 2019-09-21 11:21 | RADIOLOGY REPORT (SQ) ---
EXAM DESCRIPTION: FOOT LEFT COMPLETE COMPLETED DATE/TIME: 09/21/2019 10:56 am REASON FOR STUDY: NON-PRS CHRONIC ULCER OTH PRT LEFT FOOT W FAT LAYER EXPOSED L97.522 NON-PRS CHRON IC ULCER OTH PRT LEFT FOOT W FAT LAYER E11.621 TYPE 2 DIABETES MELLITUS WITH FOOT ULCER COMPARISON: 05/13/2010 NUMBER OF VIEWS: Three views. TECHNIQUE: AP, lateral and oblique radiographic images acquired of the left foot. LIMITATIONS: None. FINDINGS: MINERALIZATION: Normal. BONES: No acute fracture or dislocation. No worrisome bone lesions. No conventional radiographic ev idence of osteomyelitis. JOINTS: Degenerative changes in the 1st metatarsal phalangeal joint. Subchondral cysts. SOFT TISSUES: Soft tissue changes along the ball of the foot OTHER: Prominent calcaneal spurs. IMPRESSION: Degenerative changes. No conventional radiographic evidence of osteomyelitis. TECHNICAL DOCUMENTATION: JOB ID: [id number] [employer]- All Rights Reserved Reading location - IP/workstation name: [email or web address]
[2019-09-21 11:42] LABS: ABSOLUTE BASOPHILS # (AUTO) 0.1 10^3/uL (0.0-0.2); ABSOLUTE EOSINOPHILS # (AUTO) 0.2 10^3/uL (0.0-0.6); ABSOLUTE LYMPHOCYTES (AUTO) 0.9 10^3/uL (0.5-4.7); ABSOLUTE MONOCYTES (AUTO) 0.6 10^3/uL (0.1-1.4); ABSOLUTE NEUT (AUTO) 4.9 10^3/uL (1.7-8.2); BASOPHILS % (AUTO) 1.1 % (0-2); EOSINOPHILS % (AUTO) 2.9 % (0-6); HEMATOCRIT 37.6 % (37.9-51.0); HEMOGLOBIN 12.3 g/dL (13.5-17.0); LYMPHOCYTES % (AUTO) 13.8 % (13-45); MEAN CORPUSCULAR HEMOGLOBIN 25.4 pg (27.0-33.4); MEAN CORPUSCULAR HGB CONC 32.8 g/dL (32.0-36.0); MEAN CORPUSCULAR VOLUME 78 fl (80-97); MONOCYTES % (AUTO) 9.5 % (3-13); PLATELET COUNT 231 10^3/uL (150-450); RED BLOOD COUNT 4.84 10^6/uL (4.35-5.55); RED CELL DISTRIBUTION WIDTH 18.6 % (11.5-14.0); SEGMENTED NEUTROPHILS % (AUTO) 72.7 % (42-78); TOTAL CELLS COUNTED % (AUTO) 100 %; WHITE BLOOD COUNT 6.8 10^3/uL (4.0-10.5)
[2019-09-21 12:08] LABS: ALKALINE PHOSPHATASE 101 U/L (38-126); ANION GAP 11 (5-19); ASPARTATE AMINO TRANSFERASE 45 U/L (17-59); BILIRUBIN,DIRECT 0.1 mg/dL (0.0-0.4); BILIRUBIN,TOTAL 0.9 mg/dL (0.2-1.3); BLOOD UREA NITROGEN 13 mg/dL (7-20); C-REACTIVE PROTEIN 23.9 mg/L (<10.0); CALCIUM 9.5 mg/dL (8.4-10.2); CARBON DIOXIDE 25 mmol/L (22-30); CHLORIDE 103 mmol/L (98-107); GLUCOSE 225 mg/dL (75-110); POTASSIUM 4.3 mmol/L (3.6-5.0); TOTAL PROTEIN 7.5 g/dL (6.3-8.2)
[2019-09-21 12:20] LABS: ERYTHROCYTE SEDIMENTATION RATE 36 mm/hr (0-15)
== END ==
LOC: WC 10:38
PROVIDERS: ATTEND Preventive Medicine Undersea and Hyperbaric Medicine
DX: E11.621 Type 2 diabetes mellitus with foot ulcer (principal); L97.522 Non-pressure chronic ulcer of other part of left foot with fat layer exposed; M19.072 Primary osteoarthritis, left ankle and foot; M77.32 Calcaneal spur, left foot
CPT/HCPCS: 36415; 80053; 83036; 85025; 85652; 86140

== ENCOUNTER → 2019-10-01 | Outpatient (CLI) | payer MEDICARE, MEDICAID ==
--- NOTE | 2019-10-02 15:40 | XCELERA REPORT ---
[address] [address] Lower Extremity Arterial Evaluation Name: KEAGAN RODARTE Age: 49 yrs Gender: Male : 1970 Patient Status: Outpatient Patient Location: Study Date: 10/01/2019 01:25 PM Procedure: A color flow and duplex scan of the lower extremity arteries was performed bilaterally with velocity and waveform anaylsis. Ankle brachial indicies performed. Reason For Study: CHRONIC ULCER Ordering Physician: LISSETH SUÁREZ Performed By: Amy Almanza Measurements and Calculations Right Left AUDITOR SUPERVISOR PSV 37.1 49.0 cm/sec Prox PFA PSV -10.6 -27.7 cm/sec Prox Pop A PSV 17.3 16.1 cm/sec Dist Pop A PSV -31.2 -21.2 cm/sec Prox KYLEE PSV 41.0 50.0 cm/sec Dist KYLEE PSV 51.5 44.8 cm/sec Prox QA AUTOMATION DEVELOPER PSV 16.3 22.2 cm/sec Mid QA AUTOMATION DEVELOPER PSV 32.4 cm/sec Dist QA AUTOMATION DEVELOPER PSV 30.3 22.4 cm/sec Masoud Pedis PSV -14.9 -33.2 cm/sec Right Side Arterial Evaluation This patient has a history of a pacemaker, ? LVAD. The arterial sanders shows mild irregularity of atherosclerotic change, on nino scale imaging. Low velocity and triphasic waveforms noted from the Common Femoral artery to the infrageniculate vessels Ankle Brachial index 1.13. Left Side Arterial Evaluation This patient has a history of a pacemaker, ? LVAD. The arterial sanders shows mild irregularity of atherosclerotic change, on nino scale imaging. Low velocity and triphasic waveforms noted from the Common Femoral artery to the infrageniculate vessels Ankle Brachial index 1.27. Interpretation Summary The lower extremity arteries have mild intrinsic disease. There may be relative low flow state secondary to cardiac compromise. Clinical correlation advised. ANETTE's are in normal range, suggesting no significant arterial obstructive disease. : LISSETH SUÁREZ > Rashaad Zamora
== END ==
LOC: SP 12:35
PROVIDERS: ATTEND Preventive Medicine Undersea and Hyperbaric Medicine
DX: L97.522 Non-pressure chronic ulcer of other part of left foot with fat layer exposed (principal)
CPT/HCPCS: 93922; 93925

== ENCOUNTER → 2020-05-27 | Outpatient (CLI) | payer MEDICARE, MEDICAID ==
[2020-05-27 12:15] LABS: HEMATOCRIT 36.7 % (37.9-51.0); HEMOGLOBIN 12.3 g/dL (13.5-17.0); MEAN CORPUSCULAR HEMOGLOBIN 26.4 pg (27.0-33.4); MEAN CORPUSCULAR HGB CONC 33.5 g/dL (32.0-36.0); MEAN CORPUSCULAR VOLUME 79 fl (80-97); PLATELET COUNT 161 10^3/uL (150-450); RED BLOOD COUNT 4.66 10^6/uL (4.35-5.55); RED CELL DISTRIBUTION WIDTH 19.9 % (11.5-14.0); WHITE BLOOD COUNT 7.7 10^3/uL (4.0-10.5)
[2020-05-27 12:19] LABS: INTERNATIONAL RATION (INR) 1.99; PROTHROMBIN TIME 22.7 SEC (11.4-15.4)
[2020-05-27 12:43] LABS: ALBUMIN 4.4 g/dL (3.5-5.0); ALKALINE PHOSPHATASE 109 U/L (38-126); ANION GAP 12 (5-19); ASPARTATE AMINO TRANSFERASE 36 U/L (17-59); BILIRUBIN,DIRECT 0.4 mg/dL (0.0-0.4); BILIRUBIN,TOTAL 0.7 mg/dL (0.2-1.3); BLOOD UREA NITROGEN 29 mg/dL (7-20); CALCIUM 10.4 mg/dL (8.4-10.2); CARBON DIOXIDE 30 mmol/L (22-30); CHLORIDE 96 mmol/L (98-107); GLUCOSE 372 mg/dL (75-110); POTASSIUM 4.7 mmol/L (3.6-5.0); TOTAL PROTEIN 7.3 g/dL (6.3-8.2)
== END ==
LOC: OD 11:10
PROVIDERS: ATTEND Nurse Practitioner
DX: I50.22 Chronic systolic (congestive) heart failure (principal); Z79.01 Long term (current) use of anticoagulants; Z95.811 Presence of heart assist device
CPT/HCPCS: 36415; 80053; 83615; 85027; 85610